=== PATIENT | female | born 1935 | race Caucasian/White ===

== ENCOUNTER 2016-07-09 22:54 | Inpatient (IN) | payer MEDICARE ==
--- NOTE | 2016-07-09 23:26 | ED ---
General Adult HPI - General Source: RN notes reviewed, old records reviewed <Geronimo Mcdaniel - Last Filed: 07/10/16 00:37> <Xavier Andrade - Last Filed: 07/10/16 03:10> - General Stated complaint: SOB Time Seen by Provider: 07/09/16 23:17 - History of Present Illness Initial comments: This is an 80 female to the ED with co SOB, and BL LE swelling, patient has history of hypertension and diabetes. Patient that the patient's symptoms began to start today although family thinks maybe for a few days now. Patient has no prior physicist emergency room. She herself denies any specific medical office. She has no chest pain. No fevers. Mild cough no congestion just complaining of shortness of breath and leg swelling. Patient states leg swelling started just today. (Geronimo Mcdaniel) - Related Data Home Medications Medication Instructions Recorded Confirmed Insulin Glargine,Hum.rec.anlog 30 unit SQ HS PRN 07/09/16 07/09/16 [Lantus Solostar] Insulin Glulisine [Apidra] 12 - 20 unit SQ BID 07/09/16 07/09/16 Losartan [Cozaar] 25 mg PO DAILY 07/09/16 07/09/16 Allergies Allergy/AdvReac Type Severity Reaction Status Date / Time Penicillins Allergy Rash/Hives Verified 07/09/16 23:31 Review of Systems ROS Other: All systems not noted in ROS Statement are negative. <Geronimo Mcdaniel - Last Filed: 07/10/16 00:37> ROS Other: All systems not noted in ROS Statement are negative. <Xavier Andrade - Last Filed: 07/10/16 03:10> ROS Statement: Those systems with pertinent positive or pertinent negative responses have been documented in the HPI. General Exam General appearance: alert, in no apparent distress, anxious Head exam: Present: atraumatic, normocephalic, normal inspection Eye exam: Present: normal appearance, PERRL, EOMI. Absent: scleral icterus, conjunctival injection, periorbital swelling ENT exam: Present: mucous membranes dry Neck exam: Present: normal inspection. Absent: tenderness, meningismus, lymphadenopathy Respiratory exam: Present: normal lung sounds bilaterally, respiratory distress , accessory muscle use, decreased breath sounds, prolonged expiratory. Absent: wheezes, rales, rhonchi, stridor Cardiovascular Exam: Present: tachycardia, irregular rhythm, normal heart sounds. Absent: systolic murmur, diastolic murmur, rubs, gallop, clicks GI/Abdominal exam: Present: soft, normal bowel sounds. Absent: distended, tenderness, guarding, rebound, rigid Extremities exam: Present: normal inspection, full ROM, normal capillary refill , other (Bilateral lower extremity edema). Absent: tenderness, pedal edema, joint swelling, calf tenderness Back exam: Present: normal inspection Neurological exam: Present: alert, oriented X3, CN II-XII intact Psychiatric exam: Present: normal affect, normal mood Skin exam: Present: warm, dry, intact, normal color. Absent: rash <Geronimo Mcdaniel - Last Filed: 07/10/16 00:37> Course <Geronimo Mcdaniel - Last Filed: 07/10/16 00:37> <Xavier Andrade - Last Filed: 07/10/16 03:10> Vital Signs 07/09/16 07/10/16 07/10/16 23:25 00:19 00:49 Temperature 96.8 F L Pulse Rate 72 98 83 Respiratory 22 18 18 Rate Blood Pressure 155/85 168/70 163/90 O2 Sat by Pulse 96 97 97 Oximetry 07/10/16 01:37 Temperature Pulse Rate 89 Respiratory 18 Rate Blood Pressure 115/57 O2 Sat by Pulse 96 Oximetry - Reevaluation(s) Reevaluation #1: 07/10/16 00:36 Patient is refusing breathing treatments at this time (Geronimo Mcdaniel) EKG Findings - EKG Comments: EKG Findings:: EKG shows A. fib with RVR rate 108, QRS 64, QTc 201 <Geronimo Mcdaniel - Last Filed: 07/10/16 00:37> Medical Decision Making - Lab Data Result diagrams: 07/09/16 23:30 07/09/16 23:30 - Radiology Data Radiology results: report reviewed (Chest x-ray shows left lower and lingular infiltrate, possible severe atelectasis), image reviewed <Geronimo Mcdaniel - Last Filed: 07/10/16 00:37> - Lab Data Result diagrams: 07/09/16 23:30 07/09/16 23:30 <Xavier Andrade - Last Filed: 07/10/16 03:10> - Lab Data Lab Results 07/09/16 07/09/16 07/09/16 Range/Units 23:30 23:30 23:30 WBC 8.2 (3.8-10.6) k/uL RBC 3.93 (3.80-5.40) m/uL Hgb 11.5 (11.4-16.0) gm/dL Hct 35.4 (34.0-46.0) % MCV 90.1 (80.0-100.0) fL MCH 29.3 (25.0-35.0) pg MCHC 32.6 (31.0-37.0) g/dL RDW 13.2 (11.5-15.5) % Plt Count 222 (150-450) k/uL Neutrophils % 72 % Lymphocytes % 18 % Monocytes % 5 % Eosinophils % 2 % Basophils % 0 % Neutrophils # 5.8 (1.3-7.7) k/uL Lymphocytes # 1.5 (1.0-4.8) k/uL Monocytes # 0.4 (0-1.0) k/uL Eosinophils # 0.2 (0-0.7) k/uL Basophils # 0.0 (0-0.2) k/uL PT (9.0-12.0) sec INR (<1.1) APTT (22.0-30.0) sec D-Dimer (<0.60) mg/L FEU Sodium 134 L (137-145) mmol/L Potassium 4.9 (3.5-5.1) mmol/L Chloride 100 (98-107) mmol/L Carbon Dioxide 25 (22-30) mmol/L Anion Gap 9 mmol/L BUN 25 H (7-17) mg/dL Creatinine 1.20 H (0.52-1.04) mg/dL Est GFR (MDRD) Af Amer 52 (>60 ml/min/1.73 sqM) Est GFR (MDRD) Non-Af 43 (>60 ml/min/1.73 sqM) Glucose 93 (74-99) mg/dL Calcium 9.5 (8.4-10.2) mg/dL Magnesium 1.9 (1.6-2.3) mg/dL Total Bilirubin 0.3 (0.2-1.3) mg/dL AST 20 (14-36) U/L ALT 36 (9-52) U/L Alkaline Phosphatase 102 (38-126) U/L Total Creatine Kinase 38 (30-135) U/L CK-MB (CK-2) 0.5 (0.0-2.4) ng/mL CK-MB (CK-2) Rel Index 1.3 Troponin I <0.012 (0.000-0.034) ng/mL NT-Pro-B Natriuret Pep pg/mL Total Protein 7.3 (6.3-8.2) g/dL Albumin 3.9 (3.5-5.0) g/dL 07/09/16 07/09/16 Range/Units 23:30 23:30 WBC (3.8-10.6) k/uL RBC (3.80-5.40) m/uL Hgb (11.4-16.0) gm/dL Hct (34.0-46.0) % MCV (80.0-100.0) fL MCH (25.0-35.0) pg MCHC (31.0-37.0) g/dL RDW (11.5-15.5) % Plt Count (150-450) k/uL Neutrophils % % Lymphocytes % % Monocytes % % Eosinophils % % Basophils % % Neutrophils # (1.3-7.7) k/uL Lymphocytes # (1.0-4.8) k/uL Monocytes # (0-1.0) k/uL Eosinophils # (0-0.7) k/uL Basophils # (0-0.2) k/uL PT 10.5 (9.0-12.0) sec INR 1.0 (<1.1) APTT 24.6 (22.0-30.0) sec D-Dimer 1.16 H (<0.60) mg/L FEU Sodium (137-145) mmol/L Potassium (3.5-5.1) mmol/L Chloride (98-107) mmol/L Carbon Dioxide (22-30) mmol/L Anion Gap mmol/L BUN (7-17) mg/dL Creatinine (0.52-1.04) mg/dL Est GFR (MDRD) Af Amer (>60 ml/min/1.73 sqM) Est GFR (MDRD) Non-Af (>60 ml/min/1.73 sqM) Glucose (74-99) mg/dL Calcium (8.4-10.2) mg/dL Magnesium (1.6-2.3) mg/dL Total Bilirubin (0.2-1.3) mg/dL AST (14-36) U/L ALT (9-52) U/L Alkaline Phosphatase (38-126) U/L Total Creatine Kinase (30-135) U/L CK-MB (CK-2) (0.0-2.4) ng/mL CK-MB (CK-2) Rel Index Troponin I (0.000-0.034) ng/mL NT-Pro-B Natriuret Pep 1350 pg/mL Total Protein (6.3-8.2) g/dL Albumin (3.5-5.0) g/dL Disposition <Geronimo Mcdaniel - Last Filed: 07/10/16 00:37> <Xavier Andrade - Last Filed: 07/10/16 03:10> Clinical Impression: Congestive heart failure, Community acquired pneumonia, Atrial fibrillation with RVR Disposition: ADMITTED IP TO THIS HOSP Condition: Fair Referrals: Maritza Bee DO [Primary Care Provider] - 1-2 days
[2016-07-09] MEDS ORDERED: IPRATROPIUM-ALBUTEROL 3 ML NEB INHALATION STA (23:29)
[2016-07-09 23:57] LABS: Basophils % (A) 0 %; CH 29.4; CHCM 32.7; Eosinophils # (A) 0.2 k/uL (0-0.7); Eosinophils % (A) 2 %; HCT 35.4 % (34.0-46.0); HDW 2.59; HGB 11.5 gm/dL (11.4-16.0); Luc # (Auto) 0.22; Luc % (Auto) 3; Lymphocytes # (A) 1.5 k/uL (1.0-4.8); Lymphocytes % (A) 18 %; MCH 29.3 pg (25.0-35.0); MCHC 32.6 g/dL (31.0-37.0); MCV 90.1 fL (80.0-100.0); Mean Platelet Volume 8.4; Monocytes # (A) 0.4 k/uL (0-1.0); Monocytes % (A) 5 %; Neutrophils # (A) 5.8 k/uL (1.3-7.7); Neutrophils % (A) 72 %; RBC 3.93 m/uL (3.80-5.40); RDW 13.2 % (11.5-15.5); WBC 8.2 k/uL (3.8-10.6); WBC (Perox) 8.71
[2016-07-10 00:04] LABS: Creatine Kinase 38 U/L (30-135)
[2016-07-10 00:07] LABS: Calcium 9.5 mg/dL (8.4-10.2); Magnesium 1.9 mg/dL (1.6-2.3); Potassium 4.9 mmol/L (3.5-5.1); Total Bilirubin 0.3 mg/dL (0.2-1.3); Total Protein 7.3 g/dL (6.3-8.2)
[2016-07-10 00:10] LABS: Partial Thromboplastin Time 24.6 sec (22.0-30.0); Prothrombin Time 10.5 sec (9.0-12.0)
[2016-07-10 00:17] LABS: Creatine Kinase MB 0.5 ng/mL (0.0-2.4); Troponin I <0.012 ng/mL (0.000-0.034)
[2016-07-10] MEDS ORDERED: RX INFO: IV CONTRAST WAS GIVEN 1 EACH MISC MISCELLANE PRN (00:32)
[2016-07-10] MEDS ORDERED: PNEUMONIA PROTOCOL UTILIZED 1 EACH MISC PO PRN (00:33)
[2016-07-10] MEDS ORDERED: PIPERACILLIN-TAZOBACTAM 3.375 GM in DEXTROSE/WATER 1 50ML.BAG IVPB STA (00:33)
[2016-07-10] MEDS ORDERED: IPRATROPIUM-ALBUTEROL 3 ML NEB INHALATION PRN (00:33)
[2016-07-10] MEDS ORDERED: LEVOFLOXACIN 750MG-D5W PMX 750 MG in DEXTROSE/WATER 1 150ML.BAG IVPB STA (00:33)
[2016-07-10] MEDS ORDERED: HEPARIN SODIUM,PORCINE 5,000 UNIT/ML 1 ML VIAL IV PRN (00:37)
[2016-07-10] MEDS ORDERED: HEPARIN SODIUM,PORCINE 5,000 UNIT/ML 1 ML VIAL IV ONE (00:37)
[2016-07-10] MEDS ORDERED: DILTIAZEM 5 MG/ML 5 ML VIAL IVP STA (00:44)
[2016-07-10] MEDS ORDERED: DILTIAZEM 125 MG in SODIUM CHLORIDE 0.9% 100 ML IV ONE (00:44)
[2016-07-10] MEDS ORDERED: HEPARIN SODIUM,PORCINE/D5W PMX 25,000 UNIT in DEXTROSE/WATER 1 500ML.BAG IV SCH (00:45)
--- NOTE | 2016-07-10 01:06 | XR ---
Chest PA and lateral views INDICATION: Dyspnea COMPARISON: None. FINDINGS: PA and lateral views of the chest are obtained. There is cardiomegaly and thoracic aortic atherosclerosis. Pulmonary vasculature is congested and there is interstitial edema. There are moderate right and small left layering pleural effusions with bibasilar airspace disease, atelectasis versus infiltrate. There is no pneumothorax. Limited skeletal evaluation demonstrates no acute findings. IMPRESSION: 1. Cardiomegaly with congestive heart failure and bilateral pleural effusions, moderate on the left and small on the right. 2. Bibasilar airspace disease, atelectasis versus infiltrate.
[2016-07-10] MEDS: SODIUM CHLORIDE 0.9% 1,000 ML IV SCH (01:08)
--- NOTE | 2016-07-10 02:17 | CT ---
INDICATION: Chest pain TECHNIQUE: CT acquisition was performed through the chest per CT angiogram protocol following the administration of IV contrast. Coronal and sagittal reformatted images and 3-D MIP reconstructed images were provided. Total DLP 409 mGy-cm; CTDIvol 138.10 mGy. COMPARISON: CXR 07/09/16 FINDINGS: No evidence of pulmonary embolus. Main pulmonary artery is normal in caliber. There is cardiomegaly without pericardial effusion. There is reflux of contrast into the hepatic veins indicating elevated right heart filling pressure. Thoracic aorta is normal in caliber. 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 There is multicompartment mediastinal adenopathy including high right paratracheal lymph nodes measuring 13 mm short axis. There is an enlarged left scalene lymph node. There is a moderate organizing left pleural effusion with compressive atelectasis of the left lower lobe and lingula. The right lung and aerated portions of the left upper lobe demonstrate diffuse alveolar groundglass attenuation suggesting pulmonary edema. There is no pneumothorax. Visualized upper abdomen demonstrates prior cholecystectomy and fat- containing ventral abdominal wall hernia. Bones are osteopenic. There is no evidence of acute fracture or malalignment. Crescentic calcification/ossification is noted in the region of the right rotator cuff and may represent calcific tendinopathy or sequela of prior injury. IMPRESSION: 1. No CT evidence of acute pulmonary embolism. 2. Moderate organizing left pleural effusion with left lower lobe and lingular atelectasis. 3. Bilateral alveolar groundglass opacity in the right lung and aerated left upper lobe suggesting pulmonary edema. 4. Cardiomegaly with evidence of elevated right heart filling pressure. 5. Multicompartment mediastinal adenopathy with paratracheal lymph nodes measuring up to 13 mm. Enlarged left scalene lymph node is noted. 6. Ventral abdominal wall hernia containing fat. 7. 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
--- NOTE | 2016-07-10 02:32 | US ---
INDICATION: TECHNIQUE: Real-time sonographic imaging of the bilateral common femoral, superficial femoral and popliteal veins is performed utilizing intermittent compression. The study is supplemented with color flow imaging and duplex Doppler during spontaneous flow and calf augmentation. COMPARISON: None. FINDINGS: Normal compressibility is demonstrated from the common femoral vein to the popliteal vein bilaterally. There is normal response to augmentation. Normal spontaneous phasic flow is noted. IMPRESSION: No evidence of deep venous thrombosis.
[2016-07-10 05:57] LABS: Glucose,Whole Blood 171 mg/dL (75-99)
[2016-07-10] MEDS ORDERED: METOPROLOL TARTRATE 50 MG TAB PO SCH (10:15)
[2016-07-10] MEDS: LOSARTAN 25 MG TAB PO SCH (11:06)
[2016-07-10] MEDS: APIXABAN 2.5 MG TABLET PO SCH ×2 (11:06→21:01)
[2016-07-10] MEDS: FUROSEMIDE 10 MG/ML 4 ML VIAL IV SCH ×2 (11:07→21:02)
--- NOTE | 2016-07-10 11:28 | ECHOF ---
Referral Reason:AFIB MEASUREMENTS -------- HEIGHT: 132.1 cm WEIGHT: 81.7 kg BP: 140/60 RVIDd: 1.6 cm (< 3.3) IVSd: 1.0 cm (0.6 - 1.1) LVIDd: 4.1 cm (3.9 - 5.3) LVPWd: 1.2 cm (0.6 - 1.1) IVSs: 1.4 cm LVIDs: 2.7 cm LVPWs: 1.7 cm LA Diam: 3.4 cm (2.7 - 3.8) LAESV Index (A-L): 33.55 ml/m Ao Diam: 2.4 cm (2.0 - 3.7) AV Cusp: 1.6 cm (1.5 - 2.6) LA Diam: 3.4 cm (2.7 - 3.8) MV EXCURSION: 13.362 mm (> 18.000) MV EF SLOPE: 46 mm/s (70 - 150) EPSS: 0.4 cm MV E Slim: 1.47 m/s MV DecT: 203 ms MV A Slim: 0.53 m/s MV E/A Ratio: 2.75 RAP: 5.00 mmHg RVSP: 56.30 mmHg FINDINGS -------- Undetermined rhythm. This was a technically adequate study. There is mild concentric left ventricular hypertrophy. Overall left ventricular systolic function is low-normal with, an EF between 50 - 55 %. The right ventricle is normal in size. LA is midly dilated 29-33ml/m2. The right atrial size is normal. There is mild aortic valve sclerosis. There is mild aortic regurgitation. Mild mitral annular calcification present. Mild mitral regurgitation is present. Mild tricuspid regurgitation present. There is moderate pulmonary hypertension. The right ventricular systolic pressure, as measured by Doppler, is 56.30mmHg. There is no pulmonic regurgitation present. The aortic root size is normal. There is no pericardial effusion. CONCLUSIONS -------- 1. There is mild concentric left ventricular hypertrophy. 2. The right ventricular systolic pressure, as measured by Doppler, is 56.30mmHg. 3. There is no pulmonic regurgitation present. 4. Overall left ventricular systolic function is low-normal with, an EF between 50 - 55 %. 5. LA is midly dilated 29-33ml/m2. 6. There is mild aortic valve sclerosis. 7. There is mild aortic regurgitation. 8. Mild mitral annular calcification present. 9. Mild mitral regurgitation is present. 10. Mild tricuspid regurgitation present. 11. There is moderate pulmonary hypertension. BRIM STRETCHER: Stacie Angel RDCS
--- NOTE | 2016-07-10 11:32 | CONS ---
DATE OF CONSULTATION: CHIEF COMPLAINT: Shortness of breath. Ailin is an 80-year-old lady with no significant past medical history who presented to hospital with moderate to severe exertional shortness of breath that came on suddenly and she also had leg edema with moderate to severe intensity at rest, got worse with activity without clear-cut relieving or exacerbating factors. EKG showed atrial fibrillation with rapid ventricular rate and frequent PVCs. Labs showed that the hemoglobin is normal. D-dimer was slightly elevated, but she went on to have a CT scan of the chest that was negative for pulmonary embolism. Chest x-ray revealed left-sided pleural effusion and BNP is elevated suggestive of acute onset congestive heart failure. We do not have an LV function on her at this time. She was also in A. fib with RVR, A. fib with poorly controlled ventricular rate. I believe patient's clinical presentation is related to both the atrial fibrillation and the congestive heart failure and we are going to treat both of them. I will do an echocardiogram to document her LV function. Once her heart rate is adequately controlled and she is adequately anticoagulated and out of failure, she can be discharged home and work-up and treatment pursued as outpatient. She will need cardiac stress test to rule out ischemic heart disease and will subsequently undergo cardioversion. Past medical history is significant for insulin-requiring diabetes and hypertension. Medications include: 1. Cozaar 25 daily. 2. Insulin. THE PATIENT IS ALLERGIC TO PENICILLIN. FAMILY HISTORY: Negative for premature coronary artery disease. SOCIAL HISTORY: Negative for smoking, ETOH abuse, or drug abuse. REVIEW OF SYSTEMS: HEENT: Unremarkable. CARDIAC: As described above. RESPIRATORY: As described above. GI: Negative. GENITOURINARY: Negative. Allergy/immunology: Negative. SKIN: Negative. MUSCULOSKELETAL: Significant for arthritis. PSYCHOSOCIAL: Negative. Dermatology: Negative. CONSTITUTIONAL: Negative. Oncological: Negative. HEMATOLOGICAL: Negative. REPRODUCTIVE HEALTHCARE ASSISTANT: Negative. On exam, heart rate is 100 beats per minute, afebrile. Blood pressure is 140/80, respiratory rate is 18. Chest exam reveals diminished air entry at the left base. Heart exam reveals first and second heart sounds, irregular rhythm. ABDOMEN: Soft. Exam of the extremities did not reveal any edema. Peripheral pulses are palpable. EKG shows atrial fibrillation. Labs have been reviewed. ASSESSMENT: 1. Persistent atrial fibrillation. 2. Acute onset congestive heart failure. PLAN: I will treat the patient with Eliquis, beta blockers, intravenous diuretics, PARVIZ inhibitors. I anticipate her getting better over the next 1 to 2 days.
[2016-07-10 11:59] LABS: Glucose,Whole Blood 179 mg/dL (75-99)
[2016-07-10] MEDS ORDERED: PIPERACILLIN-TAZOBACTAM 3.375 GM in DEXTROSE/WATER 1 50ML.BAG IVPB SCH (16:00)
[2016-07-10 16:48] LABS: Glucose,Whole Blood 269 mg/dL (75-99)
[2016-07-10] MEDS ORDERED: INSULIN GLARGINE 100 UNIT/ML 10 ML VIAL SQ PRN (19:01)
[2016-07-10 21:34] LABS: Glucose,Whole Blood 237 mg/dL (75-99)
[2016-07-10] MEDS: INSULIN LISPRO (humaLOG) 300 UNIT/3 ML VIAL SQ SCH (22:27)
[2016-07-11] MEDS: METOPROLOL TARTRATE 50 MG TAB PO SCH ×3 (02:08→20:33)
[2016-07-11] MEDS: SODIUM CHLORIDE 0.9% 1,000 ML IV SCH (04:24)
[2016-07-11 06:26] LABS: Glucose,Whole Blood 177 mg/dL (75-99)
[2016-07-11 06:28] LABS: Basophils % (A) 0 %; Eosinophils # (A) 0.1 k/uL (0-0.7); Eosinophils % (A) 1 %; HCT 33.6 % (34.0-46.0); HDW 2.55; HGB 10.7 gm/dL (11.4-16.0); Luc # (Auto) 0.22; Luc % (Auto) 2; Lymphocytes # (A) 1.4 k/uL (1.0-4.8); Lymphocytes % (A) 15 %; MCH 28.9 pg (25.0-35.0); MCHC 31.8 g/dL (31.0-37.0); MCV 90.8 fL (80.0-100.0); Mean Platelet Volume 8.9; Monocytes # (A) 0.6 k/uL (0-1.0); Monocytes % (A) 6 %; Neutrophils # (A) 7.1 k/uL (1.3-7.7); Neutrophils % (A) 76 %; RDW 13.1 % (11.5-15.5); WBC 9.3 k/uL (3.8-10.6); WBC (Perox) 9.88
[2016-07-11 06:44] LABS: Calcium 9.2 mg/dL (8.4-10.2); Potassium 4.6 mmol/L (3.5-5.1)
[2016-07-11] MEDS: INSULIN LISPRO (humaLOG) 300 UNIT/3 ML VIAL SQ SCH ×4 (07:02→20:39)
--- NOTE | 2016-07-11 07:28 | XR ---
EXAMINATION TYPE: XR chest 2V DATE OF EXAM: 07/11/2016 7:20 AM COMPARISON: 07/09/2016 TECHNIQUE: PA and lateral views submitted. HISTORY: Pain FINDINGS: Large area of consolidation pleural effusion on the left. Diffuse interstitial pattern and cardiomega ly. Atherosclerotic change aorta, diffuse osteopenia and arthropathy shoulders. Underlying COPD suspe cted. Chronic rib deformity on the right. Could not exclude paratracheal or mediastinal adenopathy. IMPRESSION: 1. Moderate-sized left pleural effusion with consolidation. 2. Subsegmental changes involving the right lung. With interstitial process. May represent interstiti al pneumonitis or mild superimposed venous congestion on a background of COPD. 3. Cannot exclude paratracheal or mediastinal adenopathy.
[2016-07-11 08:22] LABS: Hemoglobin A1C 6.3 % (4.2-6.1)
[2016-07-11] MEDS ORDERED: LEVOFLOXACIN 750MG-D5W PMX 750 MG in DEXTROSE/WATER 1 150ML.BAG IVPB SCH (09:00)
[2016-07-11] MEDS: LOSARTAN 25 MG TAB PO SCH (09:12)
[2016-07-11] MEDS: APIXABAN 2.5 MG TABLET PO SCH (09:12)
[2016-07-11] MEDS: FUROSEMIDE 10 MG/ML 4 ML VIAL IV SCH ×2 (09:12→20:39)
[2016-07-11 10:20] VITALS: RESP 18
--- NOTE | 2016-07-11 10:36 | PN ---
DATE OF SERVICE: 07/10/2016 CHIEF COMPLAINT: Shortness of breath and leg swelling. HISTORY OF PRESENT ILLNESS: This 80-year-old woman with a past medical history of multiple medical problems including diabetes, hypertension, section, cholecystectomy being followed by Dr. Bee in the outpatient setting is complaining of shortness of breath, which is increasing with exertion and as well also bilateral leg swelling. Patient came to [facility] and was found to have CHF and possible pneumonia on the left side. The patient was admitted for further evaluation and treatment. There is no history of any fever, rigors. No history of headaches. The patient complained of occasional cough. Creatinine is elevated. Initial blood sugars also elevated. PAST MEDICAL HISTORY: History of diabetes, hypertension, history of cholecystectomy. Medications prior to admission include: 1. Insulin Apidra a.c. b.i.d. 2. Cozaar 25 mg daily. 3. Insulin Lantus 30 units subcu q.h.s. p.r.n. Allergies are PENICILLIN and ORANGE JUICE. FAMILY HISTORY: No history of heart disease or strokes in the family. SOCIAL HISTORY: No history of smoking. No history of alcohol abuse. REVIEW OF SYSTEMS: ENT: Diminishing hearing, diminished vision. CARDIOVASCULAR: As mentioned earlier. RESPIRATORY: As mentioned earlier. GI: No nausea. : No dysuria. NERVOUS SYSTEM: No numbness or weakness. ALLERGY/IMMUNOLOGY: No history of asthma or hayfever. MUSCULOSKELETAL: As mentioned earlier. ENDOCRINE: Diabetes to especially in the stomach. HEMATOLOGY: No history of anemia. ENDOCRINE: Diabetes mellitus. CONSTITUTIONAL: As mentioned earlier. DERMATOLOGY: Negative. RHEUMATOLOGY: Negative. PSYCHIATRY: As mentioned earlier. PHYSICAL EXAMINATION: Alert and oriented x3. Pulse is 60. Blood pressure 138/80, respiration 22, temperature 97.5, pulse ox 96% on 2 L HEENT: Conjunctivae normal. Oral mucosa moist. NECK: No jugular venous distention. No carotid bruit. No lymph node enlargement. CARDIOVASCULAR: S1 and S2, muffled. No S3, no S4. RESPIRATORY: Breath sounds diminished at the bases. Bilateral scattered rhonchi and crackles ABDOMEN: Soft, nontender. LEGS: No edema, no swelling. NERVOUS SYSTEM: No focal deficits. Labs are at this time D-dimer is 1.16. Creatinine is 1.20. ASSESSMENT: 1. Congestive heart failure, acute exacerbation. 2. Possible left lower lobe pneumonia. 3. Diabetes mellitus type 2. 4. Increased creatinine with possible chronic kidney disease stage III. 5. Hyponatremia. 6. Increased d-dimer. 7. Increased D-dimer without any evidence of pulmonary embolism. 8. Left pleural effusion on the CAT scan. 9. Premature ventricular contractions. 10. Hypertension. 11. Diabetes mellitus type 2. 12. History of cholecystectomy. 13. FULL CODE. RECOMMENDATIONS AND DISCUSSION: This 80-year-old woman who presented with multiple complex medical issues, we will monitor the patient closely. Continue the current medications. Continue symptomatic treatment. Continue with IV diuretics. Also initiate empiric antibiotics, cardiology and pulmonary consultations, bronchodilators, 2-D echo with Doppler. Guarded prognosis because of multiple complex medical issues. Further recommendations to follow. A copy of dictation forwarded to Dr. Bee who is the primary physician. with the patient and family MANUELITO
--- NOTE | 2016-07-11 11:25 | HP ---
DATE OF ADMISSION: The patient is a very pleasant 80-year-old female came with progressive shortness of breath and orthopnea. No clear cut PND. Patient was also complaining of bilateral lower leg swelling. Has been going on for more than a week. Denied any fever or chills. Was complaining of cough. Unable to produce any sputum. Denied any fever or chills. The patient is found to have ( ) moderate on the left and mild on the right with pulmonary venous congestion. Patient had a CT angio of the chest which is negative for pulmonary embolism . No evidence of pneumonia on the CT. I discontinued the antibiotics. Patient is also found to be in atrial fibrillation with rapid ventricular rate was started on Cardizem. Echocardiogram was obtained which showed normal ejection fraction. Her pulmonary ( )is probably precipitated by atrial fibrillation. REVIEW OF SYSTEMS: CONSTITUTIONAL: No fever, no malaise, no fatigue. HEENT: No recent visual problems or hearing problems. Denied any sore throat. CARDIOVASCULAR: As described in HPI. PULMONARY: No shortness of breath, no cough, no hemoptysis. GASTROINTESTINAL: No diarrhea, no nausea, no vomiting, no abdominal pain. Normoactive bowel sounds. NEUROLOGICAL: No headaches, no weakness, no numbness. HEMATOLOGICAL: Denies any bleeding or petechiae. GENITOURINARY: Denies any burning micturition, frequency, or urgency. MUSCULOSKELETAL/RHEUMATOLOGICAL: Denies any joint pain, swelling, or any muscle pain. ENDOCRINE: Denies any polyuria or polydipsia. The rest of the 14 point review of systems is negative. PAST MEDICAL HISTORY: Significant for diabetes mellitus, hypertension, section, cholecystectomy. SOCIAL HISTORY: Denied any smoking, alcohol abuse or any drug abuse. FAMILY HISTORY: Significant for diabetes mellitus in the family. PHYSICAL EXAMINATION: VITAL SIGNS: Temperature 97.5, pulse of 60, respiratory rate of 22, blood pressure is 138/80, saturating at 96% on 2 L of O2 nasal cannula. GENERAL: The patient is alert and oriented x3, not in any acute distress. Well developed, well nourished. HEENT: Pupils are round and equally reacting to light. EOMI. No scleral icterus. No conjunctival pallor. Normocephalic, atraumatic. No pharyngeal erythema. No thyromegaly. CARDIOVASCULAR: S1 and S2 present. Patient has elevated JVD. Bilateral pedal edema, 1 to 2+ pitting pedal edema. Rhythm is tachycardiac. LUNG EXAMINATION: Rhonchus breath sounds. Bilateral basilar crackles were appreciated. No wheezing was appreciated. ABDOMEN: Soft, nontender, nondistended, normoactive bowel sounds. No palpable organomegaly. MUSCULOSKELETAL: No joint swelling or deformity. EXTREMITIES: No cyanosis, clubbing, or pedal edema. NEUROLOGICAL: Gross neurological examination did not reveal any focal deficits. SKIN: No rashes. LABORATORY DATA: CBC and CMP are abnormal for elevated BUN and creatinine of 25 and 1.2. Did not have ( ) creatinine. Sodium 134. Patient's home medications include: 1. Insulin glargine 30 units and ( ). 2. Losartan 25 p.o. daily. ASSESSMENT AND PLAN: 1. Shortness of breath and progressive dyspnea, probably secondary to congestive heart failure, chronic diastolic dysfunction with acute exacerbation. Acute hypoxic respiratory failure due to congestive heart failure, chronic diastolic dysfunction acute exacerbation . 2. New onset atrial fibrillation. Patient was started on Eliquis and ( ) oral medications and Cardizem is being discontinued. Patient has a normal ejection fraction. Patient has probably chronic diastolic dysfunction with acute exacerbation. 3. Diabetes mellitus. Patient will be continued on her home regimen. 4. Hypertension. Patient will be continued on losartan, which is also her ( ). 5. Acute renal failure secondary prerenal azotemia secondary to congestive heart failure exacerbation. 6. Hypovolemic hyponatremia secondary to congestive heart failure.
[2016-07-11 11:52] LABS: Glucose,Whole Blood 193 mg/dL (75-99)
--- NOTE | 2016-07-11 12:29 | US ---
EXAMINATION TYPE: US chest DATE OF EXAM: 07/11/2016 11:55 AM COMPARISON: CXR in PACS CLINICAL HISTORY: lt pleural effusion. SOB, left pleural effusion EXAM MEASUREMENTS: Left Pleural Effusion fluid pocket: 9.5 cm Left skin to fluid thickness: 5.1 cm Left side marked for possible thoracentesis outside the dept. Pulmonologists are able to review the images in the patient?s EMR. TECHNOLOGIST IMPRESSION: Left pleural effusion Moderate left pleural effusion is noted. IMPRESSIONS: Left pleural effusion, the overlying skin is marked for the referring clinician for poss ible thoracentesis
--- NOTE | 2016-07-11 13:12 | P.CNPUL ---
History of Present Illness Consult date: 07/11/16 Requesting physician: Clinton Corral Reason for consult: dyspnea Chief complaint: Shortness of breath History of present illness: This is an 80-year-old female with history of multiple medical problems including diabetes, hypertension, presented to the ER yesterday with a few days ' history of shortness of breath and increased swelling in her lower extremities. Chest x-ray showed congestive heart failure and good sized left- sided pleural effusion. This was confirmed on the CT of the chest and on ultrasound. The effusion is most likely secondary to congestive heart failure, however the possibility of parapneumonic effusion or malignant pleural effusion is not entirely ruled out. Considering the abnormal chest x-ray and the presentation, I was asked to see this patient on consultation. Patient is not a great historian, but family at bedside were answering most of my questions. Patient denies any headaches no blurred vision no dizziness no chest pain no nausea no vomiting no abdominal pain no melena and no hematemesis. Review of Systems 14 point review of systems were obtained, please refer to pertinent positives and negatives in HPI. Past Medical History Past Medical History: Diabetes Mellitus, Hypertension History of Any Multi-Drug Resistant Organisms: None Reported Past Surgical History: Section, Cholecystectomy Past Anesthesia/Blood Transfusion Reactions: No Reported Reaction Past Psychological History: No Psychological Hx Reported Smoking Status: Never smoker Past Alcohol Use History: None Reported Past Drug Use History: None Reported Medications and Allergies Home Medications Medication Instructions Recorded Confirmed Type Insulin Glargine,Hum.rec.anlog 30 unit SQ HS PRN 07/09/16 07/10/16 History [Lantus Solostar] Insulin Glulisine [Apidra] See Protocol SQ AC-BID 07/09/16 07/10/16 History Losartan [Cozaar] 25 mg PO DAILY 07/09/16 07/10/16 History Allergies Allergy/AdvReac Type Severity Reaction Status Date / Time Penicillins Allergy Rash/Hives Verified 07/10/16 08:39 orange juice AdvReac Nausea Verified 07/10/16 08:39 Physical Exam Vitals: Vital Signs Temp Pulse Resp BP Pulse Ox 07/11/16 12:00 97.3 F L 58 L 18 140/78 97 07/11/16 08:00 97.1 F L 74 18 158/71 97 07/11/16 04:00 97.0 F L 59 L 16 133/78 98 07/11/16 00:00 96.7 F L 55 L 16 154/86 97 07/10/16 20:00 97.2 F L 60 18 127/89 98 07/10/16 16:00 97.5 F L 60 22 138/80 96 Intake and Output 07/10/16 07/11/16 07/11/16 22:59 06:59 14:59 Intake Total 150 150 Balance 150 150 Intake: Oral 150 150 Other: Voiding Method Toilet Toilet Toilet # Voids 1 1 Weight 80.6 kg Physical Exam: Revealed an 80-year-old female in no distress HEENT:[Neck is supple.] [No neck masses.] [No thyromegaly.] [No JVD.] Chest: [Diminished breath sounds and dullness at the left base otherwise unremarkable.] Cardiac Exam: [Normal S1 and S2, no S3 gallop, no murmur.] Abdomen: [Soft, nontender, no megaly, no rebound, no guarding, normal bowel sounds.] Extremities: [No clubbing, no edema, no cyanosis.] Neurological Exam: [Patient is confused but no focal neurologic deficit otherwise.] Results - Laboratory Findings CBC and BMP: 07/11/16 05:36 07/11/16 05:36 PT/INR, D-dimer PT 10.5 sec (9.0-12.0) 07/09/16 23:30 INR 1.0 (<1.1) 07/09/16 23:30 D-Dimer 1.16 mg/L FEU (<0.60) H 07/09/16 23:30 Abnormal lab findings: Abnormal Labs 07/10/16 07/10/16 07/10/16 05:55 06:34 11:57 RBC Hgb Hct APTT 64.0 H Sodium Chloride BUN Creatinine Glucose POC Glucose (mg/dL) 171 H 179 H Hemoglobin A1c 07/10/16 07/10/16 07/11/16 16:43 21:32 05:36 RBC Hgb Hct APTT Sodium Chloride BUN Creatinine Glucose POC Glucose (mg/dL) 269 H 237 H Hemoglobin A1c 6.3 H 07/11/16 07/11/16 07/11/16 05:36 05:36 06:20 RBC 3.70 L Hgb 10.7 L Hct 33.6 L APTT Sodium 134 L Chloride 97 L BUN 29 H Creatinine 1.75 H Glucose 159 H POC Glucose (mg/dL) 177 H Hemoglobin A1c 07/11/16 11:45 RBC Hgb Hct APTT Sodium Chloride BUN Creatinine Glucose POC Glucose (mg/dL) 193 H Hemoglobin A1c - Diagnostic Findings Chest x-ray: image reviewed (Chest x-ray is suggestive of congestive heart failure and left pleural effusion) Assessment and Plan Plan: Impression: 1 Shortness of breath secondary to left pleural effusion which is most likely cardiac in nature and secondary to congestive heart failure unless proven otherwise. The patient will eventually need a diagnostic and therapeutic left-sided thoracentesis which I plan to do either today or in a.m. In the meantime, patient will be taken off eliquis, until thoracentesis has been performed. 2 moderate pulmonary hypertension as noted on the echocardiogram 3 chronic atrial fibrillation as noted on her monitor upon presentation, patient was placed on eliquis,, beta blockers, diuretics, pallavi inhibitors, but I will go ahead and hold her anticoagulation therapy for now until we perform safe thoracentesis. The purpose of that thoracentesis would be diagnostic and therapeutic at the same time. Time with Patient: Greater than 30
--- NOTE | 2016-07-11 16:15 | P.PN ---
Subjective This is a pleasant 80-year-old female with a history of diabetes and hypertension. She presented to the emergency department with complaints of moderate to severe exertional shortness of breath that came on suddenly as well as lower extremity edema. EKG showed atrial fibrillation with rapid ventricular response as well as frequent PVCs. Her d-dimer was slightly elevated and computed tomography scan of the chest was negative for PE. Chest x -ray showed CHF with left sided pleural effusion and her BNP was elevated. Echocardiogram showed an ejection fraction of 50-55%. She does have a history of GI bleed with aspirin in the past. Patient's heart rate is much better controlled today. She does continue to have PVCs, bigeminal at times. She is currently on metoprolol 25 mg by mouth twice a day. She does say she is feeling a little bit better today. She continues to complain of some mild orthopnea and dyspnea on exertion. Objective - Vital Signs Vital signs: Vital Signs Temp 97.3 F L 07/11/16 12:00 Pulse 58 L 07/11/16 12:00 Resp 18 07/11/16 12:00 BP 140/78 07/11/16 12:00 Pulse Ox 97 07/11/16 12:00 Intake & Output 07/10/16 07/11/16 07/11/16 18:59 06:59 18:59 Intake Total 300 Output Total 0 Balance 0 300 Weight 80.6 kg Intake: Oral 300 Output: Emesis 0 Other: Voiding Method Toilet Toilet Toilet # Voids 1 - Exam PHYSICAL EXAMINATION: HEENT: Head is atraumatic, normocephalic. Pupils equal, round. Neck is supple. There is no elevated jugular venous pressure. HEART EXAMINATION: Heart sounds irregular irregular, S1 and S2 normal. No murmur or gallop heard. CHEST EXAMINATION: Lungs reveal diminished air entry to left. No chest wall tenderness is noted on palpation or with deep breathing. ABDOMEN: Soft, nontender. Bowel sounds are heard. No organomegaly noted. EXTREMITIES: 2+ peripheral pulses with evidence of trace peripheral edema and no calf tenderness noted. NEUROLOGIC patient is awake, alert and oriented x3. . - Labs CBC & Chem 7: 07/11/16 05:36 07/11/16 05:36 Labs: Abnormal Lab Results - Last 24 Hours (Table) 07/10/16 07/10/16 07/11/16 Range/Units 16:43 21:32 05:36 RBC (3.80-5.40) m/uL Hgb (11.4-16.0) gm/dL Hct (34.0-46.0) % Sodium (137-145) mmol/L Chloride (98-107) mmol/L BUN (7-17) mg/dL Creatinine (0.52-1.04) mg/dL Glucose (74-99) mg/dL POC Glucose (mg/dL) 269 H 237 H (75-99) mg/dL Hemoglobin A1c 6.3 H (4.2-6.1) % 07/11/16 07/11/16 07/11/16 Range/Units 05:36 05:36 06:20 RBC 3.70 L (3.80-5.40) m/uL Hgb 10.7 L (11.4-16.0) gm/dL Hct 33.6 L (34.0-46.0) % Sodium 134 L (137-145) mmol/L Chloride 97 L (98-107) mmol/L BUN 29 H (7-17) mg/dL Creatinine 1.75 H (0.52-1.04) mg/dL Glucose 159 H (74-99) mg/dL POC Glucose (mg/dL) 177 H (75-99) mg/dL Hemoglobin A1c (4.2-6.1) % 07/11/16 Range/Units 11:45 RBC (3.80-5.40) m/uL Hgb (11.4-16.0) gm/dL Hct (34.0-46.0) % Sodium (137-145) mmol/L Chloride (98-107) mmol/L BUN (7-17) mg/dL Creatinine (0.52-1.04) mg/dL Glucose (74-99) mg/dL POC Glucose (mg/dL) 193 H (75-99) mg/dL Hemoglobin A1c (4.2-6.1) % Assessment and Plan Plan: Assessment and plan #1 persistent atrial fibrillation #2 acute onset diastolic congestive heart failure #3 hypertension #4 diabetes At this time, Justin is on hold for thoracentesis to be done tomorrow. At this time continue beta blockers, IV diuretics and PARVIZ inhibitor. Likely change the patient to by mouth Lasix tomorrow. Patient does have a questionable history of GI bleeding while on aspirin. Further recommendations to follow. The above dictated assessment and findings were discussed with signing physician. The impression and plan of care have been directed as dictated. Rosamaria Silva, Nurse Practitioner, acting as scribe for signing physician.
[2016-07-11 16:37] LABS: Glucose,Whole Blood 172 mg/dL (75-99)
[2016-07-11 20:43] LABS: Glucose,Whole Blood 169 mg/dL (75-99)
--- NOTE | 2016-07-12 05:20 | PN ---
DATE OF SERVICE: 07/11/2016 This 80-year-old woman who was admitted with CHF acute exacerbation also had possible left lower pneumonia. The patient has been closely monitored. The patient was diuresed. The patient feeling much better. Multiple consultants are following the patient. The patient also had chronic. Cardiology and Pulmonary consults are following the patient closely. Creatinine is 1.75. The patient also was suspected of pleural fluid and chest ultrasound was done today per Pulmonary and site was marked. Otherwise, the patient's chest x-ray was reviewed by me showed moderate pleural effusions mediastinum lymphadenopathy could not be ruled out. PAST MEDICAL HISTORY: Reviewed. REVIEW OF SYSTEMS: CARDIOVASCULAR: No angina. RESPIRATORY: As mentioned earlier. GI: As mentioned earlier. : No dysuria. . NERVOUS SYSTEM: As mentioned earlier. Current medications are reviewed and include: 1. DuoNeb q.i.d. and p.r.n. 2. Lasix 40 mg IV. 3. Lantus 30 units subcu q.h.s. p.r.n. 4. Humalog. 5. Cozaar. 6. Lopressor. 7. P.r.n. medications. PHYSICAL EXAMINATION: The patient is alert, oriented x3. Pulse 50, blood pressure 142/69, respirations 18, temperature 96.7, pulse ox 95% on 2 L. HEENT: Conjunctivae normal. NECK: No jugular venous distention. CARDIOVASCULAR: S1 and S2, muffled. RESPIRATORY: Breath sounds diminished at the bases. A few scattered rhonchi and crackles. ABDOMEN: Soft, nontender. LEGS: Minimal edema. NERVOUS SYSTEM: Diffusely weak. LAB INVESTIGATIONS: At this time shows WBC 9.3, hemoglobin 10.7. Sodium 134. Creatinine is 1.75. Glucose noted. Hemoglobin A1c 6.3. ASSESSMENT: 1. Congestive heart failure acute exacerbation with acute on chronic diastolic dysfunction, ejection fraction 50% to 55%. 2. Left-sided pleural effusion and possible left lower lobe pneumonia. 3. Diabetes mellitus type 2. 4. Increased creatinine with possible chronic kidney disease, stage III. 5. Hyponatremia. 6. Increased D-dimer without any evidence of pulmonary embolism. 7. Left pleural effusion. The CAT scan. 8. Premature ventricular contractions. 9. Hypertension. 10. History of cholecystectomy. 11. FULL CODE. 12. Mediastinal lymphadenopathy on the CAT scan. RECOMMENDATIONS AND DISCUSSION: Recommend to continue the current medications. Continue symptomatic treatment. Will continue with diuretics. Closely follow with Cardiology and Pulmonology. I would recommend to continue the current medications and symptomatic treatment. Continue with diuretics, monitor closely. Monitor renal functions closely. Prognosis guarded because of multiple complex medical issues and the suspicion of mediastinal lymphadenopathy on the CT scan, but however will follow the patient closely with Pulmonary. Further recommendations to follow. MTDD
[2016-07-12] MEDS: SODIUM CHLORIDE 0.9% 1,000 ML IV SCH ×2 (05:54→21:05)
[2016-07-12 06:19] LABS: Glucose,Whole Blood 121 mg/dL (75-99)
[2016-07-12] MEDS: INSULIN LISPRO (humaLOG) 300 UNIT/3 ML VIAL SQ SCH ×4 (06:23→21:09)
[2016-07-12 06:25] LABS: Basophils % (A) 0 %; CH 29.1; Eosinophils # (A) 0.1 k/uL (0-0.7); Eosinophils % (A) 2 %; HCT 34.3 % (34.0-46.0); HDW 2.55; HGB 10.8 gm/dL (11.4-16.0); Luc # (Auto) 0.22; Luc % (Auto) 3; Lymphocytes # (A) 1.2 k/uL (1.0-4.8); Lymphocytes % (A) 15 %; MCH 28.8 pg (25.0-35.0); MCHC 31.6 g/dL (31.0-37.0); MCV 91.3 fL (80.0-100.0); Mean Platelet Volume 9.2; Monocytes # (A) 0.5 k/uL (0-1.0); Monocytes % (A) 6 %; Neutrophils # (A) 5.9 k/uL (1.3-7.7); Neutrophils % (A) 75 %; RBC 3.76 m/uL (3.80-5.40); RDW 13.1 % (11.5-15.5); WBC 7.9 k/uL (3.8-10.6); WBC (Perox) 8.62
[2016-07-12 06:33] LABS: Calcium 9.2 mg/dL (8.4-10.2); Potassium 3.9 mmol/L (3.5-5.1)
[2016-07-12] MEDS: FUROSEMIDE 10 MG/ML 4 ML VIAL IV SCH ×2 (08:40→21:06)
[2016-07-12] MEDS: METOPROLOL TARTRATE 50 MG TAB PO SCH ×2 (08:41→21:06)
[2016-07-12] MEDS: LOSARTAN 25 MG TAB PO SCH (08:41)
[2016-07-12 11:39] LABS: Glucose,Whole Blood 221 mg/dL (75-99)
--- NOTE | 2016-07-12 11:59 | P.PN ---
Subjective Principal diagnosis: Acute left pleural effusion and congestive heart failure This is an 80-year-old female with history of multiple medical problems including diabetes, hypertension, presented to the ER yesterday with a few days ' history of shortness of breath and increased swelling in her lower extremities. Chest x-ray showed congestive heart failure and good sized left- sided pleural effusion. This was confirmed on the CT of the chest and on ultrasound. The effusion is most likely secondary to congestive heart failure, however the possibility of parapneumonic effusion or malignant pleural effusion is not entirely ruled out. Considering the abnormal chest x-ray and the presentation, I was asked to see this patient on consultation. Patient is not a great historian, but family at bedside were answering most of my questions. Patient denies any headaches no blurred vision no dizziness no chest pain no nausea no vomiting no abdominal pain no melena and no hematemesis. Patient was reevaluated today on 07/12/2016, doing a bit better, ultrasound of the chest was reviewed and there is a good sized left-sided pleural effusion which I plan to drain hopefully today. Objective - Vital Signs Vital signs: Vital Signs Temp 97.2 F L 07/12/16 11:55 Pulse 91 07/12/16 11:55 Resp 18 07/12/16 11:55 BP 139/77 07/12/16 11:55 Pulse Ox 95 07/12/16 11:55 Intake & Output 07/11/16 07/12/16 07/12/16 18:59 06:59 18:59 Intake Total 240 236 Output Total 900 Balance -660 236 Weight 80.1 kg Intake: Intake, IV Titration 240 Amount Sodium Chloride 0.9% 1, 240 000 ml @ 20 mls/hr IV . Q24H [facility] Rx#:[id number] Oral 236 Output: Urine 900 Other: Voiding Method Toilet Toilet Toilet # Voids 1 - Exam Physical Exam: Revealed an 80-year-old female in no distress HEENT:[Neck is supple.] [No neck masses.] [No thyromegaly.] [No JVD.] Chest: [Diminished breath sounds and dullness at the left base otherwise unremarkable.] Cardiac Exam: [Normal S1 and S2, no S3 gallop, no murmur.] Abdomen: [Soft, nontender, no megaly, no rebound, no guarding, normal bowel sounds.] Extremities: [No clubbing, no edema, no cyanosis.] Neurological Exam: [Patient is confused but no focal neurologic deficit otherwise.] - Labs CBC & Chem 7: 07/12/16 05:44 07/12/16 05:44 Labs: Abnormal Lab Results - Last 24 Hours (Table) 07/11/16 07/11/16 07/12/16 Range/Units 16:35 20:27 05:44 RBC 3.76 L (3.80-5.40) m/uL Hgb 10.8 L (11.4-16.0) gm/dL Sodium (137-145) mmol/L Chloride (98-107) mmol/L BUN (7-17) mg/dL Creatinine (0.52-1.04) mg/dL Glucose (74-99) mg/dL POC Glucose (mg/dL) 172 H 169 H (75-99) mg/dL 07/12/16 07/12/16 07/12/16 Range/Units 05:44 06:12 11:37 RBC (3.80-5.40) m/uL Hgb (11.4-16.0) gm/dL Sodium 135 L (137-145) mmol/L Chloride 97 L (98-107) mmol/L BUN 36 H (7-17) mg/dL Creatinine 1.61 H (0.52-1.04) mg/dL Glucose 118 H (74-99) mg/dL POC Glucose (mg/dL) 121 H 221 H (75-99) mg/dL Microbiology - Last 24 Hours (Table) 07/10/16 23:49 Blood Culture - Preliminary Blood No Growth after 24 hours Assessment and Plan Plan: Impression: 1 Shortness of breath secondary to left pleural effusion which is most likely cardiac in nature and secondary to congestive heart failure unless proven otherwise. I plan to perform thoracentesis on the patient today, and she is agreeable to proceed knowing the risks and benefits of the procedure. 2 moderate pulmonary hypertension as noted on the echocardiogram 3 chronic atrial fibrillation as noted on her monitor upon presentation, patient was placed on eliquis,, beta blockers, diuretics, pallavi inhibitors, plan to do thoracentesis today on the left pleural effusion. Time with Patient: Less than 30
--- NOTE | 2016-07-12 12:31 | P.PN ---
Subjective Principal diagnosis: Shortness of breath This is a pleasant 80-year-old female with a history of diabetes and hypertension. She presented to the emergency department with complaints of moderate to severe exertional shortness of breath that came on suddenly as well as lower extremity edema. EKG showed atrial fibrillation with rapid ventricular response as well as frequent PVCs. Her d-dimer was slightly elevated and computed tomography scan of the chest was negative for PE. It did reveal a significant left-sided pleural effusion. Chest x-ray showed CHF with left sided pleural effusion and her BNP was elevated. Echocardiogram showed an ejection fraction of 50-55%. She does have a history of GI bleed with aspirin in the past. Patient's heart rate is much better controlled today. She does continue to have PVCs, bigeminal at times. Ultrasound of the chest did reveal a left-sided pleural effusion and was marked for thoracentesis which is scheduled to be done today. Patient continues to be in atrial fibrillation, heart rate in the 70s today. Objective - Vital Signs Vital signs: Vital Signs Temp 97.2 F L 07/12/16 11:55 Pulse 91 07/12/16 11:55 Resp 18 07/12/16 11:55 BP 139/77 07/12/16 11:55 Pulse Ox 95 07/12/16 11:55 Intake & Output 07/11/16 07/12/16 07/12/16 18:59 06:59 18:59 Intake Total 240 236 Output Total 900 Balance -660 236 Weight 80.1 kg Intake: Intake, IV Titration 240 Amount Sodium Chloride 0.9% 1, 240 000 ml @ 20 mls/hr IV . Q24H [facility] Rx#:[id number] Oral 236 Output: Urine 900 Other: Voiding Method Toilet Toilet Toilet # Voids 1 - Exam PHYSICAL EXAMINATION: HEENT: Head is atraumatic, normocephalic. Pupils equal, round. Neck is supple. There is no elevated jugular venous pressure. HEART EXAMINATION: Heart sounds irregularly irregular, S1 and S2 normal. No murmur or gallop heard. CHEST EXAMINATION: Lungs reveal diminished air entry to left. No chest wall tenderness is noted on palpation or with deep breathing. ABDOMEN: Soft, nontender. Bowel sounds are heard. No organomegaly noted. EXTREMITIES: 2+ peripheral pulses with evidence of trace peripheral edema and no calf tenderness noted. NEUROLOGIC patient is awake, alert and oriented x3. . - Labs CBC & Chem 7: 07/12/16 05:44 07/12/16 05:44 Labs: Abnormal Lab Results - Last 24 Hours (Table) 07/11/16 07/11/16 07/12/16 Range/Units 16:35 20:27 05:44 RBC 3.76 L (3.80-5.40) m/uL Hgb 10.8 L (11.4-16.0) gm/dL Sodium (137-145) mmol/L Chloride (98-107) mmol/L BUN (7-17) mg/dL Creatinine (0.52-1.04) mg/dL Glucose (74-99) mg/dL POC Glucose (mg/dL) 172 H 169 H (75-99) mg/dL 07/12/16 07/12/16 07/12/16 Range/Units 05:44 06:12 11:37 RBC (3.80-5.40) m/uL Hgb (11.4-16.0) gm/dL Sodium 135 L (137-145) mmol/L Chloride 97 L (98-107) mmol/L BUN 36 H (7-17) mg/dL Creatinine 1.61 H (0.52-1.04) mg/dL Glucose 118 H (74-99) mg/dL POC Glucose (mg/dL) 121 H 221 H (75-99) mg/dL Microbiology - Last 24 Hours (Table) 07/10/16 23:49 Blood Culture - Preliminary Blood No Growth after 24 hours Assessment and Plan (1) Diastolic CHF, acute on chronic Status: Acute (2) Pulmonary HTN Status: Acute (3) Pleural effusion, left Status: Acute (4) Chronic a-fib Status: Acute (5) Diabetes Status: Acute (6) HTN (hypertension) Status: Acute Plan: From cardiology's perspective, we will recommend to continue current dose of IV Lasix. Patient is also scheduled today to undergo thoracentesis for the left sided pleural effusion. Once this was performed we will resume the patient's Eliquis. Check lytes BUN and creatinine in the morning. Creatinine today is 1.6, down from 1.7 yesterday. DNP note has been reviewed, I agree with a documented findings and plan of care. Patient was seen and examined.
[2016-07-12 14:09] LABS: Total Protein 6.9 g/dL (6.3-8.2)
--- NOTE | 2016-07-12 14:16 | XR ---
EXAMINATION TYPE: XR chest 1V portable DATE OF EXAM: 07/12/2016 2:09 PM COMPARISON: 07/11/2016 HISTORY: Left thoracentesis TECHNIQUE: Single frontal view of the chest is obtained. FINDINGS: Interval reduction in the amount of pleural fluid with a tiny left effusion persisting. Ca rdiomegaly, interstitial process and atherosclerotic change aorta. Small right effusion and basilar c onsolidation. Diffuse osteopenia and arthropathy of the shoulders. IMPRESSION: 1. Mild venous congestion and CHF with interval reduction in amount of pleural fluid postthoracentesi s. 2. No pneumothorax.
[2016-07-12 15:49] LABS: RBC, Body Fluid 6700 /uL
[2016-07-12 15:56] VITALS: BMI 35.6
[2016-07-12 16:27] LABS: Glucose,Whole Blood 173 mg/dL (75-99)
[2016-07-12 20:44] LABS: Glucose,Whole Blood 178 mg/dL (75-99)
[2016-07-12] MEDS: APIXABAN 2.5 MG TABLET PO SCH (21:08)
[2016-07-13 06:09] LABS: Glucose,Whole Blood 169 mg/dL (75-99)
[2016-07-13 06:28] LABS: Basophils % (A) 0 %; CH 29.3; CHCM 32.4; Eosinophils # (A) 0.2 k/uL (0-0.7); Eosinophils % (A) 2 %; HCT 31.2 % (34.0-46.0); HDW 2.57; HGB 10.4 gm/dL (11.4-16.0); Luc # (Auto) 0.25; Luc % (Auto) 3; Lymphocytes # (A) 1.3 k/uL (1.0-4.8); Lymphocytes % (A) 15 %; MCH 30.3 pg (25.0-35.0); MCHC 33.4 g/dL (31.0-37.0); MCV 90.8 fL (80.0-100.0); Monocytes # (A) 0.5 k/uL (0-1.0); Monocytes % (A) 6 %; Neutrophils # (A) 6.2 k/uL (1.3-7.7); Neutrophils % (A) 74 %; RBC 3.43 m/uL (3.80-5.40); RDW 13.2 % (11.5-15.5); WBC 8.4 k/uL (3.8-10.6); WBC (Perox) 9.29
[2016-07-13] MEDS: INSULIN LISPRO (humaLOG) 300 UNIT/3 ML VIAL SQ SCH ×2 (07:11→11:48)
[2016-07-13 08:16] LABS: Potassium 4.1 mmol/L (3.5-5.1)
--- NOTE | 2016-07-13 08:19 | PCN ---
DATE OF PROCEDURE: PROCEDURE PERFORMED: Left-sided thoracentesis. PREOPERATIVE DIAGNOSIS: Left pleural effusion. POSTOPERATIVE DIAGNOSIS: Left pleural effusion. Anesthesia used: 4 mL of 1% lidocaine. PROCEDURE: Patient was placed in the sitting upright position. The area below the left scapula was prepared in a sterile fashion and drapes were applied. The area of the fluid was earlier localized by ultrasound guidance. At the marking of the pleural space by an global position system technician, the area was localized with 3 to 4 mL of lidocaine, and I was able to insert a 26-gauge needle into the pleural space and fluid was localized via the needle. Then a standard thoracentesis catheter and needle were used. Both inserted into the pleural space and as the fluid was obtained, catheter was advanced out of the needle, and the needle was pulled out of the pleural space. Freely flowing fluid was removed. Roughly 1000 mL of slightly yellow fluid was removed uneventfully, and the fluid was sent for different diagnostic studies. The procedure was well tolerated and no evidence of any immediate complications.
[2016-07-13] MEDS: LOSARTAN 25 MG TAB PO SCH (08:54)
[2016-07-13] MEDS: APIXABAN 2.5 MG TABLET PO SCH (08:55)
[2016-07-13] MEDS: FUROSEMIDE 10 MG/ML 4 ML VIAL IV SCH (08:55)
[2016-07-13] MEDS: METOPROLOL TARTRATE 50 MG TAB PO SCH (08:55)
--- NOTE | 2016-07-13 09:15 | PN ---
DATE OF SERVICE: 07/12/2016 This is an 80-year-old who was admitted with CHF acute exacerbation also seen for left pleural effusion. Dr. Law is planning pleural aspiration today. Seen and evaluated the patient along with the nurse practitioner. Please refer to nurse practitioner notes and impression documented for further information.
[2016-07-13 11:46] LABS: Glucose,Whole Blood 311 mg/dL (75-99)
--- NOTE | 2016-07-13 13:38 | P.PN ---
Subjective Principal diagnosis: Shortness of breath This is a pleasant 80-year-old female with a history of diabetes and hypertension. She presented to the emergency department with complaints of moderate to severe exertional shortness of breath that came on suddenly as well as lower extremity edema. EKG showed atrial fibrillation with rapid ventricular response as well as frequent PVCs. Her d-dimer was slightly elevated and computed tomography scan of the chest was negative for PE. It did reveal a significant left-sided pleural effusion. Chest x-ray showed CHF with left sided pleural effusion and her BNP was elevated. Echocardiogram showed an ejection fraction of 50-55%. She does have a history of GI bleed with aspirin in the past. Patient's heart rate is much better controlled today. She does continue to have PVCs, bigeminal at times. Patient underwent a thoracentesis yesterday, roughly 1000 ms of slightly yellow fluid was removed uneventfully and sent for cytology. Creatinine 2.0 today, up from 1.6 yesterday. Patient feels significantly better overall today. Denies any shortness of breath, no chest discomfort, no dizziness or lightheadedness. Objective - Vital Signs Vital signs: Vital Signs Temp 96.9 F L 07/13/16 08:00 Pulse 67 07/13/16 08:00 Resp 18 07/13/16 08:00 BP 119/70 07/13/16 08:00 Pulse Ox 97 07/13/16 11:34 Intake & Output 07/12/16 07/13/16 07/13/16 18:59 06:59 18:59 Intake Total 436 100 Balance 436 100 Weight 80.1 kg 78.5 kg Intake: Oral 436 100 Other: Voiding Method Toilet Toilet Toilet # Voids 1 1 - Exam PHYSICAL EXAMINATION: HEENT: Head is atraumatic, normocephalic. Pupils equal, round. Neck is supple. There is no elevated jugular venous pressure. HEART EXAMINATION: Heart sounds irregularly irregular, S1 and S2 normal. No murmur or gallop heard. CHEST EXAMINATION: Lungs reveal improvement in air entry bilaterally. ABDOMEN: Soft, nontender. Bowel sounds are heard. No organomegaly noted. EXTREMITIES: 2+ peripheral pulses with evidence of trace peripheral edema and no calf tenderness noted. NEUROLOGIC patient is awake, alert and oriented x3. . - Labs CBC & Chem 7: 07/13/16 06:01 07/13/16 05:57 Labs: Abnormal Lab Results - Last 24 Hours (Table) 07/12/16 07/12/16 07/13/16 Range/Units 16:26 20:43 05:57 RBC (3.80-5.40) m/uL Hgb (11.4-16.0) gm/dL Hct (34.0-46.0) % Sodium 136 L (137-145) mmol/L BUN 47 H (7-17) mg/dL Creatinine 2.00 H (0.52-1.04) mg/dL Glucose 165 H (74-99) mg/dL POC Glucose (mg/dL) 173 H 178 H (75-99) mg/dL 07/13/16 07/13/16 07/13/16 Range/Units 06:01 06:06 11:44 RBC 3.43 L (3.80-5.40) m/uL Hgb 10.4 L (11.4-16.0) gm/dL Hct 31.2 L (34.0-46.0) % Sodium (137-145) mmol/L BUN (7-17) mg/dL Creatinine (0.52-1.04) mg/dL Glucose (74-99) mg/dL POC Glucose (mg/dL) 169 H 311 H (75-99) mg/dL Microbiology - Last 24 Hours (Table) 07/12/16 13:30 Gram Stain - Preliminary Pleural Fluid Body Fluid Culture - Preliminary 07/10/16 23:49 Blood Culture - Preliminary Blood No Growth after 48 hours 07/12/16 13:30 Anaerobic Culture - Preliminary Pleural Fluid Assessment and Plan (1) Diastolic CHF, acute on chronic Status: Acute (2) Pulmonary HTN Status: Acute (3) Pleural effusion, left Status: Acute (4) Chronic a-fib Status: Acute (5) Diabetes Status: Acute (6) HTN (hypertension) Status: Acute Plan: From cardiology's perspective, discontinue IV Lasix and initiate oral diuretics. From cardiology's perspective she may be able to be discharged once she is cleared by pulmonary and her primary doctor. Make her a follow-up appointment to see Dr. Manrique in the office post discharge. DNP note has been reviewed, I agree with a documented findings and plan of care. Patient was seen and examined.
[2016-07-13 13:53] VITALS: BP 117/77; PULSE 61; TEMP 97.1
--- NOTE | 2016-07-13 14:41 | P.PN ---
Subjective Principal diagnosis: Acute left pleural effusion and congestive heart failure This is an 80-year-old female with history of multiple medical problems including diabetes, hypertension, presented to the ER yesterday with a few days ' history of shortness of breath and increased swelling in her lower extremities. Chest x-ray showed congestive heart failure and good sized left- sided pleural effusion. This was confirmed on the CT of the chest and on ultrasound. The effusion is most likely secondary to congestive heart failure, however the possibility of parapneumonic effusion or malignant pleural effusion is not entirely ruled out. Considering the abnormal chest x-ray and the presentation, I was asked to see this patient on consultation. Patient is not a great historian, but family at bedside were answering most of my questions. Patient denies any headaches no blurred vision no dizziness no chest pain no nausea no vomiting no abdominal pain no melena and no hematemesis. Patient was reevaluated today on 07/12/2016, doing a bit better, ultrasound of the chest was reviewed and there is a good sized left-sided pleural effusion which I plan to drain hopefully today. Reevaluated today on 07/13/2016, feeling much better, breathing a lot easier, final report on the pleural effusion is pending. Differential on the pleural effusion showed mostly mononuclear WBCs. And few mesothelial cells. Not clear yet whether the fluid is exudative or transudative in nature. Objective - Vital Signs Vital signs: Vital Signs Temp 97.1 F L 07/13/16 12:00 Pulse 61 07/13/16 12:00 Resp 18 07/13/16 12:00 BP 117/77 07/13/16 12:00 Pulse Ox 95 07/13/16 12:00 Intake & Output 07/12/16 07/13/16 07/13/16 18:59 06:59 18:59 Intake Total 436 100 Balance 436 100 Weight 80.1 kg 78.5 kg Intake: Oral 436 100 Other: Voiding Method Toilet Toilet Toilet # Voids 1 1 - Exam Physical Exam: Revealed an 80-year-old female in no distress HEENT:[Neck is supple.] [No neck masses.] [No thyromegaly.] [No JVD.] Chest: [Good breath sounds bilaterally no crackles or rhonchi or wheezes.] Cardiac Exam: [Normal S1 and S2, no S3 gallop, no murmur.] Abdomen: [Soft, nontender, no megaly, no rebound, no guarding, normal bowel sounds.] Extremities: [No clubbing, no edema, no cyanosis.] Neurological Exam: [Patient is confused but no focal neurologic deficit otherwise.] - Labs CBC & Chem 7: 07/13/16 06:01 07/13/16 05:57 Labs: Abnormal Lab Results - Last 24 Hours (Table) 07/12/16 07/12/16 07/13/16 Range/Units 16:26 20:43 05:57 RBC (3.80-5.40) m/uL Hgb (11.4-16.0) gm/dL Hct (34.0-46.0) % Sodium 136 L (137-145) mmol/L BUN 47 H (7-17) mg/dL Creatinine 2.00 H (0.52-1.04) mg/dL Glucose 165 H (74-99) mg/dL POC Glucose (mg/dL) 173 H 178 H (75-99) mg/dL 07/13/16 07/13/16 07/13/16 Range/Units 06:01 06:06 11:44 RBC 3.43 L (3.80-5.40) m/uL Hgb 10.4 L (11.4-16.0) gm/dL Hct 31.2 L (34.0-46.0) % Sodium (137-145) mmol/L BUN (7-17) mg/dL Creatinine (0.52-1.04) mg/dL Glucose (74-99) mg/dL POC Glucose (mg/dL) 169 H 311 H (75-99) mg/dL Microbiology - Last 24 Hours (Table) 07/12/16 13:30 Gram Stain - Preliminary Pleural Fluid Body Fluid Culture - Preliminary 07/10/16 23:49 Blood Culture - Preliminary Blood No Growth after 48 hours 07/12/16 13:30 Anaerobic Culture - Preliminary Pleural Fluid Assessment and Plan Plan: Impression: 1 Shortness of breath secondary to left pleural effusion which is most likely cardiac in nature and secondary to congestive heart failure unless proven otherwise. Status post thoracentesis in 1000 mL of fluid was obtained from the left pleural space results of which are pending. 2 moderate pulmonary hypertension as noted on the echocardiogram 3 chronic atrial fibrillation as noted on her monitor upon presentation, patient was placed on eliquis,, beta blockers, diuretics, pallavi inhibitors, results of the pleural effusion are pending. Time with Patient: Less than 30
[2016-07-13 15:44] LABS: Glucose,Whole Blood 199 mg/dL (75-99)
[2016-07-13] MEDS ORDERED: FUROSEMIDE 40 MG TAB PO SCH (16:00)
--- NOTE | 2016-07-13 16:43 | P.PN ---
Subjective Date of service 07/12/2016. Personal being dictated for Dr. Corral. Interval history: This is an 80-year-old female admitted with acute congestive heart failure, large left-sided pleural effusion and multiple other medical issues. Underwent left-sided thoracentesis with 1 L of diet yellow pleural fluid drained. Tolerated procedure well. Cytology pending. Breathing improved . Telemetry Atrial fibrillation, flutter with controlled ventricular rate. Denies chest pain, palpitations or increasing shortness of breath. Objective - Vital Signs Vital signs: Vital Signs Temp 97.4 F L 07/12/16 23:25 Pulse 64 07/12/16 23:25 Resp 18 07/12/16 23:25 BP 115/68 07/12/16 23:25 Pulse Ox 97 07/12/16 23:25 Intake & Output 07/12/16 07/12/16 07/13/16 06:59 18:59 06:59 Intake Total 240 436 Output Total 900 Balance -660 436 Weight 80.1 kg 80.1 kg Intake: Intake, IV Titration 240 Amount Sodium Chloride 0.9% 1, 240 000 ml @ 20 mls/hr IV . Q24H [facility] Rx#:[id number] Oral 436 Output: Urine 900 Other: Voiding Method Toilet Toilet Toilet # Voids 1 1 - Exam PHYSICAL EXAM: VITAL SIGNS: As above GENERAL: [Sitting up in bed, no acute distress] HEENT: [Pupils equal conjunctiva normal.] NECK: [Supple, no JVD] RESPIRATORY EFFORT:[Normal] LUNGS: [Diminished, no crackles wheezing or rhonchi] CARDIOVASCULAR[irregular, no murmur rub or gallop, mild edema.] GI: [Abdomen soft, nontender, positive bowel sounds.] PSYCH: [Alert and oriented -3, mood and affect normal.] NEURO: [No focal deficits, moves all extremities, strength and sensation grossly intact] - Labs CBC & Chem 7: 07/13/16 06:01 07/13/16 05:57 Labs: Abnormal Lab Results - Last 24 Hours (Table) 07/12/16 07/12/16 07/12/16 Range/Units 05:44 05:44 06:12 RBC 3.76 L (3.80-5.40) m/uL Hgb 10.8 L (11.4-16.0) gm/dL Sodium 135 L (137-145) mmol/L Chloride 97 L (98-107) mmol/L BUN 36 H (7-17) mg/dL Creatinine 1.61 H (0.52-1.04) mg/dL Glucose 118 H (74-99) mg/dL POC Glucose (mg/dL) 121 H (75-99) mg/dL 07/12/16 07/12/16 07/12/16 Range/Units 11:37 16:26 20:43 RBC (3.80-5.40) m/uL Hgb (11.4-16.0) gm/dL Sodium (137-145) mmol/L Chloride (98-107) mmol/L BUN (7-17) mg/dL Creatinine (0.52-1.04) mg/dL Glucose (74-99) mg/dL POC Glucose (mg/dL) 221 H 173 H 178 H (75-99) mg/dL Microbiology - Last 24 Hours (Table) 07/12/16 13:30 Anaerobic Culture - Preliminary Pleural Fluid 07/12/16 13:30 Body Fluid Culture - Preliminary Pleural Fluid 07/10/16 23:49 Blood Culture - Preliminary Blood No Growth after 24 hours Assessment and Plan Plan: 1. Acute on chronic congestive heart failure exacerbation, diastolic dysfunction, EF 50-55%]. 2. [Left sided pleural effusion, status post left-sided thoracentesis]. 3. [Possible left lower lobe pneumonia]. 4. [Diabetes mellitus type 2, hemoglobin A1c 6.3]. 5. [Acute renal failure with possible chronic kidney disease, stage III]. 6. [Hyponatremia]. 7. [Increased d-dimer without evidence of PE]. 8. PVCs 9. Essential hypertension 10. Mediastinal lymphadenopathy per CT. 11. Moderate pulmonary hypertension per echocardiogram 12. Chronic atrial fibrillation, anticoagulated on Eliquis. Plan: Continue on current medication regime , Lasix,monitoring and symptomatic treatment. Maintain diuresing with Lasix, possibly convert to oral in a.m. Close monitoring of renal function and electrolytes with repeat labs ordered for a.m. Pleural Cytology pending. Close monitoring of Accu-Cheks. Follow closely with both cardiology and pulmonary with further recommendations to follow. Patient and family updated on plan of care at bedside. Discharge planning in progress for tomorrow. The impression and plan of care has been dictated as directed. : I performed a H&P examination of this patient and discussed the same with the dictator. I agree with the dictator's note. Any additional findings/opinions/ etc. will be noted.
[2016-07-13] MEDS ORDERED: INSULIN LISPRO (humaLOG) 300 UNIT/3 ML VIAL SQ SCH (17:30)
--- NOTE | 2016-07-14 14:45 | DS ---
DATE OF ADMISSION: 07/10/2016 DATE OF DISCHARGE: 07/13/2016 FINAL DIAGNOSIS(ES): 1. Congestive heart failure acute exacerbation with acute on chronic diastolic dysfunction, ejection 50% to 55%. 2. Left-sided pleural effusion and possible left lower pneumonia and status post thoracocentesis. 3. Diabetes mellitus type 2. 4. Increased creatinine with possible chronic kidney disease, stage III. 5. Hyponatremia. 6. D. dimer without any evidence of pulmonary embolus. 7. Left pleural effusion per the CAT scan. 8. Premature ventricular contractions. 9. Hypertension. 10. History of cholecystectomy. 11. Mediastinal lymphadenopathy on the CAT scan. 12. Pneumonia unlikely. 13. FULL CODE. DISCHARGE DISPOSITION: The patient will be discharged in stable condition with guarded prognosis. HISTORY OF PRESENT ILLNESS: This 80 -year-old woman with past medical history of multiple medical problems admitted with congestive heart failure acute exacerbation, the patient also had pleural effusion and multiple complications as mentioned earlier. Dr. Law performed a pleural aspiration. The patient improved significantly. On examination, vital signs stable. CARDIOVASCULAR: S1, S2. Abdomen: Soft. CENTRAL NERVOUS SYSTEM: No focal deficits. Dr. Law recommended the patient be discharged. Cardiology . DISCHARGE DISPOSITION: Total time taken 35 minutes. DISCHARGE ADVICE AND MEDICATIONS: 1. Diet is cardiac. 2. Activity limited until follow-up. 3. Follow-up with Dr. Bee in 2 to 3 days. 4. Discharge medications are as before: Albuterol 2 puffs q.i.d. 5. Eliquis 2.5 mg b.i.d. 6. Symbicort 160/4.5 2 puffs b.i.d. 7. Lasix 40 mg daily. 8. Insulin as before. 9. Apidra as before. 10. Cozaar 25 mg p.o. daily. 11. Lopressor 25 mg p.o. b.i.d. 12. CBC BMP in the outpatient setting. 13. Close monitoring. Once again, the patient will be discharged in stable condition with guarded prognosis. Humalog 5 units a.c. t.i.d. and Apidra 30 units q.h.s. p.r.n. Continue the home dose and Accu-Cheks before meals and at bedtime. Closely follow with Dr. Bee. [facility]
== END 2016-07-13 19:35 | disposition home or self-care (01) | DRG 291 ==
LOC: EC 22:54 → 6SEL 07-10 00:33
PROVIDERS: ADMIT Hospitalist; ATTEND Hospitalist
PROC: 0W9B3ZX Drainage of Left Pleural Cavity, Percutaneous Approach, Diagnostic (ICD-10-PCS; principal; 2016-07-12)
DX: I13.0 Hypertensive heart and chronic kidney disease with heart failure and stage 1 through stage 4 chronic kidney disease, or unspecified chronic kidney disease (principal); J96.01 Acute respiratory failure with hypoxia; J18.9 Pneumonia, unspecified organism; N17.9 Acute kidney failure, unspecified; J90 Pleural effusion, not elsewhere classified; I48.1 Persistent atrial fibrillation; I27.2 Other secondary pulmonary hypertension; N18.3 Chronic kidney disease, stage 3 (moderate); I50.33 Acute on chronic diastolic (congestive) heart failure; E87.1 Hypo-osmolality and hyponatremia; E11.9 Type 2 diabetes mellitus without complications; R59.0 Localized enlarged lymph nodes; I49.3 Ventricular premature depolarization; Z88.0 Allergy status to penicillin; Z90.49 Acquired absence of other specified parts of digestive tract; Z91.018 Allergy to other foods; Z79.4 Long term (current) use of insulin; Z79.899 Other long term (current) drug therapy
CPT/HCPCS: 36415; 71010; 71020; 71275; 76604; 80048; 80053; 82550; 82553; 82945; 83036; 83615; 83735; 83880; 84155; 84157; 84484; 85025; 85379; 85610; 85730; 87040; 87070; 87075; 87205; 88108; 88305; 89050; 93005; 93306; 93970; 94760; 96365; 96366; 96368; 96376; 99285

== ENCOUNTER 2016-07-17 15:20 | Inpatient (IN) | payer MEDICARE ==
[2016-07-17] MEDS ORDERED: SODIUM CHLORIDE 0.9% 1,000 ML IV STA (16:44)
--- NOTE | 2016-07-17 16:52 | ED ---
General Adult HPI - General Chief complaint: Upper Respiratory Infection Stated complaint: SOB Time Seen by Provider: 07/17/16 16:09 Source: patient, family Mode of arrival: wheelchair Limitations: no limitations - History of Present Illness Initial comments: The patient was in the hospital pain recently discharged about 5 days ago she had a shortness of breath she been coughing since she was discharged denies any chest pain has shortness of breath denies any headache no neck Neck stiffness no abdominal pain no frequency urgency dysuria She did complain about a palpitation. No fever no chills no signs of any TIA or CVA vision has seen Dr. Perea this morning and now Dr. Perea did speak with the Dr. Dr. Ellis Perea his son noticed indicated that patient has a diagnosis of congestive heart failure PE and new-onset atrial fibrillation - Related Data Home Medications Medication Instructions Recorded Confirmed Insulin Glulisine [Apidra] See Protocol SQ AC-BID 07/09/16 07/17/16 Losartan [Cozaar] 25 mg PO DAILY 07/09/16 07/17/16 Albuterol Inhaler [Ventolin Hfa 2 puff INHALATION RT-QID 07/17/16 07/17/16 Inhaler] Budesonide-Formot 160-4.5 Mcg 2 puff INHALATION RT-BID 07/17/16 07/17/16 [Symbicort 160-4.5 Mcg Inhaler] Previous Rx's Medication Instructions Recorded Apixaban [Eliquis] 2.5 mg PO BID #60 tablet 07/13/16 Furosemide [Lasix] 40 mg PO DAILY #30 tab 07/13/16 Insulin Glargine,Hum.rec.anlog 30 unit SQ HS #0 07/13/16 [Lantus Solostar] Metoprolol Tartrate [Lopressor] 25 mg PO BID #60 tab 07/13/16 Allergies Allergy/AdvReac Type Severity Reaction Status Date / Time Penicillins Allergy Rash/Hives Verified 07/17/16 16:20 orange juice AdvReac Nausea Verified 07/17/16 16:20 Review of Systems ROS Statement: Those systems with pertinent positive or pertinent negative responses have been documented in the HPI. ROS Other: All systems not noted in ROS Statement are negative. Past Medical History Past Medical History: Atrial Fibrillation, Diabetes Mellitus, Hypertension, Pulmonary Embolus (PE) History of Any Multi-Drug Resistant Organisms: None Reported Past Surgical History: Section, Cholecystectomy Past Anesthesia/Blood Transfusion Reactions: No Reported Reaction Past Psychological History: No Psychological Hx Reported Smoking Status: Never smoker Past Alcohol Use History: None Reported Past Drug Use History: None Reported General Exam - General Exam Comments Initial Comments: General: The patient is awake and alert, does look pale and tired Skin: Skin is warm and dry and no rashes or lesions are noted. Eye: Pupils are equal, round and reactive to light, extra-ocular movements are intact; there is normal conjunctiva bilaterally. Ears, nose, mouth and throat: There are moist mucous membranes and no oral lesions. Neck: The neck is supple, there is no tenderness Cardiovascular: Noticed him a defibrillation Respiratory: To auscultation bilateral, it is crackles at the bases bilaterally Gastrointestinal: Soft, non-distended, non-tender abdomen without masses or organomegaly noted. There is no rebound or guarding present. Bowel sounds are unremarkable. Back: There is no tenderness to palpation in the midline. There is no obvious deformity. Musculoskeletal: Normal ROM, no tenderness, There is no pedal edema. There is no calf tenderness or swelling. No cords were appreciated. Neurological: CN II-XII intact, Cranial nerves III through XII are intact. There are no obvious motor or sensory deficits. Coordination appears grossly intact. Speech is normal. Psychiatric: Cooperative, appropriate mood & affect, normal judgment. Limitations: no limitations Course Vital Signs 07/17/16 07/17/16 15:45 16:51 Temperature 97.7 F Pulse Rate 61 Respiratory 20 18 Rate Blood Pressure 129/60 O2 Sat by Pulse 96 Oximetry EKG Findings - EKG Comments: EKG Findings:: EKG is a defibrillation with a premature ventricular apartment conduction complexes ventricular rate 7070 QRS duration is 68 QT/QTc is 362/409 review of this EKG none social any ST elevation or ST depression Medical Decision Making - Lab Data Result diagrams: 07/17/16 16:24 07/17/16 16:24 Lab Results 07/17/16 07/17/16 07/17/16 Range/Units 16:24 16:24 16:24 WBC 8.7 (3.8-10.6) k/uL RBC 4.01 (3.80-5.40) m/uL Hgb 12.1 (11.4-16.0) gm/dL Hct 35.7 (34.0-46.0) % MCV 89.0 (80.0-100.0) fL MCH 30.1 (25.0-35.0) pg MCHC 33.8 (31.0-37.0) g/dL RDW 13.3 (11.5-15.5) % Plt Count 227 (150-450) k/uL Neutrophils % 75 % Lymphocytes % 14 % Monocytes % 6 % Eosinophils % 3 % Basophils % 1 % Neutrophils # 6.6 (1.3-7.7) k/uL Lymphocytes # 1.3 (1.0-4.8) k/uL Monocytes # 0.5 (0-1.0) k/uL Eosinophils # 0.2 (0-0.7) k/uL Basophils # 0.1 (0-0.2) k/uL PT (9.0-12.0) sec INR (<1.1) APTT (22.0-30.0) sec D-Dimer (<0.60) mg/L FEU Sodium 136 L (137-145) mmol/L Potassium 3.7 (3.5-5.1) mmol/L Chloride 92 L (98-107) mmol/L Carbon Dioxide 32 H (22-30) mmol/L Anion Gap 12 mmol/L BUN 50 H (7-17) mg/dL Creatinine 1.69 H (0.52-1.04) mg/dL Est GFR (MDRD) Af Amer 35 (>60 ml/min/1.73 sqM) Est GFR (MDRD) Non-Af 29 (>60 ml/min/1.73 sqM) Glucose 169 H (74-99) mg/dL Calcium 9.2 (8.4-10.2) mg/dL Total Bilirubin 0.4 (0.2-1.3) mg/dL AST 38 H (14-36) U/L ALT 44 (9-52) U/L Alkaline Phosphatase 111 (38-126) U/L Total Creatine Kinase 73 (30-135) U/L NT-Pro-B Natriuret Pep pg/mL Total Protein 7.2 (6.3-8.2) g/dL Albumin 3.9 (3.5-5.0) g/dL 07/17/16 07/17/16 Range/Units 16:24 16:24 WBC (3.8-10.6) k/uL RBC (3.80-5.40) m/uL Hgb (11.4-16.0) gm/dL Hct (34.0-46.0) % MCV (80.0-100.0) fL MCH (25.0-35.0) pg MCHC (31.0-37.0) g/dL RDW (11.5-15.5) % Plt Count (150-450) k/uL Neutrophils % % Lymphocytes % % Monocytes % % Eosinophils % % Basophils % % Neutrophils # (1.3-7.7) k/uL Lymphocytes # (1.0-4.8) k/uL Monocytes # (0-1.0) k/uL Eosinophils # (0-0.7) k/uL Basophils # (0-0.2) k/uL PT 10.4 (9.0-12.0) sec INR 1.0 (<1.1) APTT 23.3 (22.0-30.0) sec D-Dimer 2.02 H (<0.60) mg/L FEU Sodium (137-145) mmol/L Potassium (3.5-5.1) mmol/L Chloride (98-107) mmol/L Carbon Dioxide (22-30) mmol/L Anion Gap mmol/L BUN (7-17) mg/dL Creatinine (0.52-1.04) mg/dL Est GFR (MDRD) Af Amer (>60 ml/min/1.73 sqM) Est GFR (MDRD) Non-Af (>60 ml/min/1.73 sqM) Glucose (74-99) mg/dL Calcium (8.4-10.2) mg/dL Total Bilirubin (0.2-1.3) mg/dL AST (14-36) U/L ALT (9-52) U/L Alkaline Phosphatase (38-126) U/L Total Creatine Kinase (30-135) U/L NT-Pro-B Natriuret Pep 3570 pg/mL Total Protein (6.3-8.2) g/dL Albumin (3.5-5.0) g/dL Critical Care Time Total Critical Care Time: 45 Critical Care Time: , She came in with the difficulty breathing Investigations were completed white count is normal d-dimer is quite elevated creatinine is 1.69 compressive metabolic panel is within normal range at this point x-ray confirms the pneumonia she was started on now she be started on a pneumonia treatment considering she has elevated d-dimer as well as creatinine she is not a candidate for PE study with the CT angiogram chest recently her L Aquinas was discontinued considering her bleeding problem over get her started on a Lovenox 0.75 mg/kg in order a VQ scan further evaluation of for pulmonary embolism Disposition Clinical Impression: Atrial fibrillation, new onset, Congestive heart failure, Pneumonia Disposition: ADMITTED IP TO THIS HOSP Referrals: Maritza Perea DO [Primary Care Provider] - 1-2 days
[2016-07-17 16:58] LABS: Basophils # (A) 0.1 k/uL (0-0.2); Basophils % (A) 1 %; CH 29.7; CHCM 33.5; Eosinophils # (A) 0.2 k/uL (0-0.7); Eosinophils % (A) 3 %; HCT 35.7 % (34.0-46.0); HDW 2.76; HGB 12.1 gm/dL (11.4-16.0); Luc # (Auto) 0.14; Luc % (Auto) 2; Lymphocytes # (A) 1.3 k/uL (1.0-4.8); Lymphocytes % (A) 14 %; MCH 30.1 pg (25.0-35.0); MCHC 33.8 g/dL (31.0-37.0); Mean Platelet Volume 10.3; Monocytes # (A) 0.5 k/uL (0-1.0); Monocytes % (A) 6 %; Neutrophils # (A) 6.6 k/uL (1.3-7.7); Neutrophils % (A) 75 %; RBC 4.01 m/uL (3.80-5.40); RDW 13.3 % (11.5-15.5); WBC 8.7 k/uL (3.8-10.6); WBC (Perox) 9.29
[2016-07-17 17:08] LABS: Potassium 3.7 mmol/L (3.5-5.1); Total Protein 7.2 g/dL (6.3-8.2)
[2016-07-17 17:09] LABS: Calcium 9.2 mg/dL (8.4-10.2); Total Bilirubin 0.4 mg/dL (0.2-1.3)
[2016-07-17 17:12] LABS: Partial Thromboplastin Time 23.3 sec (22.0-30.0); Prothrombin Time 10.4 sec (9.0-12.0)
--- NOTE | 2016-07-17 17:22 | XR ---
EXAMINATION TYPE: XR chest 2V DATE OF EXAM: 07/17/2016 5:12 PM COMPARISON: 07/12/2016 HISTORY: Short of breath TECHNIQUE: Frontal and lateral views of the chest are obtained. FINDINGS: There is patchy pneumonic consolidation in the left lower lobe. Heart size is probably nor mal. Thoracic aorta is atheromatous. There are no hilar masses. There are chest leads. The bony thora x appears intact. IMPRESSION: There is increasing pleural fluid and consolidation in the left lower lobe compared to l ast exam. There is mild pulmonary congestion but no definite heart failure. There is improved aeratio n of the right lung compared to last exam.
[2016-07-17 17:28] LABS: Creatine Kinase 73 U/L (30-135)
[2016-07-17 17:39] LABS: Creatine Kinase MB 0.9 ng/mL (0.0-2.4); Troponin I <0.012 ng/mL (0.000-0.034)
[2016-07-17] MEDS ORDERED: NALOXONE 0.4 MG/ML 1 ML VIAL IV PRN (17:48)
[2016-07-17] MEDS ORDERED: MORPHINE SULFATE 4 MG/ML SYRINGE IV PRN (17:57)
[2016-07-17] MEDS ORDERED: ONDANSETRON 4 MG/2 ML VIAL IVP PRN (17:57)
[2016-07-17] MEDS ORDERED: ACETAMINOPHEN TAB 325 MG TAB PO PRN (17:57)
[2016-07-17] MEDS ORDERED: cefTRIAXone 2,000 MG in SODIUM CHLORIDE 0.9% 100 ML IVPB STA (18:02)
[2016-07-17] MEDS ORDERED: AZITHROMYCIN 500 MG in SODIUM CHLORIDE 0.9% 250 ML IVPB STA (18:02)
[2016-07-17] MEDS ORDERED: TEMAZEPAM 15 MG CAP PO PRN (19:48)
[2016-07-17] MEDS ORDERED: HYDROcodone/APAP 5-325MG 1 EACH TAB PO PRN (19:48)
[2016-07-17 19:51] LABS: Glucose,Whole Blood 148 mg/dL (75-99)
[2016-07-17] MEDS: SYMBICORT 160-4.5 MCG INHALER INHALATION SCH (20:25)
[2016-07-17] MEDS: ALBUTEROL NEBULIZED 2.5 MG/3 ML INHALATION SCH (20:25)
[2016-07-17] MEDS ORDERED: ENOXAPARIN 60 MG/0.6 ML SYRINGE SQ SCH (21:00)
[2016-07-17 21:32] LABS: Hemoglobin A1C 6.6 % (4.2-6.1)
[2016-07-17] MEDS: FUROSEMIDE 10 MG/ML 4 ML VIAL IV SCH (22:14)
[2016-07-17] MEDS: INSULIN GLARGINE 100 UNIT/ML 10 ML VIAL SQ SCH (22:15)
[2016-07-17] MEDS: INSULIN LISPRO (humaLOG) 300 UNIT/3 ML VIAL SQ SCH (22:16)
[2016-07-17] MEDS: METOPROLOL TARTRATE 25 MG TAB PO SCH (22:18)
[2016-07-17 23:48] LABS: Appearance,Urine Clear (Clear); Bilirubin,Urine Negative (Negative); Glucose,Urine (UA) Negative (Negative); Ketones,Urine Negative (Negative); Leukocyte Esterase,Urine Trace (Negative); Nitrite,Urine Negative (Negative); Particle Count 293; Protein,Urine Negative (Negative); RBC,Urine 1 /hpf (0-5); Specific Gravity,Urine 1.004 (1.001-1.035); Transitional Epi Cells,Urine <1 /hpf (0-1); UA Billing (MACRO vs. MICRO) MICRO; Urobilinogen,Urine <2.0 mg/dL (<2.0); WBC,Urine 5 /hpf (0-5)
[2016-07-18 06:13] LABS: Basophils # (A) 0.1 k/uL (0-0.2); Basophils % (A) 1 %; CH 29.5; Eosinophils # (A) 0.2 k/uL (0-0.7); Eosinophils % (A) 4 %; HCT 33.9 % (34.0-46.0); HDW 2.72; Luc # (Auto) 0.22; Luc % (Auto) 4; Lymphocytes # (A) 1.3 k/uL (1.0-4.8); Lymphocytes % (A) 21 %; MCH 29.2 pg (25.0-35.0); MCHC 32.5 g/dL (31.0-37.0); Mean Platelet Volume 9.8; Monocytes # (A) 0.5 k/uL (0-1.0); Monocytes % (A) 8 %; Neutrophils % (A) 64 %; RBC 3.76 m/uL (3.80-5.40); RDW 13.3 % (11.5-15.5); WBC 6.2 k/uL (3.8-10.6); WBC (Perox) 7.19
[2016-07-18 06:27] LABS: Glucose,Whole Blood 118 mg/dL (75-99)
[2016-07-18] MEDS: INSULIN LISPRO (humaLOG) 300 UNIT/3 ML VIAL SQ SCH ×4 (06:28→23:54)
[2016-07-18 06:33] LABS: Calcium 8.9 mg/dL (8.4-10.2); Potassium 3.6 mmol/L (3.5-5.1)
--- NOTE | 2016-07-18 07:40 | NM ---
EXAMINATION TYPE: NM pul vent and perfuse DATE OF EXAM: 07/17/2016 10:09 PM COMPARISON: Same day chest x-ray. CTA chest from one week earlier. HISTORY: Shortness of breath, new onset atrial fibrillation TECHNIQUE: Utilizing inhalation of 71.5 mCi Tc 99m DTPA aerosol and intravenous injection of 5.5 mCi of Tc 99m MAA, ventilation and perfusion images are acquired post injection in multiple projections. FINDINGS: Matching defects in the left lung correspond to pleural effusion. Small additional scattered matching defects are seen bilaterally. There is no evidence of mismatched defects. IMPRESSION: Low probability for pulmonary embolism.
--- NOTE | 2016-07-18 08:12 | HP ---
DATE OF ADMISSION: CHIEF COMPLAINT: Increasing pleural effusion on the left side. HISTORY OF PRESENT ILLNESS: This 80-year-old woman with past medical history of multiple medical problems including congestive heart failure history of atrial fibrillation, history of hypertension, history of pulmonary embolism, history of cholecystectomy, being followed by Dr. Perea in the outpatient setting recently admitted with congestive heart failure acute exacerbation as well as right pleural effusion. The patient is thought to have left pneumonia. The patient also apparently had parapneumonic effusion which was tapped during that time. The at that time showed predominant hemorrhage with RBC of 6700 and nuclear cells of 1775 and a few mesothelial cells were also seen. The pleural fluid cytology was also available at this time and showed inflammatory cells and malignant cells are not identified. The patient went to Dr. Perea's office and because of concerns of increasing pleural effusion Dr. Perea discussed case at length with me and the patient was sent to [facility] Emergency Room and the patient admitted subsequently. There is no history of any fever, rigors or chills. No history of headache, loss of consciousness. The patient has not had any worsening of shortness of breath, but bilateral leg edema was also noted. Of note, also chest CTA was done during the previous admission, which showed no CT evidence of pulmonary embolism but organizing left pleural effusion with left lobe or atelectasis also noted and bilateral alveolar ground-glass opacity was also noted with Cardiomegaly and multicompartment mediastinal adenopathy with paratracheal lymph nodes also noted as well. Enlarged left lymph node was also noted. Dr. Law has seen the patient during the last admission as well. The pleural fluid was thought to be most likely cardiac in nature. PAST MEDICAL HISTORY: History of congestive heart failure, as mentioned earlier, history of diabetes mellitus, hypertension, pulmonary embolism. Medications prior to admission include home medications are: 1. Lopressor 25 mg p.o. b.i.d. 2. Cozaar 25 mg p.o. daily. 3. Apidra a.c. b.i.d. 4. Lantus 30 units subcu daily. 5. Lasix 40 mg daily. 6. Symbicort 160/4.5, 2 puffs b.i.d. 7. Eliquis 2.5 mg b.i.d. 8. Ventolin HFA 2 puffs q.i.d. ALLERGIES: PENICILLIN FAMILY HISTORY: No history of heart disease or strokes in the family. SOCIAL HISTORY: History of smoking. No history of alcohol. REVIEW OF SYSTEMS: ENT: No diminished hearing. No diminished vision. CARDIOVASCULAR: As mentioned earlier. RESPIRATORY: As mentioned earlier. GI: No nausea. : No dysuria. NERVOUS SYSTEM: No numbness or weakness. ALLERGY/IMMUNOLOGY: No asthma or hayfever. MUSCULOSKELETAL: As mentioned earlier. HEMATOLOGY: No history of anemia. ENDOCRINE: History of diabetes. CONSTITUTIONAL: As mentioned earlier. DERMATOLOGY: Negative. RHEUMATOLOGY: Negative. PSYCHIATRY: As mentioned earlier. PHYSICAL EXAMINATION: Alert and oriented x3. Pulse 74, blood pressure 119/84, respirations 16, temperature 97.6. Pulse ox 98% on 2-L. HEENT: Conjunctivae normal. Oral mucosa moist. NECK: No jugular venous distention. No carotid bruit. No lymph node enlargement. CARDIOVASCULAR: S1 and S2, muffled. No S3, no S4. RESPIRATORY: Breath sounds diminished at the bases. Breath sounds are markedly diminished in the left side. Otherwise a few scattered rhonchi and crackles. ABDOMEN: Soft, nontender. No mass palpable. LEGS: No edema, no swelling. NERVOUS SYSTEM: Higher function as mentioned. Moves all four limbs. No focal motor deficits. LYMPHATIC: No lymphadenopathy in the neck, axillae or groin. SKIN: No ulcer, rash or bleeding. LABS; CBC within normal limits. Sodium 136, creatinine 1.69. The previous creatinine value was 2. ASSESSMENT: 1. Left pleural effusion, which is recurrent. Possibly secondary to congestive heart failure, rule out malignancy. 2. History of congestive heart failure with chronic diastolic dysfunction, ejection fraction 50% to 55%. 3. Lymphadenopathy in the previous CAT scan. 4. Diabetes mellitus type 2. 5. Increased creatinine with possible kidney disease, stage III. 6. Premature ventricular contractions. 7. Hypertension. 8. History of cholecystectomy. 9. Possible pneumonia of the lower lobes previously. 10. Increased random blood sugar. 11. Hyponatremia, possibly hypovolemic. 12. Increased d-dimer. RECOMMENDATIONS AND DISCUSSION: In this 80-year-old woman who presented with multiple complex medical issues, we will monitor the patient closely. Continue the current medications and symptomatic treatment. Exact etiology and pleural effusion undetermined at this time. Most likely due to congestive heart failure, but malignancy is a concern even though cytology is negative. I would recommend to continue to monitor and continue with the intravenous diuretics and I would also consult Dr. Chery and Cardiology also consulted. We will monitor blood sugars closely. Prognosis guarded because of multiple complex medical issues. Further recommendations to follow. Copy of dictation forwarded to Dr. Perea, who is the primary physician. [facility]OSPITALHoa
[2016-07-18] MEDS: ALBUTEROL NEBULIZED 2.5 MG/3 ML INHALATION SCH ×2 (08:42→16:04)
[2016-07-18] MEDS: SYMBICORT 160-4.5 MCG INHALER INHALATION SCH (08:43)
[2016-07-18] MEDS ORDERED: FUROSEMIDE 40 MG TAB PO SCH ×2 (09:00→16:00)
[2016-07-18] MEDS: LOSARTAN 25 MG TAB PO SCH (09:22)
[2016-07-18] MEDS: POTASSIUM CHLORIDE ER 20 MEQ TAB.ER PO SCH (09:22)
[2016-07-18] MEDS: FUROSEMIDE 10 MG/ML 4 ML VIAL IV SCH ×2 (09:23→20:20)
[2016-07-18] MEDS: METOPROLOL TARTRATE 25 MG TAB PO SCH ×2 (09:29→20:20)
[2016-07-18 10:44] VITALS: BMI 34.8
[2016-07-18 11:46] LABS: Glucose,Whole Blood 216 mg/dL (75-99)
--- NOTE | 2016-07-18 14:10 | P.CNPUL ---
History of Present Illness Consult date: 07/18/16 Requesting physician: Gm Carrasquillo Reason for consult: abnormal CXR/CT (Left pleural effusion) Chief complaint: None History of present illness: This is a very pleasant 80-year-old female patient who follows with Dr. Perea as her primary care physician. She has a history of diabetes mellitus hypertension and diastolic congestive heart failure. She has a preserved left ventricular systolic function with estimated ejection fraction between 50 and 55 %. She didn't have moderate pulmonary hypertension with an RVSP of 56 mmHg. She was recently here for a suspected parapneumonic effusion of the left lung and had undergone thoracentesis by Dr. Law. Cytology was negative for malignancy. She was subsequently discharged home and was seen by her PCP yesterday who performed a follow-up chest x-ray and noted continued left pleural effusion and she was directed back to the hospital. The patient herself had no symptoms. She denies any shortness of breath, cough or congestion. No chest pain, palpitations lightheadedness or dizziness. She is seen today in consultation on the selective care unit. She is awake and alert in no acute distress. She is maintaining good O2 saturations in the 90s on room air. No fever. No leukocytosis. Her chest x-ray does reveal some increased pleural effusion on the left lower lobe. There was improved aeration of the right lung compared to her chest x-ray prior to her discharge on 2016. She has been initiated on Lasix 40 mg IV every 12 hours. She is currently in a negative balance current creatinine 1.50. Review of Systems 14 point review of system was conducted. All negative other than as mentioned in HPI. Past Medical History Past Medical History: Atrial Fibrillation, Heart Failure, Diabetes Mellitus, Hypertension, Pneumonia Additional Past Medical History / Comment(s): MURMUR History of Any Multi-Drug Resistant Organisms: None Reported Past Surgical History: Section, Cholecystectomy Past Anesthesia/Blood Transfusion Reactions: No Reported Reaction Past Psychological History: No Psychological Hx Reported Additional Psychological History / Comment(s): PT IS INDEPENDANT, LIVES WITH SPOUSE IN SINGLE LEVEL HOME THAT HAS 2 STEPS TO GET INTO HOME. IS SIGNED UP FOR MEALS ON WHEELS. NO MEDICZL EQUIPMENT. NO PETS. PT USED TO WORK IN A FACTORY. Smoking Status: Never smoker Past Alcohol Use History: None Reported Past Drug Use History: None Reported - Past Family History Father Additional Family Medical History / Comment(s): IN HIS 20'S WAS ELECTROCUTED Mother Family Medical History: Cancer Additional Family Medical History / Comment(s): LEUKEMIA Medications and Allergies Home Medications Medication Instructions Recorded Confirmed Type Insulin Glulisine [Apidra] See Protocol SQ AC-BID 07/09/16 07/17/16 History Losartan [Cozaar] 25 mg PO DAILY 07/09/16 07/17/16 History Albuterol Inhaler [Ventolin Hfa 2 puff INHALATION RT-QID 07/17/16 07/17/16 History Inhaler] Budesonide-Formot 160-4.5 Mcg 2 puff INHALATION RT-BID 07/17/16 07/17/16 History [Symbicort 160-4.5 Mcg Inhaler] Allergies Allergy/AdvReac Type Severity Reaction Status Date / Time Penicillins Allergy Rash/Hives Verified 07/17/16 16:20 orange juice AdvReac Nausea Verified 07/17/16 16:20 Physical Exam Vitals: Vital Signs Temp Pulse Pulse Pulse Resp BP BP 07/18/16 12:00 96.4 F L 53 L 53 L 16 151/89 07/18/16 08:00 97.1 F L 63 16 120/55 07/18/16 04:00 97.5 F L 73 18 141/61 07/18/16 00:00 96.7 F L 65 17 121/64 07/17/16 20:00 97.0 F L 80 80 18 138/65 07/17/16 18:32 74 16 119/84 Pulse Ox 07/18/16 12:00 96 07/18/16 08:00 95 07/18/16 04:00 94 L 07/18/16 00:00 99 07/17/16 20:00 100 07/17/16 18:32 98 Intake and Output 07/17/16 07/18/16 07/18/16 22:59 06:59 14:59 Intake Total 250 450.2 Output Total 950 750 Balance -700 -299.8 Intake: IV 96.2 Sodium Chloride 0.9% 1, 96.2 000 ml @ 50 mls/hr IV . Q20H STA Rx#:[id number] Oral 250 354 Output: Urine 950 750 Other: Voiding Method Toilet Toilet Weight 80.1 kg 78.2 kg 78.2 kg Patient Weight 07/19/16 06:59 Weight 78.2 kg GENERAL EXAM: Alert, active, comfortable in no apparent distress. HEAD: Normocephalic. EYES: Normal reaction of pupils, equal size. NOSE: Clear with pink turbinates. THROAT: No erythema or exudates. NECK: No masses, no JVD. CHEST: No chest wall deformity. LUNGS: Equal air entry with no crackles, wheeze, rhonchi or dullness. CVS: S1 and S2 normal with no audible mumurs, regular rhythm. ABDOMEN: No hepatosplenomegaly, normal bowel sounds, no guarding or rigidity. SPINE: No scoliosis or deformity SKIN: No rashes CENTRAL NERVOUS SYSTEM: No focal deficits, tone is normal in all 4 extremities. Extremities: There is trace peripheral edema. No clubbing, no cyanosis. Peripheral pulses are intact. Results - Laboratory Findings CBC and BMP: 07/18/16 05:46 07/18/16 05:46 PT/INR, D-dimer PT 10.4 sec (9.0-12.0) 07/17/16 16:24 INR 1.0 (<1.1) 07/17/16 16:24 D-Dimer 2.02 mg/L FEU (<0.60) H 07/17/16 16:24 Abnormal lab findings: Abnormal Labs 07/17/16 07/17/16 07/18/16 19:50 23:30 05:46 RBC 3.76 L Hgb 11.0 L Hct 33.9 L Chloride Carbon Dioxide BUN Creatinine Glucose POC Glucose (mg/dL) 148 H Ur Leukocyte Esterase Trace H 07/18/16 07/18/16 07/18/16 05:46 06:25 11:44 RBC Hgb Hct Chloride 95 L Carbon Dioxide 32 H BUN 48 H Creatinine 1.50 H Glucose 124 H POC Glucose (mg/dL) 118 H 216 H Ur Leukocyte Esterase - Diagnostic Findings Chest x-ray: image reviewed Assessment and Plan Plan: Impression: #1 Recurrent left-sided pleural effusion secondary to suspected diastolic congestive heart failure, doubt parapneumonic. Asymptomatic. Ventilation/ perfusion scan was low probability for PE. #2 Acute exacerbation of diastolic congestive heart failure. #3 Moderate pulmonary hypertension. #4 Obesity. #5 Diabetes mellitus. #6 Hypertension. Plan: The patient was seen and evaluated by Dr. Chery. Her chest x-ray and labs were reviewed. There are no plans for repeat thoracentesis at this time. The patient remains asymptomatic and maintaining good O2 saturations in the mid to upper 90s on room air. She could be discharged home from the pulmonary standpoint. No antibiotics or bronchodilators needed. She could follow-up in our office in 1 week and we'll repeat her chest x-ray then. She and her family are all encouraged to call sooner with any recurrence of symptoms or other questions or concerns.
[2016-07-18 17:01] LABS: Glucose,Whole Blood 177 mg/dL (75-99)
--- NOTE | 2016-07-18 17:53 | PN ---
Patient was admitted secondary to possible congestive heart failure exacerbation. Patient although denied any orthopnea, PND. I had an extensive discussion with the patient as well as family members along with extensive review of her chart, since that is the first time I am seeing the patient. Patient had a normal ejection fraction during her previous hospitalization and patient has moderate pulmonary hypertension ( ) most probably right-sided heart failure with the possibility of diastolic heart dysfunction contributing to her pleural effusion. During her last hospitalization, Dr. Law believed that patient has pleural effusion secondary to cardiogenic causes. Patient's cytology is negative for malignancy. I did try to get all the labs of her pleural fluid. I did not see any LDH and protein to actually say whether it is a transudative or exudative effusion. Anyways, patient's pleural effusions remain the same. Patient does have elevated BNP. Will continue with IV Lasix today. Regarding her Eliquis, patient is on 2.5 oral b.i.d. of Eliquis, which is being held because of vaginal bleed. I had extensive discussion with the family regarding benefits and risks. The plan was made that we will continue with Eliquis, discontinue enoxaparin, and see if she starts bleeding again; then probably just use aspirin for atrial fibrillation anticoagulation. REVIEW OF SYSTEMS: CARDIOVASCULAR: No chest pain, no orthopnea, no PND, no palpitations. PULMONARY: Denied any shortness of breath. No cough or hemoptysis. GASTROINTESTINAL: No diarrhea, nausea or vomiting. No abdominal pain. Normoactive bowel sounds. NEUROLOGIC: No headaches, no weakness, no numbness. Medications were reviewed. PHYSICAL EXAMINATION: VITAL SIGNS: Temperature 96.4, pulse of 53, respiratory rate of 16, blood pressure 151/89. Saturating at 96% on room air. GENERAL: The patient is alert and oriented x3, not in any acute distress. Well developed, well nourished. HEENT: Pupils are round and equally reacting to light. EOMI. No scleral icterus. No conjunctival pallor. Normocephalic, atraumatic. No pharyngeal erythema. No thyromegaly. CARDIOVASCULAR: S1 and S2 present. No murmurs, rubs, or gallops. PULMONARY: Chest is clear to auscultation, no wheezing or crackles. ABDOMEN: Soft, nontender, nondistended, normoactive bowel sounds. No palpable organomegaly. MUSCULOSKELETAL: No joint swelling or deformity. EXTREMITIES: No cyanosis, clubbing, or pedal edema. NEUROLOGICAL: Gross neurological examination did not reveal any focal deficits. SKIN: No rashes. LABORATORY DATA: CBC, CMP are abnormal for elevated BUN and creatinine of 48 and 1.5. Baseline creatinine is around 2. ASSESSMENT AND PLAN: 1. Recurrent left-sided pleural effusion, probably due to most probably right-sided heart failure and moderate pulmonary hypertension. There is a possibility of diastolic dysfunction with normal ejection fraction and with acute exacerbation. Patient will continued on Lasix for today; probably will need to switch it to oral tomorrow. 2. Moderate pulmonary hypertension. 3. Type 2 diabetes mellitus. 4. Hypertension. 5. Chronic kidney disease, stage III. Her kidney function is actually better than her baseline. Will repeat electrolytes tomorrow. 6. Rule out pulmonary embolism with VQ scan. There is no evidence of pneumonia, because of which I will go ahead and discontinue all the antibiotics. 7. Diabetes mellitus. Will continue with her home regimen along with sliding scale. 8. History of atrial fibrillation, for which patient is on anticoagulation with Eliquis, which will be resumed, and enoxaparin will be discontinued. Since her kidney function is at her baseline, I will go ahead and continue her losartan.
--- NOTE | 2016-07-18 19:21 | CONS ---
DATE OF CONSULTATION: 80-year-old female admitted to the hospital by Dr. Corral. Consultation requested by Dr. Corral. REASON FOR CONSULTATION: Cardiac evaluation and treatment. This is the second admission in the last 2 weeks. Patient admitted to the hospital with atrial fibrillation and put her on Eliquis and came back that she had a gastrointestinal bleed previously at one time and another time had vagina bleeding and now patient came back with those symptoms and known patient of atrial fibrillation and hypertension, history of pulmonary embolism, history of cholecystectomy, follows with Dr. Bee on a regular basis. Patient is also moderately obese. Patient had some parapneumonic effusions thought to have left lower pneumonia in the past. Because of multiple medical problems including GI bleed and vaginal bleed, the patient dose has been reduced to 2.5 Eliquis which is reasonable. On patient's last admission also had a CT of pulmonary embolism, because of this pulmonary embolism probably have to continue his medications Eliquis at least at smaller doses realizing possibility of side effects and bleeding. Past history remarkable for diabetes mellitus, hypertension, hyperlipidemia, pulmonary embolism and congestive heart failure. The patient medications prior to admission include: 1. Lopressor 25 mg p.o. b.i.d. 2. Cozaar 25 mg p.o. daily. 3. Lantus 30 units subcu daily. 4. Lasix 40 mg daily. 5. Eliquis 2.5 mg p.o. b.i.d. 6. Ventolin HFA 2 puffs q.i.d. Past history, review of systems can be obtained from recent admissions. Patient's physical examination moderately obese 80-year-old female not in acute distress, oriented x3 with a pulse rate of 70 beats per minute, irregularly irregular, blood pressure 120/80 mmHg, respirations of 16. Head normocephalic. HEENT unremarkable. Neck is supple. No JVD. Cardiac exam is regular rate and rhythm. S1 and S2. No gallops are noted. Lungs are clinically clear to auscultation and percussion except for a few basal crackles. ABDOMEN: Obese. No organomegaly. Active bowel sounds. EXTREMITIES: No pedal edema. DIRECTOR VOICE examination: Grossly within normal limits. ASSESSMENT: 1. Left atrial fibrillation with controlled ventricular rate and history of mild vaginal bleed. Decreasing the dose of Eliquis to 2.5. 2. Left pleural effusion secondary to congestive heart failure and chronic diastolic dysfunction. Patient's chronic diastolic dysfunction and heart failure, systolic ejection fraction is well preserved. 3. Diabetes mellitus Type II. 4. Chronic kidney disease Stage III. 5. Hypertension. 6. Increased D. dimer. RECOMMENDATIONS: Concur with current therapy and lower dose is reasonable, very unlikely the patient will be able to tolerate the ( ) therapy, try to keep her in sinus with a dilated left atrium moderate.
[2016-07-18] MEDS: APIXABAN 2.5 MG TABLET PO SCH (20:20)
[2016-07-18 20:43] LABS: Glucose,Whole Blood 221 mg/dL (75-99)
[2016-07-18] MEDS: INSULIN GLARGINE 100 UNIT/ML 10 ML VIAL SQ SCH (23:53)
[2016-07-19 06:24] LABS: Basophils % (A) 0 %; CH 29.2; CHCM 32.1; Eosinophils # (A) 0.2 k/uL (0-0.7); Eosinophils % (A) 4 %; HCT 36.1 % (34.0-46.0); HDW 2.61; HGB 11.5 gm/dL (11.4-16.0); Luc % (Auto) 4; Lymphocytes # (A) 1.2 k/uL (1.0-4.8); Lymphocytes % (A) 21 %; MCH 29.1 pg (25.0-35.0); MCHC 31.9 g/dL (31.0-37.0); MCV 91.2 fL (80.0-100.0); Mean Platelet Volume 8.9; Monocytes # (A) 0.4 k/uL (0-1.0); Monocytes % (A) 8 %; Neutrophils # (A) 3.7 k/uL (1.3-7.7); Neutrophils % (A) 64 %; RBC 3.95 m/uL (3.80-5.40); RDW 13.3 % (11.5-15.5); WBC 5.8 k/uL (3.8-10.6); WBC (Perox) 6.14
[2016-07-19 06:30] LABS: Glucose,Whole Blood 69 mg/dL (75-99)
[2016-07-19 06:40] LABS: Calcium 9.4 mg/dL (8.4-10.2); Potassium 3.8 mmol/L (3.5-5.1)
[2016-07-19 06:50] LABS: Glucose,Whole Blood 78 mg/dL (75-99)
[2016-07-19] MEDS: INSULIN LISPRO (humaLOG) 300 UNIT/3 ML VIAL SQ SCH (06:56)
[2016-07-19] MEDS: METOPROLOL TARTRATE 25 MG TAB PO SCH (08:34)
[2016-07-19] MEDS: LOSARTAN 25 MG TAB PO SCH (08:34)
[2016-07-19] MEDS: FUROSEMIDE 10 MG/ML 4 ML VIAL IV SCH (08:34)
[2016-07-19] MEDS: APIXABAN 2.5 MG TABLET PO SCH (08:34)
[2016-07-19] MEDS: POTASSIUM CHLORIDE ER 20 MEQ TAB.ER PO SCH (08:34)
[2016-07-19 08:40] VITALS: BP 137/69; PULSE 73; RESP 16; TEMP 96.9
[2016-07-19 11:40] LABS: Glucose,Whole Blood 222 mg/dL (75-99)
--- NOTE | 2016-07-19 14:20 | P.PN ---
Subjective Progress note dated 07/19/2016 Is a very pleasant 80-year-old female that we saw yesterday in consultation. She sees Dr. Maritza Whalen in [facility] as her primary doctor. She was admitted with a diagnosis of shortness of breath likely related to underlying CHF. Anyway the patient is being discharged. She is a lifelong nonsmoker. No history of any chronic lung disease. She hated the breathing treatments that were started in the emergency room yesterday I cancel them. She's feeling much better. She was recently in the hospital had a thoracentesis performed by Dr. Law. We checked a fluid cytology was negative. The pleural effusion was likely all from the heart failure. Anyway she is feeling much better. Getting ready for discharge home today. Objective - Vital Signs Vital signs: Vital Signs Temp 96.9 F L 07/19/16 08:00 Pulse 73 07/19/16 08:00 Resp 16 07/19/16 08:00 BP 137/69 07/19/16 08:00 Pulse Ox 96 07/19/16 08:00 Intake & Output 07/18/16 07/19/16 07/19/16 18:59 06:59 18:59 Intake Total 493.2 472 Output Total 950 1000 550 Balance -456.8 -1000 -78 Weight 78.2 kg Intake: IV 139.2 Invasive Line 1 43 Sodium Chloride 0.9% 1, 96.2 000 ml @ 50 mls/hr IV . Q20H STA Rx#:[id number] Oral 354 472 Output: Urine 950 1000 550 Other: Voiding Method Toilet - Exam No acute distress, oriented 3. HEENT examination is grossly unremarkable. Mucous membranes are moist. Neck supple. Full range of motion. No adenopathy. No thyromegaly. Neck veins are flat. Cardiovascular examination reveals distant heart sounds. S1 and S2 normal. No S3-S4. Lungs reveal relatively clear breath sounds. Maybe a few scattered mild crackles. No wheezes. No rhonchi. Abdomen soft Extremities are intact - Labs CBC & Chem 7: 07/19/16 06:06 07/19/16 06:06 Labs: Abnormal Lab Results - Last 24 Hours (Table) 07/18/16 07/18/16 07/19/16 Range/Units 16:49 20:42 06:06 Chloride 96 L (98-107) mmol/L Carbon Dioxide 35 H (22-30) mmol/L BUN 46 H (7-17) mg/dL Creatinine 1.48 H (0.52-1.04) mg/dL POC Glucose (mg/dL) 177 H 221 H (75-99) mg/dL 07/19/16 07/19/16 Range/Units 06:29 11:38 Chloride (98-107) mmol/L Carbon Dioxide (22-30) mmol/L BUN (7-17) mg/dL Creatinine (0.52-1.04) mg/dL POC Glucose (mg/dL) 69 L 222 H (75-99) mg/dL Assessment and Plan (1) Chronic a-fib Status: Acute (2) Congestive heart failure Status: Acute (3) Diabetes Status: Acute (4) Diastolic CHF, acute on chronic Status: Acute (5) Pleural effusion, left Status: Acute Plan: plan dated 07/19/2016 The patient may be discharged home today. We'll continue to follow as needed. Again she had a recent thoracentesis performed by my partner. The cytology was negative for malignancy. She's feeling better. Her updrafts and breathing treatments were discontinued. Time with Patient: Less than 30
--- NOTE | 2016-07-19 14:39 | P.PN ---
Subjective Principal diagnosis: Left pleural effusion This is a pleasant 80-year-old female with history of diabetes, hypertension, diastolic congestive heart failure, who was recently in the hospital for suspected parapneumonic effusion of the left lung and had undergone a thoracentesis by Dr. Agarwal. Cytology was negative for malignancy. Subsequently she was discharged home, had a follow-up chest x-ray as an outpatient which revealed a left-sided pleural effusion and patient was readmitted to the hospital. She denied any overt chest discomfort, no PND or orthopnea, no peripheral edema. Most recent echocardiogram with Doppler study revealed an ejection fraction of 50-55%. Patient was initiated on IV Lasix 40 mg 12 hours. Weight is down 2 kg from her admission here. CBC is normal, potassium 3.8, BUN 46, creatinine 1.4. Objective - Vital Signs Vital signs: Vital Signs Temp 96.9 F L 07/19/16 08:00 Pulse 73 07/19/16 08:00 Resp 16 07/19/16 08:00 BP 137/69 07/19/16 08:00 Pulse Ox 96 07/19/16 08:00 Intake & Output 07/18/16 07/19/16 07/19/16 18:59 06:59 18:59 Intake Total 493.2 472 Output Total 950 1000 550 Balance -456.8 -1000 -78 Weight 78.2 kg Intake: IV 139.2 Invasive Line 1 43 Sodium Chloride 0.9% 1, 96.2 000 ml @ 50 mls/hr IV . Q20H STA Rx#:[id number] Oral 354 472 Output: Urine 950 1000 550 Other: Voiding Method Toilet - Exam PHYSICAL EXAMINATION: HEENT: Head is atraumatic, normocephalic. Pupils equal, round. Neck is supple. There is no elevated jugular venous pressure. HEART EXAMINATION: S1 and S2 irregularly irregular, systolic murmur heard. CHEST EXAMINATION: Lungs are clear to auscultation and precussion. No chest wall tenderness is noted on palpation or with deep breathing. ABDOMEN: Soft, nontender. Bowel sounds are heard. No organomegaly noted. EXTREMITIES: 2+ peripheral pulses with no evidence of peripheral edema and no calf tenderness noted. NEUROLOGIC patient is awake, alert and oriented -3. . - Labs CBC & Chem 7: 07/19/16 06:06 07/19/16 06:06 Labs: Abnormal Lab Results - Last 24 Hours (Table) 07/18/16 07/18/16 07/19/16 Range/Units 16:49 20:42 06:06 Chloride 96 L (98-107) mmol/L Carbon Dioxide 35 H (22-30) mmol/L BUN 46 H (7-17) mg/dL Creatinine 1.48 H (0.52-1.04) mg/dL POC Glucose (mg/dL) 177 H 221 H (75-99) mg/dL 07/19/16 07/19/16 Range/Units 06:29 11:38 Chloride (98-107) mmol/L Carbon Dioxide (22-30) mmol/L BUN (7-17) mg/dL Creatinine (0.52-1.04) mg/dL POC Glucose (mg/dL) 69 L 222 H (75-99) mg/dL Assessment and Plan Plan: From cardiology's perspective, we will recommend to discontinue the IV Lasix and place the patient on oral diuretics. She may be able to be discharged home once cleared by her primary, she does have a follow-up appointment at our office early in July which she has been instructed to keep. DNP note has been reviewed, I agree with a documented findings and plan of care. Patient was seen and examined.
--- NOTE | 2016-07-20 07:22 | DS ---
DATE OF ADMISSION: 07/17/2016 DATE OF DISCHARGE: 07/19/2016 The patient is admitted secondary to congestive heart failure, possible chronic diastolic dysfunction and right sided heart failure. The patient has significant improvement in symptoms and patient is being discharged on 40 oral b.i.d. of Lasix. Patient was on 40 daily of Lasix. Patient's pedal edema improved. Patient overall improved and patient has very minimal limited vaginal bleed after starting on Eliquis. Patient will be started back on Eliquis at a lower dose and instructed that if she has bleeding, stop the Eliquis and call Dr. Jacinto Prieto who is her etl tester. Patient was seen and examined on the day of discharge. Vitals are stable. PHYSICAL EXAMINATION: GENERAL: The patient is alert and oriented x3, not in any acute distress. Well developed, well nourished. HEENT: Pupils are round and equally reacting to light. EOMI. No scleral icterus. No conjunctival pallor. Normocephalic, atraumatic. No pharyngeal erythema. No thyromegaly. CARDIOVASCULAR: S1 and S2 present. No murmurs, rubs, or gallops. PULMONARY: Chest is clear to auscultation, no wheezing or crackles. ABDOMEN: Soft, nontender, nondistended, normoactive bowel sounds. No palpable organomegaly. MUSCULOSKELETAL: No joint swelling or deformity. EXTREMITIES: No cyanosis, clubbing, or pedal edema. NEUROLOGICAL: Gross neurological examination did not reveal any focal deficits. SKIN: No rashes. LABORATORY DATA: BUN and creatinine actually improved. BUN 46 and creatinine is 1.48. ASSESSMENT AND PLAN: 1. Recurrent left sided pleural effusion secondary to probably right-sided heart failure, moderate pulmonary hypertension and possibility of diastolic dysfunction with acute exacerbation. Patient has normal ejection fraction. 2. Moderate pulmonary hypertension. 3. Type 2 diabetes mellitus. 4. Hypertension. 5. Chronic kidney disease stage III. 6. Acute renal failure secondary to prerenal azotemia from congestive heart failure, which improved a little bit. 7. Rule out pulmonary embolism with VQ scan. 8. History of atrial fibrillation for which patient is Eliquis management. Eliquis as mentioned above. Patient will be discharged today. Please refer to my depart summary for further details of discharge medications. Activity as tolerated. Cardiac diet. CHF discharge instructions will be provided. Patient does have diabetic nephropathy, diabetic 1800 calorie diet. Patient will follow with Dr. Maritza Bee on July 24 at 11 a.m. Activity as tolerated. [facility] nursing will follow the patient as an outpatient.
--- NOTE | 2016-07-20 07:24 | DS ---
DATE OF ADMISSION: 07/17/2016 DATE OF DISCHARGE: 07/19/2016 ADDENDUM: Spent greater than 35 minutes in total discharge process.
== END 2016-07-19 14:08 | disposition home health service (06) | DRG 291 ==
LOC: EC 15:20 → 6SEL 17:59
PROVIDERS: ADMIT Internal Medicine; ATTEND Internal Medicine
DX: I13.0 Hypertensive heart and chronic kidney disease with heart failure and stage 1 through stage 4 chronic kidney disease, or unspecified chronic kidney disease (principal); I50.43 Acute on chronic combined systolic (congestive) and diastolic (congestive) heart failure; N17.9 Acute kidney failure, unspecified; E11.21 Type 2 diabetes mellitus with diabetic nephropathy; I27.2 Other secondary pulmonary hypertension; E87.1 Hypo-osmolality and hyponatremia; E11.22 Type 2 diabetes mellitus with diabetic chronic kidney disease; E66.9 Obesity, unspecified; E78.5 Hyperlipidemia, unspecified; I48.2 Chronic atrial fibrillation; I49.3 Ventricular premature depolarization; N18.3 Chronic kidney disease, stage 3 (moderate); Z79.01 Long term (current) use of anticoagulants; Z79.4 Long term (current) use of insulin; Z79.899 Other long term (current) drug therapy; Z86.711 Personal history of pulmonary embolism; Z87.01 Personal history of pneumonia (recurrent); Z87.891 Personal history of nicotine dependence
CPT/HCPCS: 36415; 71020; 78582; 80048; 80053; 81001; 82550; 82553; 83036; 83880; 84484; 85025; 85379; 85610; 85730; 93005; 96374; 99291

== ENCOUNTER 2018-03-11 07:30 | Day surgery (SDC) | payer MEDICARE ==
[2018-03-06 16:07] VITALS: BMI 32.9
[~2018-03-11 07:30] MED LIST: LACTATED RINGERS 1,000 ML IV SCH
[2018-03-11 08:14] VITALS: TEMP 97.1
[2018-03-11] MEDS ORDERED: LIDOCAINE 1% 20 ML VIAL (10MG/ML) FOR IV START INTRADERMA ONE (08:24)
[2018-03-11 08:36] LABS: Glucose,Whole Blood 96 mg/dL (75-99)
[2018-03-11] MEDS ORDERED: LIDOCAINE 1% INJ 10MG/ML (20 ML MDV) ONE (08:49)
[2018-03-11] MEDS ORDERED: PROPOFOL 10 MG/ML 20 ML VIAL IV ONE (08:49)
[2018-03-11 09:27] VITALS: RESP 16
--- NOTE | 2018-03-11 09:32 | P.PCN ---
Date of Procedure: 03/11/18 Procedure(s) Performed: Procedure: 1. Esophagogastroduodenoscopy and biopsy. 2. Total colonoscopy. Preoperative diagnosis: GI bleeding. Postoperative diagnosis: 1. Small sliding hiatal hernia with no obvious esophagitis or complicated reflux disease. 2. Mild gastritis and duodenitis. 3. Biopsies obtained from the duodenum, antrum and esophagus. 4. Sigmoid diverticulosis with no evidence of acute diverticulitis, strictures, polyps or cancer. 5. Low-grade internal hemorrhoids without bleeding at the time of this exam. Preparation: HalfLytely prep. Sedation: Was provided by anesthesia. Brief clinical history: The patient is an 82-year-old female who is scheduled for this evaluation because of finding of blood in the stools. She had no prior upper endoscopy. Her last colonoscopy was several years back. Procedure: With the patient on her left lateral decubitus position and after informed consent and adequate sedation, I passed the Olympus-GIF 160 video upper endoscope through the cricopharyngeus down the esophagus. GE junction was around 38 cm from the incisors and there was a small sliding hiatal hernia but no obvious esophagitis or complicated reflux disease. The endoscope was then passed into the stomach which was insufflated with air and inspected in detail including the retroflex view in the cardia. There was some mottling and erythema in the antrum but no ulcers or erosions. Pyloric channel did not show any ulcers. Duodenal bulb, post bulbar area and descending duodenum showed some mottling, erythema and minimal friability but no ulcers, erosions or bleeding. I obtained biopsies from the duodenum, antrum and esophagus then the endoscope was withdrawn and I proceeded with the colonoscopy. Perianal area did not show any fissures or fistulas. There were no masses felt on digital rectal examination. The Olympus CFQ 160L video colonoscope was then inserted in the rectum in the usual fashion and advanced to the cecum. There were multiple diverticular orifices seen scattered in the sigmoid but I saw no evidence of acute diverticulitis or strictures. No polyps or tumors were seen or any potential sources of bleeding. I retroflexed the endoscope in the rectum before the endoscope was withdrawn. Low-grade internal hemorrhoids were noted with no evidence of bleeding. The patient tolerated the procedure well. Plan: The patient was reassured. Discussed dietary measures and local care for hemorrhoids. Further plans based on her course. She will follow-up with you as planned.
[2018-03-11 09:45] VITALS: BP 100/64; PULSE 66
--- NOTE | 2018-03-13 07:07 | CDI ---
Date: 03/13/18 CDS/Factory Worker Name: Merna Hicks Phone: If any questions, call [facility] [employer] [facility] at [phone] Patient Name: Ailin Zuluaga Admit Date: 03/11/18 Discharge Date: 03/11/18 ATTENTION: The [facility] Coding Staff appreciate your assistance in clarifying documentation. Please respond to the clarification below the line at the bottom and electronically sign. The [facility] Coding staff will review the response and follow-up if needed. Please note: Queries are made part of the Legal Health Record. If you have any questions, please contact the [employer]. Dear Dr. Valdes, Please provide clarification as to the cause of the GI bleed. Please clarify if any of the findings are the cause of the GI bleed or if the etiology of the GI bleed is unknown. Thank you for your kind consideration. __ MTDD
== END 2018-03-11 10:20 | disposition home or self-care (01) ==
LOC: ORWHC2ENDO 07:30
DX: K44.9 Diaphragmatic hernia without obstruction or gangrene (principal); K57.30 Diverticulosis of large intestine without perforation or abscess without bleeding; K64.8 Other hemorrhoids; K29.50 Unspecified chronic gastritis without bleeding; K92.2 Gastrointestinal hemorrhage, unspecified; K20.9 Esophagitis, unspecified; K29.80 Duodenitis without bleeding; I10 Essential (primary) hypertension; E11.9 Type 2 diabetes mellitus without complications; M19.90 Unspecified osteoarthritis, unspecified site; I48.91 Unspecified atrial fibrillation; I50.9 Heart failure, unspecified; Z79.01 Long term (current) use of anticoagulants; Z79.4 Long term (current) use of insulin; Z79.899 Other long term (current) drug therapy; Z88.0 Allergy status to penicillin; Z91.018 Allergy to other foods
CPT/HCPCS: 88305; 45378; 43239; J2001; J2704

== ENCOUNTER → 2018-09-03 | Outpatient (CLI) | payer MEDICARE ==
--- NOTE | 2018-09-03 11:58 | US ---
EXAMINATION TYPE: US kidneys/renal and bladder DATE OF EXAM: 09/03/2018 COMPARISON: NONE CLINICAL HISTORY: R94.4 Abn renal function,N18.3 CKD Stage 3. EXAM MEASUREMENTS: Right Kidney: 9.0 x 5.3 x 4.2 cm Left Kidney: 10.7 x 6.8 x3.5 cm Post Void Residual Volume: 25.1 mL Right Kidney: No hydronephrosis or masses seen Left Kidney: No hydronephrosis or masses seen; larger than right kidney Bladder: wnl Bilateral Jets seen: no, after 3 minute observation Normal Post Void Residual: yes There is bilateral diminished cortical medullary differentiation and cortical renal thinning. There i s no evidence for hydronephrosis at this point in time. No nephrolithiasis is seen. No masses are i dentified. The urinary bladder is anechoic. IMPRESSION: Sonographic sequela of medical renal disease with diminished cortical medullary differentiation and c ortical renal thinning bilaterally. No hydronephrosis or nephrolithiasis.
== END | disposition home or self-care (01) ==
LOC: RADUSWWP 10:51
PROVIDERS: ATTEND Family Medicine
DX: N18.3 Chronic kidney disease, stage 3 (moderate) (principal); R94.4 Abnormal results of kidney function studies
CPT/HCPCS: 76770

== ENCOUNTER 2018-10-16 11:35 | Inpatient (IN) | payer MEDICARE ==
[2018-10-16] MEDS ORDERED: ASPIRIN 81 MG PO STA (12:09)
[2018-10-16] MEDS ORDERED: NITROGLYCERIN OINT 1 INCH/GM PACKET TOPICAL STA (12:09)
--- NOTE | 2018-10-16 12:24 | ED ---
General Adult HPI - General Chief complaint: Shortness of Breath Stated complaint: SOB Time Seen by Provider: 10/16/18 11:35 Source: patient, family, RN notes reviewed Mode of arrival: wheelchair Limitations: no limitations - History of Present Illness Initial comments: This is an 82-year-old female presents to the emergency department with a past medical history significant for kidney failure and congestive heart failure and diabetes. Patient comes in today patient denies any difficulty breathing over a week in complaining of chest pressure. Patient states she has had fluid drained from her lung in the past. Patient states she's had a slight cough she's had no fever chills. Patient denies any palpitations or chest pressure. Patient denies any radiation of the pain. Patient denies any diaphoresis. Patient denies any nausea. Patient denies any abdominal pain. Patient denies any lightheadedness dizziness or syncopal episode. - Related Data Home Medications Medication Instructions Recorded Confirmed Insulin Glulisine [Apidra] See Protocol SQ AC-BID 07/09/16 10/16/18 Insulin Glargine,Hum.rec.anlog See Protocol SQ HS 03/06/18 10/16/18 [Lantus Solostar] Kelp 1 tab PO DAILY 03/06/18 10/16/18 Biotin 5 mg PO DAILY 10/16/18 10/16/18 Cholecalciferol (Vitamin D3) 2,000 unit PO DAILY 10/16/18 10/16/18 [Vitamin D3] Metoprolol Tartrate [Lopressor] 25 mg PO BID 10/16/18 10/16/18 Ubidecarenone [Co Q-10] 100 mg PO DAILY 10/16/18 10/16/18 amLODIPine [Norvasc] 5 mg PO DAILY 10/16/18 10/16/18 Previous Rx's Medication Instructions Recorded Furosemide [Lasix] 40 mg PO BID #30 tab 07/19/16 Potassium Chloride ER [K-Dur 20] 20 meq PO DAILY #30 tab.er.prt 07/19/16 Allergies Allergy/AdvReac Type Severity Reaction Status Date / Time Penicillins Allergy Rash/Hives Verified 10/16/18 12:01 orange juice AdvReac Nausea Verified 10/16/18 12:01 Review of Systems ROS Statement: Those systems with pertinent positive or pertinent negative responses have been documented in the HPI. ROS Other: All systems not noted in ROS Statement are negative. Past Medical History Past Medical History: Atrial Fibrillation, Heart Failure, Diabetes Mellitus, Hypertension, Osteoarthritis (OA), Pneumonia Additional Past Medical History / Comment(s): MURMUR. Diarrhea X last month. History of Any Multi-Drug Resistant Organisms: None Reported Past Surgical History: Section, Cholecystectomy Past Anesthesia/Blood Transfusion Reactions: No Reported Reaction Past Psychological History: No Psychological Hx Reported Smoking Status: Never smoker Past Alcohol Use History: None Reported Past Drug Use History: None Reported - Past Family History Father Additional Family Medical History / Comment(s): IN HIS 20'S WAS ELECTROCUTED Mother Family Medical History: Cancer Additional Family Medical History / Comment(s): LEUKEMIA Daughter(s) Family Medical History: Cancer Additional Family Medical History / Comment(s): Uterine cancer General Exam - General Exam Comments Initial Comments: GENERAL: Patient is well-developed and well-nourished. Patient is nontoxic and well-hydrated and is in mild distress. ENT: Neck is soft and supple. No significant lymphadenopathy is noted. Oropharynx is clear. Moist mucous membranes. Neck has full range of motion without eliciting any pain. EYES: The sclera were anicteric and conjunctiva were pink and moist. Extraocular movements were intact and pupils were equal round and reactive to light. Eyelids were unremarkable. PULMONARY: She has diminished breath sounds on the left. CARDIOVASCULAR: Irregular rate and rhythm ABDOMEN: Soft and nontender with normal bowel sounds. No palpable organomegaly was noted. There is no palpable pulsatile mass. SKIN: Skin is clear with no lesions or rashes and otherwise unremarkable. NEUROLOGIC: Patient is alert and oriented x3. Cranial nerves II through XII are grossly intact. Motor and sensory are also intact. Normal speech, volume and content. Symmetrical smile. MUSCULOSKELETAL: Normal extremities with adequate strength and full range of motion. No lower extremity swelling or edema. No calf tenderness. LYMPHATICS: No significant lymphadenopathy is noted PSYCHIATRIC: Normal psychiatric evaluation. Normal interpersonal interactions appears functionally intact in deals appropriately with others. No signs of depression. Limitations: no limitations Course Vital Signs 10/16/18 10/16/18 10/16/18 11:36 12:19 12:26 Temperature 97.7 F Pulse Rate 88 67 Respiratory 22 20 18 Rate Blood Pressure 121/66 128/55 O2 Sat by Pulse 94 L 93 L Oximetry 10/16/18 13:26 Temperature Pulse Rate 72 Respiratory 18 Rate Blood Pressure 105/65 O2 Sat by Pulse 96 Oximetry Medical Decision Making - Medical Decision Making EKG shows atrial fibrillation at a rate of 84 bpm QRS is 56 QT interval 374 QTC is 441. Patient's EKG shows no ST segment elevation. Chest x-ray shows large left-sided pleural effusion. I [facility] with [facility] agreed to admit the patient admitted the patient I wrote admitting orders - Lab Data Result diagrams: 10/16/18 12:15 10/16/18 12:15 Lab Results 10/16/18 10/16/18 10/16/18 Range/Units 12:15 12:15 12:15 WBC 8.4 (3.8-10.6) k/uL RBC 3.60 L (3.80-5.40) m/uL Hgb 10.4 L (11.4-16.0) gm/dL Hct 33.7 L (34.0-46.0) % MCV 93.7 (80.0-100.0) fL MCH 28.9 (25.0-35.0) pg MCHC 30.9 L (31.0-37.0) g/dL RDW 13.8 (11.5-15.5) % Plt Count 258 (150-450) k/uL Neutrophils % 81 % Lymphocytes % 10 % Monocytes % 5 % Eosinophils % 2 % Basophils % 0 % Neutrophils # 6.8 (1.3-7.7) k/uL Lymphocytes # 0.8 L (1.0-4.8) k/uL Monocytes # 0.4 (0-1.0) k/uL Eosinophils # 0.2 (0-0.7) k/uL Basophils # 0.0 (0-0.2) k/uL Hypochromasia Slight PT (9.0-12.0) sec INR (<1.2) APTT (22.0-30.0) sec Sodium 139 (137-145) mmol/L Potassium 5.1 (3.5-5.1) mmol/L Chloride 102 (98-107) mmol/L Carbon Dioxide 21 L (22-30) mmol/L Anion Gap 16 mmol/L BUN 58 H (7-17) mg/dL Creatinine 3.66 H (0.52-1.04) mg/dL Est GFR (CKD-EPI)AfAm 12 (>60 ml/min/1.73 sqM) Est GFR (CKD-EPI)NonAf 11 (>60 ml/min/1.73 sqM) Glucose 186 H (74-99) mg/dL Calcium 9.5 (8.4-10.2) mg/dL Magnesium 2.2 (1.6-2.3) mg/dL Total Bilirubin 0.4 (0.2-1.3) mg/dL AST 20 (14-36) U/L ALT 14 (9-52) U/L Alkaline Phosphatase 133 H (38-126) U/L Troponin I (0.000-0.034) ng/mL NT-Pro-B Natriuret Pep 1590 pg/mL Total Protein 7.4 (6.3-8.2) g/dL Albumin 4.1 (3.5-5.0) g/dL 10/16/18 10/16/18 Range/Units 12:15 12:15 WBC (3.8-10.6) k/uL RBC (3.80-5.40) m/uL Hgb (11.4-16.0) gm/dL Hct (34.0-46.0) % MCV (80.0-100.0) fL MCH (25.0-35.0) pg MCHC (31.0-37.0) g/dL RDW (11.5-15.5) % Plt Count (150-450) k/uL Neutrophils % % Lymphocytes % % Monocytes % % Eosinophils % % Basophils % % Neutrophils # (1.3-7.7) k/uL Lymphocytes # (1.0-4.8) k/uL Monocytes # (0-1.0) k/uL Eosinophils # (0-0.7) k/uL Basophils # (0-0.2) k/uL Hypochromasia PT 10.6 (9.0-12.0) sec INR 1.0 (<1.2) APTT 25.1 (22.0-30.0) sec Sodium (137-145) mmol/L Potassium (3.5-5.1) mmol/L Chloride (98-107) mmol/L Carbon Dioxide (22-30) mmol/L Anion Gap mmol/L BUN (7-17) mg/dL Creatinine (0.52-1.04) mg/dL Est GFR (CKD-EPI)AfAm (>60 ml/min/1.73 sqM) Est GFR (CKD-EPI)NonAf (>60 ml/min/1.73 sqM) Glucose (74-99) mg/dL Calcium (8.4-10.2) mg/dL Magnesium (1.6-2.3) mg/dL Total Bilirubin (0.2-1.3) mg/dL AST (14-36) U/L ALT (9-52) U/L Alkaline Phosphatase (38-126) U/L Troponin I <0.012 (0.000-0.034) ng/mL NT-Pro-B Natriuret Pep pg/mL Total Protein (6.3-8.2) g/dL Albumin (3.5-5.0) g/dL Disposition Clinical Impression: Dyspnea, Pleural effusion, Renal failure Disposition: ADMITTED IP TO THIS HOSP Referrals: Maritza Bee DO [Primary Care Provider] - 1-2 days Time of Disposition: 13:39
[2018-10-16 12:35] LABS: Basophils % (A) 0 %; Eosinophils # (A) 0.2 k/uL (0-0.7); Eosinophils % (A) 2 %; HCT 33.7 % (34.0-46.0); HGB 10.4 gm/dL (11.4-16.0); Hypochromasia Slight; Lymphocytes # (A) 0.8 k/uL (1.0-4.8); Lymphocytes % (A) 10 %; MCH 28.9 pg (25.0-35.0); MCHC 30.9 g/dL (31.0-37.0); MCV 93.7 fL (80.0-100.0); Mean Platelet Volume 8.5; Monocytes # (A) 0.4 k/uL (0-1.0); Monocytes % (A) 5 %; Neutrophils # (A) 6.8 k/uL (1.3-7.7); Neutrophils % (A) 81 %; Platelet Count 258 k/uL (150-450); RDW 13.8 % (11.5-15.5); WBC 8.4 k/uL (3.8-10.6)
[2018-10-16 12:40] LABS: Partial Thromboplastin Time 25.1 sec (22.0-30.0); Prothrombin Time 10.6 sec (9.0-12.0)
[2018-10-16 12:46] LABS: Albumin 4.1 g/dL (3.5-5.0); Calcium 9.5 mg/dL (8.4-10.2); Magnesium 2.2 mg/dL (1.6-2.3); Potassium 5.1 mmol/L (3.5-5.1); Total Bilirubin 0.4 mg/dL (0.2-1.3); Total Protein 7.4 g/dL (6.3-8.2)
--- NOTE | 2018-10-16 13:08 | XR ---
EXAMINATION TYPE: XR chest 2V DATE OF EXAM: 10/16/2018 COMPARISON: 07/17/2016 HISTORY: 82-year-old female shortness of breath, difficulty breathing TECHNIQUE: AP and lateral views FINDINGS: The heart margin obscured by adjacent parenchymal opacity. There is a large left pleural effusion wit h underlying opacity throughout the left lung. Trace effusion on the right. Hyperinflation with mild interstitial prominence. IMPRESSION: Large left pleural effusion with adjacent atelectasis and or consolidation. Trace effusion on the rig ht. Background of COPD and possible mild pulmonary vascular congestion. Correlate as to the etiology of the patient's large effusion.
--- NOTE | 2018-10-16 15:01 | US ---
EXAMINATION TYPE: US chest DATE OF EXAM: 10/16/2018 COMPARISON: NONE CLINICAL HISTORY: left pleural effusion. Left pleural effusion TECHNIQUE: Targeted ultrasound of the posterior lower left hemithorax EXAM MEASUREMENTS: Left Pleural Effusion pocket size: 11.1 cm Left skin surface to fluid distance: 3.3 cm Left side MARKED for possible thoracentesis outside the dept. Pulmonologists are able to review the images in the patient?s EMR. IMPRESSIONS: Left pleural effusion
[2018-10-16] MEDS ORDERED: IPRATROPIUM-ALBUTEROL 3 ML NEB INHALATION PRN (15:02)
--- NOTE | 2018-10-16 15:25 | P.CNPUL ---
History of Present Illness Consult date: 10/16/18 Reason for consult: dyspnea, pleural effusion, abnormal CXR/CT Chief complaint: Large left-sided pleural effusion History of present illness: This is a 82-year-old white female patient with past medical history of diabet es mellitus type 2, asthma atrial fibrillation, not on any chronic anticoagulation, chronic kidney disease, hypertension, osteoarthritis, previous episode of pneumonia. Patient is a lifetime nonsmoker, we had seen the patient in the past in 2017 for left-sided pleural effusion was thought to be related to congestive heart failure with diastolic dysfunction. Patient did have paracentesis back then by Dr. Mancuso, with negative cytologies. Patient came into the hospital today on 10/16/2018 with complaints of worsening shortness of breath, orthopnea, cough, phlegm production, but denied any fever or chills, denied any chest pain. Also had a significant lower extremity edema. Her symptoms started about a week ago and became progressively worse. Patient has not been able to sleep very well related to orthopnea. Does have a cough, occasional production of phlegm. No nausea, no vomiting, no abdominal pain, no lightheadedness or dizziness. Chest x-ray was completed showing a large left pleural effusion with adjacent atelectasis and/or consolidation, and trace pleural effusion on the right. There was background COPD and possible mild pulmonary vascular congestion. EKG showed atrial fibrillation with PVCs, and controlled rate, no acute ischemic changes. She is afebrile, hemodynamically stable, room air pulse ox is 94%. Lab work showed white blood cell count of 8.4, hemoglobin of 10.4, platelet count is 258, INR is 1.0, serum sodium was 139, potassium is 5.1, chloride was 102, CO2 is 21, BUN is 50, creatinine is 3.6, with a GFR of 11, consistent with stage IV CKD. Troponin was negative 1, proBNP was 1590. She is seen in evaluation in the emergency department, she is resting on the gurney, acute distress unless she is laying down flat. She is at 2 L of oxygen with a pulse ox of 96%. We are consulted for possible thoracentesis for a large left-sided pleural effusion. Review of Systems All systems: negative Constitutional: Denies chills, Denies fever Eyes: denies blurred vision, denies pain Ears, nose, mouth and throat: Denies headache, Denies sore throat Cardiovascular: Reports leg edema, Reports shortness of breath, Denies chest pain Respiratory: Reports dyspnea, Denies cough Gastrointestinal: Denies abdominal pain, Denies diarrhea, Denies nausea, Denies vomiting Genitourinary: Denies dysuria, Denies hematuria Musculoskeletal: Denies myalgias Integumentary: Denies pruritus, Denies rash Neurological: Denies numbness, Denies weakness Psychiatric: Denies anxiety, Denies depression Endocrine: Denies fatigue, Denies weight change Past Medical History Past Medical History: Atrial Fibrillation, Heart Failure, Diabetes Mellitus, Hypertension, Osteoarthritis (OA), Pneumonia Additional Past Medical History / Comment(s): MURMUR. Diarrhea X last month. History of Any Multi-Drug Resistant Organisms: None Reported Past Surgical History: Section, Cholecystectomy Past Anesthesia/Blood Transfusion Reactions: No Reported Reaction Past Psychological History: No Psychological Hx Reported Smoking Status: Never smoker Past Alcohol Use History: None Reported Past Drug Use History: None Reported - Past Family History Father Additional Family Medical History / Comment(s): IN HIS 20'S WAS ELECTROCUTED Mother Family Medical History: Cancer Additional Family Medical History / Comment(s): LEUKEMIA Daughter(s) Family Medical History: Cancer Additional Family Medical History / Comment(s): Uterine cancer Medications and Allergies Home Medications Medication Instructions Recorded Confirmed Type Insulin Glulisine [Apidra] See Protocol SQ AC-BID 07/09/16 10/16/18 History Furosemide [Lasix] 40 mg PO BID #30 tab 07/19/16 10/16/18 Rx Potassium Chloride ER [K-Dur 20] 20 meq PO DAILY #30 tab.er.prt 07/19/16 10/16/18 Rx Insulin Glargine,Hum.rec.anlog See Protocol SQ HS 03/06/18 10/16/18 History [Lantus Solostar] Kelp 1 tab PO DAILY 03/06/18 10/16/18 History Biotin 5 mg PO DAILY 10/16/18 10/16/18 History Cholecalciferol (Vitamin D3) 2,000 unit PO DAILY 10/16/18 10/16/18 History [Vitamin D3] Metoprolol Tartrate [Lopressor] 25 mg PO BID 10/16/18 10/16/18 History Ubidecarenone [Co Q-10] 100 mg PO DAILY 10/16/18 10/16/18 History amLODIPine [Norvasc] 5 mg PO DAILY 10/16/18 10/16/18 History Allergies Allergy/AdvReac Type Severity Reaction Status Date / Time Penicillins Allergy Rash/Hives Verified 10/16/18 12:01 orange juice AdvReac Nausea Verified 10/16/18 12:01 Physical Exam Vitals: Vital Signs Temp Pulse Resp BP Pulse Ox 10/16/18 13:26 72 18 105/65 96 10/16/18 12:26 67 18 128/55 93 L 10/16/18 12:19 20 10/16/18 11:36 97.7 F 88 22 121/66 94 L Intake and Output 10/16/18 10/16/18 10/16/18 06:59 14:59 22:59 Other: Weight 72.121 kg GENERAL EXAM: Alert, pleasant, 82-year-old white female, on 2 L of oxygen with a pulse ox of 96% comfortable in no apparent distress. HEAD: Normocephalic/atraumatic. EYES: Normal reaction of pupils, equal size. Conjunctiva pink, sclera white. NOSE: Clear with pink turbinates. THROAT: No erythema or exudates. NECK: No masses, no JVD, no thyroid enlargement, no adenopathy. CHEST: No chest wall deformity. Symmetrical expansion. LUNGS: Equal air entry with diminished breath sounds at the left lower base, and some scattered crackles CVS: Regular rate and rhythm, normal S1 and S2, no gallops, no murmurs, no rubs ABDOMEN: Soft, nontender. No hepatosplenomegaly, normal bowel sounds, no guarding or rigidity. EXTREMITIES: No clubbing, 2+ lower extremity edema, no cyanosis, 2+ pulses and upper and lower extremities. MUSCULOSKELETAL: Muscle strength and tone normal. SPINE: No scoliosis or deformity SKIN: No rashes CENTRAL NERVOUS SYSTEM: Alert and oriented -3. No focal deficits, tone is normal in all 4 extremities. PSYCHIATRIC: Alert and oriented -3. Appropriate affect. Intact judgment and insight. Results - Laboratory Findings CBC and BMP: 10/16/18 12:15 10/16/18 12:15 PT/INR, D-dimer PT 10.6 sec (9.0-12.0) 06/26/19 12:15 INR 1.0 (<1.2) 10/16/18 12:15 Abnormal lab findings: Abnormal Labs 10/16/18 10/16/18 12:15 12:15 RBC 3.60 L Hgb 10.4 L Hct 33.7 L MCHC 30.9 L Lymphocytes # 0.8 L Carbon Dioxide 21 L BUN 58 H Creatinine 3.66 H Glucose 186 H Alkaline Phosphatase 133 H - Diagnostic Findings Chest x-ray: report reviewed, image reviewed Additional studies: Chest ultrasound reviewed Assessment and Plan Plan: Assessment: #1. Large left-sided pleural effusion, with secondary dyspnea, and orthopnea #2. History of left-sided pleural effusion in 2017, patient underwent thoracentesis with negative cytology #3. Acute exacerbation of chronic congestive heart failure with mildly reduced ejection fraction, current to the last echocardiogram from 2017 with documented EF between 50-55% #4. Acute kidney injury #5. Chronic kidney disease stage IV #6. Chronic atrial fibrillation, not on anticoagulation related to history of GI bleeding, patient underwent EGD and total colonoscopy which showed mild gastritis and duodenitis, sigmoid diverticulosis, with internal hemorrhoids #7. Lifetime nonsmoker #8. Diabetes mellitus type II #9. Hypertension #10. Previous episode of pneumonia Plan: We will start the patient on IV Lasix, 40 mg every 8 hours, will reorder home meds, cardiology is following, ultrasound of the chest was reviewed and 11.1 cm fluid pocket on the left. We will obtain follow-up chest x-ray in the morning, probably to proceed with the left-sided thoracentesis tomorrow with Dr. Chery. We'll order breathing treatments on an as-needed basis, no fever or chills, or cough and congestion and dyspnea likely related to acute exacerbation of CHF. All blood work tomorrow, CBC, BMP, serial troponins. Nephrology evaluation is pending, daily weights, accurate I&O's. We'll continue to follow I performed a history & physical examination of the patient and discussed their management with my nurse practitioner, Brandy Flynn. I reviewed the nurse practitioner's note and agree with the documented findings and plan of care. Lung sounds are positive for diminished breath sounds on left base. The findings and the impression was discussed with the patient. I attest to the documentation by the nurse practitioner. Time with Patient: Greater than 30
[2018-10-16] MEDS: FUROSEMIDE 10 MG/ML 4 ML VIAL IV SCH ×2 (16:38→23:28)
[2018-10-16 16:42] LABS: Glucose,Whole Blood 179 mg/dL (75-99)
[2018-10-16] MEDS: INSULIN ASPART (NovoLOG) 100 UNIT/ML VIAL SQ SCH ×2 (17:21→22:05)
[2018-10-16 18:03] LABS: Glucose,Whole Blood 191 mg/dL (75-99)
[2018-10-16 20:19] LABS: Glucose,Whole Blood 183 mg/dL (75-99)
[2018-10-16] MEDS: METOPROLOL TARTRATE 25 MG TAB PO SCH (22:05)
[2018-10-17 03:30] LABS: HCT 29.6 % (34.0-46.0); HGB 9.2 gm/dL (11.4-16.0); Hypochromasia Slight; MCH 29.2 pg (25.0-35.0); MCV 94.3 fL (80.0-100.0); Mean Platelet Volume 8.7; Platelet Count 235 k/uL (150-450); RBC 3.14 m/uL (3.80-5.40); RDW 13.6 % (11.5-15.5); WBC 7.4 k/uL (3.8-10.6)
[2018-10-17 03:39] LABS: Potassium 4.3 mmol/L (3.5-5.1)
[2018-10-17 06:42] LABS: Glucose,Whole Blood 197 mg/dL (75-99)
--- NOTE | 2018-10-17 07:57 | XR ---
EXAMINATION TYPE: XR chest 2V DATE OF EXAM: 10/17/2018 COMPARISON: Prior chest x-ray 10/16/2018 HISTORY: Pleural effusion TECHNIQUE: Frontal and lateral views of the chest are obtained. FINDINGS: Pleural parenchymal changes are stable. Aorta is dense. Heart is secured but may be enlarg ed. No pneumothorax. Suspect some prominence of interstitium in the right chest. IMPRESSION: Large left pleural effusion. There is likely associated atelectasis, correlate to exclud e pneumonia, follow-up to exclude underlying mass. There may be component of interstitial edema.
[2018-10-17] MEDS: FUROSEMIDE 10 MG/ML 4 ML VIAL IV SCH (08:25)
[2018-10-17] MEDS: METOPROLOL TARTRATE 25 MG TAB PO SCH ×2 (08:25→21:35)
[2018-10-17] MEDS: POTASSIUM CHLORIDE ER 20 MEQ TAB.ER PO SCH (08:25)
[2018-10-17] MEDS: CHOLECALCIFEROL 1,000 UNIT TAB PO SCH (08:25)
[2018-10-17] MEDS ORDERED: NON-FORMULARY DRUG (Biotin [Biotin] 5 MG) PO SCH (09:00)
[2018-10-17] MEDS: INSULIN ASPART (NovoLOG) 100 UNIT/ML VIAL SQ SCH ×4 (09:18→21:34)
--- NOTE | 2018-10-17 09:32 | P.NPCON ---
History of Present Illness - Reason for Consult acute renal failure, chronic renal failure - History of Present Illness Reason for consultation: Acute kidney injury on chronic kidney disease. History of present illness: Patient is a 82-year-old female seen in renal consultation for acute kidney injury on chronic kidney disease. Patient was seen in the observation unit. Recently the patient's renal function has deteriorated. In November 2017 her creatinine was 1.7 and June 2018 and was 2.9. It is now in the range of 3.63.7. Patient has history of diabetes. She also has history of diastolic CHF with moderate pulmonary hypertension. Patient presented to the hospital with dyspnea. Patient states his been going on for the last 2 weeks. She is noted to have a significant left-sided pleural effusion. She scheduled for thoracentesis today. She admits to good urine output. No hematuria or dysuria. No vomiting or diarrhea. Oral intake is fair. She is currently maintained IV Lasix 40 mg 3 times daily. Hemodynamically she stable although blood pressure was on the lower side this morning. Vital signs are stable. General: The patient appeared well nourished and normally developed. HEENT: Head exam is unremarkable. Neck is without jugular venous distension. LUNGS: Breath sounds decreased. HEART: Rate and Rhythm are regular. First and second heart sounds normal. No murmurs, rubs or gallops. ABDOMEN: Abdominal exam reveals normal bowel sounds. Non-tender and non- distended. EXTREMITITES: 2+ edema. Past Medical History Past Medical History: Atrial Fibrillation, Heart Failure, Diabetes Mellitus, Hypertension, Osteoarthritis (OA), Pneumonia Additional Past Medical History / Comment(s): MURMUR. Diarrhea X last month. History of Any Multi-Drug Resistant Organisms: None Reported Past Surgical History: Section, Cholecystectomy Past Anesthesia/Blood Transfusion Reactions: No Reported Reaction Past Psychological History: No Psychological Hx Reported Smoking Status: Never smoker Past Alcohol Use History: None Reported Past Drug Use History: None Reported - Past Family History Father Additional Family Medical History / Comment(s): IN HIS 20'S WAS ELECTROCUTED Mother Family Medical History: Cancer Additional Family Medical History / Comment(s): LEUKEMIA Daughter(s) Family Medical History: Cancer Additional Family Medical History / Comment(s): Uterine cancer Medications and Allergies Home Medications Medication Instructions Recorded Confirmed Type Insulin Glulisine [Apidra] See Protocol SQ AC-BID 07/09/16 10/16/18 History Furosemide [Lasix] 40 mg PO BID #30 tab 07/19/16 10/16/18 Rx Potassium Chloride ER [K-Dur 20] 20 meq PO DAILY #30 tab.er.prt 07/19/16 10/16/18 Rx Insulin Glargine,Hum.rec.anlog See Protocol SQ HS 03/06/18 10/16/18 History [Lantus Solostar] Kelp 1 tab PO DAILY 03/06/18 10/16/18 History Biotin 5 mg PO DAILY 10/16/18 10/16/18 History Cholecalciferol (Vitamin D3) 2,000 unit PO DAILY 10/16/18 10/16/18 History [Vitamin D3] Metoprolol Tartrate [Lopressor] 25 mg PO BID 10/16/18 10/16/18 History Ubidecarenone [Co Q-10] 100 mg PO DAILY 10/16/18 10/16/18 History amLODIPine [Norvasc] 5 mg PO DAILY 10/16/18 10/16/18 History Allergies Allergy/AdvReac Type Severity Reaction Status Date / Time Penicillins Allergy Rash/Hives Verified 10/16/18 12:01 orange juice AdvReac Nausea Verified 10/16/18 12:01 Physical Exam Vitals: Vital Signs Temp Pulse Pulse Resp BP BP Pulse Ox 10/17/18 07:15 97.8 F 75 18 96/67 95 10/17/18 05:02 97.4 F L 76 16 129/86 98 10/16/18 23:55 97.4 F L 76 16 129/86 98 10/16/18 19:21 97.5 F L 69 15 107/67 99 10/16/18 16:00 83 16 10/16/18 15:19 97.7 F 83 16 130/65 96 10/16/18 13:26 72 18 105/65 96 10/16/18 12:26 67 18 128/55 93 L 10/16/18 12:19 20 10/16/18 11:36 97.7 F 88 22 121/66 94 L Intake and Output 10/16/18 10/17/18 10/17/18 22:59 06:59 14:59 Intake Total 350 100 Output Total 400 Balance -50 100 Intake: Oral 350 Other 100 Output: Urine 400 Other: Voiding Method Toilet Toilet # Bowel Movements 1 Weight 72.9 kg Results - Lab Results Most recent lab results Calcium 9.0 mg/dL (8.4-10.2) 10/17/18 02:49 Magnesium 2.2 mg/dL (1.6-2.3) 10/16/18 12:15 10/17/18 02:49 10/17/18 02:49 Assessment and Plan Plan: Assessment: 1. Acute kidney injury secondary to ATN secondary to cardiorenal syndrome. There is also concern for progression of underlying chronic kidney disease. Creatinine today is 3.57. Ultrasound from last month revealed no evidence of hydronephrosis. 2. Chronic kidney disease stage IV secondary to diabetic kidney disease and cardiorenal syndrome. 3. Diastolic CHF with moderate pulmonary hypertension. 4. Dyspnea secondary to volume overload. 5. Large left-sided pleural effusion schedule for thoracentesis today. 6. Insulin-dependent diabetes mellitus. 7. Hypertension with chronic kidney disease. Controlled. 8. Anemia of chronic kidney disease. Rule out iron deficiency. Plan: I will change Lasix to 60 mg IV twice daily. Low-salt diet. Check iron studies. Check urinalysis. Repeat electrolytes in the morning. Thank you for the consultation. I will continue to follow the patient with you during her hospital stay.
[2018-10-17 11:04] LABS: Appearance,Urine Clear (Clear); Bilirubin,Urine Negative (Negative); Blood,Urine Negative (Negative); Color,Urine Light Yellow; Glucose,Urine (UA) Negative (Negative); Hyaline Casts,Urine 7 /lpf (0-2); Ketones,Urine Negative (Negative); Leukocyte Esterase,Urine Moderate (Negative); Mucus,Urine Rare /hpf; Nitrite,Urine Negative (Negative); Protein,Urine Negative (Negative); RBC,Urine <1 /hpf (0-5); Specific Gravity,Urine 1.007 (1.001-1.035); Squamous Epithelial Cell,Urine <1 /hpf (0-4); Urobilinogen,Urine <2.0 mg/dL (<2.0); WBC,Urine 22 /hpf (0-5)
--- NOTE | 2018-10-17 11:28 | P.PN ---
Subjective Progress Note Date: 10/17/18 Principal diagnosis: Large left-sided pleural effusion This is a 82-year-old white female patient with past medical history of diabetes mellitus type 2, asthma atrial fibrillation, not on any chronic anticoagulation, chronic kidney disease, hypertension, osteoarthritis, previous episode of pneumonia. Patient is a lifetime nonsmoker, we had seen the patient in the past in 2017 for left-sided pleural effusion was thought to be related to congestive heart failure with diastolic dysfunction. Patient did have paracentesis back then by Dr. Mancuso, with negative cytologies. Patient came into the hospital today on 10/16/2018 with complaints of worsening shortness of breath, orthopnea, cough, phlegm production, but denied any fever or chills, denied any chest pain. Also had a significant lower extremity edema. Her symptoms started about a week ago and became progressively worse. Patient has not been able to sleep very well related to orthopnea. Does have a cough, occasional production of phlegm. No nausea, no vomiting, no abdominal pain, no lightheadedness or dizz iness. Chest x-ray was completed showing a large left pleural effusion with adjacent atelectasis and/or consolidation, and trace pleural effusion on the right. There was background COPD and possible mild pulmonary vascular congestion. EKG showed atrial fibrillation with PVCs, and controlled rate, no acute ischemic changes. She is afebrile, hemodynamically stable, room air pulse ox is 94%. Lab work showed white blood cell count of 8.4, hemoglobin of 10.4, platelet count is 258, INR is 1.0, serum sodium was 139, potassium is 5.1, chloride was 102, CO2 is 21, BUN is 50, creatinine is 3.6, with a GFR of 11, consistent with stage IV CKD. Troponin was negative 1, proBNP was 1590. She is seen in evaluation in the emergency department, she is resting on the gurney, acute distress unless she is laying down flat. She is at 2 L of oxygen with a pulse ox of 96%. We are consulted for possible thoracentesis for a large left- sided pleural effusion. On 10/17/2018 patient seen in follow-up in the observation unit. She is awake and alert, in no acute distress, she is on 2 L of oxygen with a pulse ox of 95- 98%, afebrile, short of breath with exertion, occasional cough, no phlegm production. Today's follow-up chest x-ray shows similar findings of a large left pleural effusion, patient was started on IV diuretics yesterday, the net fluid balance is difficult to estimate as the patient is voiding in the toilet. Weight is actually up today by 0.8 kg. Troponins were negative 3, today's labs show white blood cell, 7.4, hemoglobin of 9.2, serum sodium is 135, the rest of electrolytes were within normal limits, BUN is 61, and creatinine is 3.57. Patient underwent left thoracentesis with removal of 1 L of rose-colored fluid, appears to be a transudate in appearance, he was sent for pleural fluid analysis, cultures and cytology. Patient did start having left-sided chest discomfort, and thoracentesis had to be stopped at 1 L. we'll repeat stat chest x-ray following thoracentesis. Objective - Vital Signs Vital signs: Vital Signs Temp 97.8 F 10/17/18 07:15 Pulse 75 10/17/18 07:15 Resp 18 10/17/18 07:15 BP 96/67 10/17/18 07:15 Pulse Ox 95 10/17/18 07:15 Intake & Output 10/16/18 10/17/18 10/17/18 18:59 06:59 18:59 Intake Total 350 100 Output Total 400 Balance -50 100 Weight 72.121 kg 72.9 kg Intake: Oral 350 Other 100 Output: Urine 400 Other: Voiding Method Toilet Toilet Toilet # Bowel Movements 1 - Exam GENERAL EXAM: Alert, pleasant, 82-year-old white female, on 2 L of oxygen with a pulse ox of 96% comfortable in no apparent distress. HEAD: Normocephalic/atraumatic. EYES: Normal reaction of pupils, equal size. Conjunctiva pink, sclera white. NOSE: Clear with pink turbinates. THROAT: No erythema or exudates. NECK: No masses, no JVD, no thyroid enlargement, no adenopathy. CHEST: No chest wall deformity. Symmetrical expansion. LUNGS: Equal air entry with diminished breath sounds at the left lower base, and some scattered crackles CVS: Regular rate and rhythm, normal S1 and S2, no gallops, no murmurs, no rubs ABDOMEN: Soft, nontender. No hepatosplenomegaly, normal bowel sounds, no guarding or rigidity. EXTREMITIES: No clubbing, 2+ lower extremity edema, no cyanosis, 2+ pulses and upper and lower extremities. MUSCULOSKELETAL: Muscle strength and tone normal. SPINE: No scoliosis or deformity SKIN: No rashes CENTRAL NERVOUS SYSTEM: Alert and oriented -3. No focal deficits, tone is normal in all 4 extremities. PSYCHIATRIC: Alert and oriented -3. Appropriate affect. Intact judgment and insight. - Labs CBC & Chem 7: 10/17/18 02:49 10/17/18 02:49 Labs: Abnormal Lab Results - Last 24 Hours (Table) 10/16/18 10/16/18 10/16/18 Range/Units 12:15 12:15 16:40 RBC 3.60 L (3.80-5.40) m/uL Hgb 10.4 L (11.4-16.0) gm/dL Hct 33.7 L (34.0-46.0) % MCHC 30.9 L (31.0-37.0) g/dL Lymphocytes # 0.8 L (1.0-4.8) k/uL Sodium (137-145) mmol/L Carbon Dioxide 21 L (22-30) mmol/L BUN 58 H (7-17) mg/dL Creatinine 3.66 H (0.52-1.04) mg/dL Glucose 186 H (74-99) mg/dL POC Glucose (mg/dL) 179 H (75-99) mg/dL Alkaline Phosphatase 133 H (38-126) U/L Ur Leukocyte Esterase (Negative) Urine WBC (0-5) /hpf Hyaline Casts (0-2) /lpf Urine Mucus (None) /hpf 10/16/18 10/16/18 10/17/18 Range/Units 18:00 20:17 02:49 RBC 3.14 L (3.80-5.40) m/uL Hgb 9.2 L (11.4-16.0) gm/dL Hct 29.6 L (34.0-46.0) % MCHC (31.0-37.0) g/dL Lymphocytes # (1.0-4.8) k/uL Sodium (137-145) mmol/L Carbon Dioxide (22-30) mmol/L BUN (7-17) mg/dL Creatinine (0.52-1.04) mg/dL Glucose (74-99) mg/dL POC Glucose (mg/dL) 191 H 183 H (75-99) mg/dL Alkaline Phosphatase (38-126) U/L Ur Leukocyte Esterase (Negative) Urine WBC (0-5) /hpf Hyaline Casts (0-2) /lpf Urine Mucus (None) /hpf 10/17/18 10/17/18 10/17/18 Range/Units 02:49 06:40 10:32 RBC (3.80-5.40) m/uL Hgb (11.4-16.0) gm/dL Hct (34.0-46.0) % MCHC (31.0-37.0) g/dL Lymphocytes # (1.0-4.8) k/uL Sodium 135 L (137-145) mmol/L Carbon Dioxide (22-30) mmol/L BUN 61 H (7-17) mg/dL Creatinine 3.57 H (0.52-1.04) mg/dL Glucose 191 H (74-99) mg/dL POC Glucose (mg/dL) 197 H (75-99) mg/dL Alkaline Phosphatase (38-126) U/L Ur Leukocyte Esterase Moderate H (Negative) Urine WBC 22 H (0-5) /hpf Hyaline Casts 7 H (0-2) /lpf Urine Mucus Rare H (None) /hpf Assessment and Plan Plan: Assessment: #1. Large left-sided pleural effusion, with secondary dyspnea, and orthopnea, status post left-sided thoracentesis would removal of 1 L of pleural fluid #2. History of left-sided pleural effusion in 2017, patient underwent thoracentesis with negative cytology #3. Acute exacerbation of chronic congestive heart failure with mildly reduced ejection fraction, current to the last echocardiogram from 2017 with documented EF between 50-55% #4. Acute kidney injury #5. Chronic kidney disease stage IV #6. Chronic atrial fibrillation, not on anticoagulation related to history of GI bleeding, patient underwent EGD and total colonoscopy which showed mild gastritis and duodenitis, sigmoid diverticulosis, with internal hemorrhoids #7. Lifetime nonsmoker #8. Diabetes mellitus type II #9. Hypertension #10. Previous episode of pneumonia Plan: Continue with Lasix, patient underwent left thoracentesis would removal 1 L of pleural fluid, which was sent for pleural fluid analysis, cytology and cultures. Transudate in appearance. No fever or chills, and stable oxygenation on 2 L of oxygen. Nephrology is following. Stat chest x-ray following thoracentesis. We'll continue to follow I performed a history & physical examination of the patient and discussed their management with my nurse practitioner, Brandy Flynn. I reviewed the nurse practitioner's note and agree with the documented findings and plan of care. Lung sounds are positive for diminished breath sounds on left base. The findings and the impression was discussed with the patient. I attest to the documentation by the nurse practitioner. Time with Patient: Less than 30
--- NOTE | 2018-10-17 11:35 | XR ---
EXAMINATION TYPE: XR chest 1V DATE OF EXAM: 10/17/2018 COMPARISON: Prior chest x-ray 10/17/2018 at earlier time. HISTORY: Status post left thoracentesis TECHNIQUE: Single frontal view of the chest is obtained. FINDINGS: Interval improved visualization of the left upper lobe. There is persistent retrocardiac d ensity with obscured left hemidiaphragm. No pneumothorax. Interstitium is increased. Heart is likely enlarged. Aorta is dense. IMPRESSION: No evident complication status post thoracentesis. Correlate for pulmonary venous hypert ension and interstitial edema. Additional follow-up recommended. Left lower lobe atelectasis versus e serge or pneumonia, follow-up to resolution.
[2018-10-17 11:42] LABS: Glucose,Whole Blood 210 mg/dL (75-99)
[2018-10-17] MEDS ORDERED: HYDROcodone/APAP 5-325MG 1 EACH TAB PO PRN (12:02)
[2018-10-17 15:05] LABS: Appearance,BF Hazy; Color,BF Yellow; Nucleated Cells, Body Fluid 495 /uL; RBC, Body Fluid 3330 /uL
[2018-10-17 15:07] LABS: Mononuclear WBC,Body Fluid 96 %; Polynuclear WBC,Body Fluid 2 %; Total Cells Counted,Body Fluid 100
[2018-10-17 16:35] LABS: Iron Saturation 11.83 (12.00-45.00)
--- NOTE | 2018-10-17 16:40 | P.HPIM ---
History of Present Illness H&P Date: 10/16/18 Chief Complaint: Shortness of breath Patient is a 82-year-old female with a known history of chronic atrial fibrillation, not on anticoagulation due to GI bleed, diabetes type 2, hypertension, chronic kidney disease stage IV and osteoarthritis came to ER with complaints of worsening dyspnea for the past 1 week. Patient also follows with nephrology for her chronic kidney disease with Dr. Darden. Patient also developed cough without much sputum production. Denied any fever or chills. Patient has been having chest pressure worsens with cough. No radiation of the chest pain. No associated nausea vomiting or diarrhea. No diaphoresis. Patient is unable to sleep flat due to orthopnea. No headache or dizziness or lightheadedness. Chest x-ray showed left pleural effusion with adjacent atelectasis and/or consolidation. Trace effusion on the right. Background of COPD and possible mild pulmonary vascular congestion. Patient does take Lasix at home. EKG showed atrial fibrillation with PVCs. Rate is controlled... WBC 8.4, hemoglobin 10.4, INR 1.0, sodium 139 Duration 5.1, BUN 50 and creatinine 3.6 GFR 11. BNP 1590 Patient does have previous history of pleural effusion and thoracentesis was done fluid cytology was negative for malignant cells at the time. Review of Systems Constitutional: Patient denies any fever or chills . No generalized weakness or weight loss. Abdomen: Patient denied nausea vomiting and diarrhea and abdominal pain. Cardiovascular: Patient denies any chest pain or short of breath no p alpitations. Chest pressure. Respiratory: Congestion and shortness of breath. No sputum production. Neurologic: Patient denied any numbness or tingling headache. Musculoskeletal: Patient denies any complaints of joint swelling or deformity. Skin: Negative Psychiatric: Negative Endocrine: No heat or cold intolerance. No recent weight gain. Genitourinary: No dysuria or hematuria. All other 14 point ROS negative except the above Past Medical History Past Medical History: Atrial Fibrillation, Heart Failure, Diabetes Mellitus, Hypertension, Osteoarthritis (OA), Pneumonia Additional Past Medical History / Comment(s): MURMUR. Diarrhea X last month. History of Any Multi-Drug Resistant Organisms: None Reported Past Surgical History: Section, Cholecystectomy Past Anesthesia/Blood Transfusion Reactions: No Reported Reaction Past Psychological History: No Psychological Hx Reported Smoking Status: Never smoker Past Alcohol Use History: None Reported Past Drug Use History: None Reported - Past Family History Father Additional Family Medical History / Comment(s): IN HIS 20'S WAS ELECTROCUTED Mother Family Medical History: Cancer Additional Family Medical History / Comment(s): LEUKEMIA Daughter(s) Family Medical History: Cancer Additional Family Medical History / Comment(s): Uterine cancer Medications and Allergies Home Medications Medication Instructions Recorded Confirmed Type Insulin Glulisine [Apidra] See Protocol SQ AC-BID 07/09/16 10/16/18 History Furosemide [Lasix] 40 mg PO BID #30 tab 07/19/16 10/16/18 Rx Potassium Chloride ER [K-Dur 20] 20 meq PO DAILY #30 tab.er.prt 07/19/16 10/16/18 Rx Insulin Glargine,Hum.rec.anlog See Protocol SQ HS 03/06/18 10/16/18 History [Lantus Solostar] Kelp 1 tab PO DAILY 03/06/18 10/16/18 History Biotin 5 mg PO DAILY 10/16/18 10/16/18 History Cholecalciferol (Vitamin D3) 2,000 unit PO DAILY 10/16/18 10/16/18 History [Vitamin D3] Metoprolol Tartrate [Lopressor] 25 mg PO BID 10/16/18 10/16/18 History Ubidecarenone [Co Q-10] 100 mg PO DAILY 10/16/18 10/16/18 History amLODIPine [Norvasc] 5 mg PO DAILY 10/16/18 10/16/18 History Allergies Allergy/AdvReac Type Severity Reaction Status Date / Time Penicillins Allergy Rash/Hives Verified 10/16/18 12:01 orange juice AdvReac Nausea Verified 10/16/18 12:01 Physical Exam Vitals: Vital Signs Temp Pulse Pulse Resp BP BP Pulse Ox 10/16/18 15:19 97.7 F 83 16 130/65 96 10/16/18 13:26 72 18 105/65 96 10/16/18 12:26 67 18 128/55 93 L 10/16/18 12:19 20 10/16/18 11:36 97.7 F 88 22 121/66 94 L Intake and Output 10/16/18 10/16/18 10/16/18 06:59 14:59 22:59 Other: Weight 72.121 kg PHYSICAL EXAMINATION: Patient is lying in the bed comfortably, no acute distress, awake alert and oriented.. HEENT: Normocephalic. Neck is supple. Pupils reactive. Nostrils clear. Oral cavity is moist. Ears reveal no drainage. Neck reveals no JVD, carotid bruits, or thyromegaly. CHEST EXAMINATION: Trachea is central. Symmetrical expansion. Left basilar diminished air entry. Scattered rhonchi.. CARDIAC: Normal S1, S2 with no gallops. No murmurs . Irregular rhythm. ABDOMEN: Soft. Bowel sounds normal. No organomegaly. No abdominal bruits. Extremities: Trace edema. No clubbing or cyanosis Neurologically awake, alert, oriented x3 with well-coordinated movements. No focal deficits noted Skin: No rash or skin lesions. Psychiatric: Coperative. Nonsuicidal Musculoskeletal: No joint swelling or deformity. Normal range of motion. Results CBC & Chem 7: 10/17/18 02:49 10/17/18 02:49 Labs: Abnormal Lab Results - Last 24 Hours (Table) 10/16/18 10/16/18 Range/Units 12:15 12:15 RBC 3.60 L (3.80-5.40) m/uL Hgb 10.4 L (11.4-16.0) gm/dL Hct 33.7 L (34.0-46.0) % MCHC 30.9 L (31.0-37.0) g/dL Lymphocytes # 0.8 L (1.0-4.8) k/uL Carbon Dioxide 21 L (22-30) mmol/L BUN 58 H (7-17) mg/dL Creatinine 3.66 H (0.52-1.04) mg/dL Glucose 186 H (74-99) mg/dL Alkaline Phosphatase 133 H (38-126) U/L Thrombosis Risk Factor Assmnt - DVT/VTE Prophylaxis DVT/VTE Prophylaxis: Pharmacologic Prophylaxis ordered - Choose All That Apply Any of the Below Risk Factors Present?: Yes Each Factor Represents 1 point: Obesity (BMI >25) Other Risk Factors: Yes Each Risk Factor Represents 3 Points: Age 75 years or older Other congenital or acquired thrombophilia - If yes, enter type in comment: No Thrombosis Risk Factor Assessment Total Risk Factor Score: 4 Thrombosis Risk Factor Assessment Level: Moderate Risk Assessment and Plan Assessment: Worsening Dyspnea secondary to large left pleural effusion. Acute on chronic kidney disease stage IV Acute on chronic CHF with diastolic dysfunction. Ejection fraction 50-55% Diabetes type 2 insulin-dependent Hypertension Chronic atrial fibrillation not on and accommodation due to GI bleed history. History of left pleural effusion and 2017 status post thoracentesis. Pleural cytology showed no malignant cells. DVT prophylaxis. Plan: Patient will be continued on breathing treatments and IV Lasix. Monitor renal function. Ultrasound of the chest was ordered. Possible thoracentesis by pulmonary. Pulmonary and nephrology will be consulted. Continue with home medications and follow closely. Further conditions based on the clinical course. Prognosis is guarded. Discussed with her caregiver/daughter at bedside in detail. Time with Patient: Greater than 30
[2018-10-17 17:08] LABS: Glucose,Whole Blood 199 mg/dL (75-99)
[2018-10-17 20:11] LABS: Total Protein, Body Fluid 1886 mg/dL
[2018-10-17 21:23] LABS: Glucose,Whole Blood 209 mg/dL (75-99)
[2018-10-17] MEDS: FUROSEMIDE 10 MG/ML 10 ML VIAL IV SCH (21:35)
[2018-10-17 23:40] VITALS: PULSE 67
[2018-10-18 06:50] LABS: Glucose,Whole Blood 156 mg/dL (75-99)
--- NOTE | 2018-10-18 07:56 | P.PN ---
Subjective Patient is seen in follow-up for acute kidney injury on chronic kidney disease. In November 2017 her creatinine was 1.7 and June 2018 and was 2.9. It is now in the range of 3.6-3.7. Patient presented with dyspnea. She was noted to have large left-sided pleural effusion. She underwent thoracentesis yesterday with 1 L drained. She feels better today. Urine output is good. No vomiting or diarrhea. Vital signs are stable. General: The patient appeared well nourished and normally developed. HEENT: Head exam is unremarkable. Neck is without jugular venous distension. LUNGS: Breath sounds decreased. HEART: Rate and Rhythm are regular. First and second heart sounds normal. No murmurs, rubs or gallops. ABDOMEN: Abdominal exam reveals normal bowel sounds. Non-tender and non- distended. No evidence of peritonitis. EXTREMITITES: 1+ edema. Objective - Vital Signs Vital signs: Vital Signs Temp 97.6 F 10/17/18 23:40 Pulse 67 10/17/18 23:40 Resp 16 10/18/18 04:00 BP 105/55 10/17/18 23:40 Pulse Ox 99 10/17/18 23:40 Intake & Output 10/17/18 10/18/18 10/18/18 18:59 06:59 18:59 Intake Total 972 Output Total 100 600 Balance 872 -600 Intake: Oral 472 Other 500 Output: Urine 100 600 Other: Voiding Method Toilet - Labs CBC & Chem 7: 10/17/18 02:49 10/17/18 02:49 Labs: Abnormal Lab Results - Last 24 Hours (Table) 10/17/18 10/17/18 10/17/18 Range/Units 02:49 10:32 11:41 POC Glucose (mg/dL) 210 H (75-99) mg/dL Iron 33 L (50-170) ug/dL Iron Saturation 11.83 L (12.00-45.00) Ur Leukocyte Esterase Moderate H (Negative) Urine WBC 22 H (0-5) /hpf Hyaline Casts 7 H (0-2) /lpf Urine Mucus Rare H (None) /hpf 10/17/18 10/17/18 10/18/18 Range/Units 16:36 21:22 06:46 POC Glucose (mg/dL) 199 H 209 H 156 H (75-99) mg/dL Iron (50-170) ug/dL Iron Saturation (12.00-45.00) Ur Leukocyte Esterase (Negative) Urine WBC (0-5) /hpf Hyaline Casts (0-2) /lpf Urine Mucus (None) /hpf Microbiology - Last 24 Hours (Table) 10/17/18 10:00 Gram Stain - Preliminary Pleural Fluid Body Fluid Culture - Preliminary 10/17/18 10:00 Acid Fast Bacilli Smear - Final Pleural Fluid Acid Fast Bacilli Culture - Preliminary 10/17/18 10:00 Fungal Culture - Preliminary Pleural Fluid Assessment and Plan Plan: Assessment: 1. Acute kidney injury secondary to ATN secondary to cardiorenal syndrome. There is also concern for progression of underlying chronic kidney disease. Creatinine 3.57 as of yesterday. Ultrasound from last month revealed no evidence of hydronephrosis. No proteinuria on UA. 2. Chronic kidney disease stage IV secondary to cardiorenal syndrome. 3. Diastolic CHF with moderate pulmonary hypertension. 4. Dyspnea secondary to volume overload. 5. Large left-sided pleural effusion status post thoracentesis with 1 L removed. 6. Insulin-dependent diabetes mellitus. 7. Hypertension with chronic kidney disease. Controlled. 8. Anemia of chronic kidney disease. Iron deficiency noted. Plan: Continue IV Lasix 60 mg IV twice daily - can be transitioned over to Lasix 40 mg orally twice daily upon discharge. Low-salt diet. IV iron 3 doses. First dose today. Repeat BMP in 2-3 days postdischarge and follow up outpatient in the next 1-2 weeks.
[2018-10-18 08:01] VITALS: BP 100/61; RESP 17; TEMP 97.5
[2018-10-18] MEDS: INSULIN ASPART (NovoLOG) 100 UNIT/ML VIAL SQ SCH (08:49)
[2018-10-18] MEDS: POTASSIUM CHLORIDE ER 20 MEQ TAB.ER PO SCH (08:56)
[2018-10-18] MEDS: CHOLECALCIFEROL 1,000 UNIT TAB PO SCH (08:56)
[2018-10-18] MEDS: FUROSEMIDE 10 MG/ML 10 ML VIAL IV SCH (08:56)
[2018-10-18] MEDS: METOPROLOL TARTRATE 25 MG TAB PO SCH (08:56)
[2018-10-18] MEDS ORDERED: SODIUM FERRIC GLUCONAT-SUCROSE 125 MG in SODIUM CHLORIDE 0.9% 100 ML IVPB SCH (09:00)
--- NOTE | 2018-10-18 10:29 | P.PN ---
Subjective Progress Note Date: 10/17/18 Principal diagnosis: Left-sided pleural effusion Acute on chronic kidney disease stage IV Patient is a 82-year-old female with a known history of chronic atrial fibrillation, not on anticoagulation due to GI bleed, diabetes type 2, hypertension, chronic kidney disease stage IV and osteoarthritis came to ER with complaints of worsening dyspnea for the past 1 week. Patient also follows with nephrology for her chronic kidney disease with Dr. Darden. Patient also developed cough without much sputum production. Denied any fever or chills. Patient has been having chest pressure worsens with cough. No radiation of the chest pain. No associated nausea vomiting or diarrhea. No diaphoresis. Patient is unable to sleep flat due to orthopnea. No headache or dizziness or l ightheadedness. Chest x-ray showed left pleural effusion with adjacent atelectasis and/or consolidation. Trace effusion on the right. Background of COPD and possible mild pulmonary vascular congestion. Patient does take Lasix at home. EKG showed atrial fibrillation with PVCs. Rate is controlled... WBC 8.4, hemoglobin 10.4, INR 1.0, sodium 139 Duration 5.1, BUN 50 and creatinine 3.6 GFR 11. BNP 1590 Patient does have previous history of pleural effusion and thoracentesis was done fluid cytology was negative for malignant cells at the time. 10/17/2018 Patient underwent thoracentesis with 1 L of transudative fluid likely. Currently saturating at 2 L nausea cannula. Patient says that her breathing is slightly better after thoracentesis. Otherwise no complaints of chest pain. Troponin 3 negative. BUN 61 and creatinine 3.57. No fever no chills. No nausea vomiting or abdominal pain. Follow-up with final pulmonary and nephrology recommendations. Anticipate discharge in next 24-48 hours with more clinical improvement. Current medications reviewed. Objective - Vital Signs Vital signs: Vital Signs Temp 97.4 F L 10/17/18 15:56 Pulse 72 10/17/18 15:56 Resp 18 10/17/18 15:56 BP 97/70 10/17/18 15:56 Pulse Ox 100 10/17/18 15:56 Intake & Output 10/16/18 10/17/18 10/17/18 18:59 06:59 18:59 Intake Total 350 736 Output Total 400 100 Balance -50 636 Weight 72.121 kg 72.9 kg Intake: Oral 350 236 Other 500 Output: Urine 400 100 Other: Voiding Method Toilet Toilet Toilet # Bowel Movements 1 - Exam PHYSICAL EXAMINATION: Patient is lying in the bed comfortably, no acute distress, awake alert and or iented.. HEENT: Normocephalic. Neck is supple. Pupils reactive. Nostrils clear. Oral cavity is moist. Ears reveal no drainage. Neck reveals no JVD, carotid bruits, or thyromegaly. CHEST EXAMINATION: Trachea is central. Symmetrical expansion. Bibasilar diminished air entry left greater than right. Basilar crackles.. CARDIAC: Normal S1, S2 with no gallops. No murmurs ABDOMEN: Soft. Bowel sounds normal. No organomegaly. No abdominal bruits. Extremities: reveal no edema. No clubbing or cyanosis Neurologically awake, alert, oriented x3 with well-coordinated movements. No focal deficits noted Skin: No rash or skin lesions. Psychiatric: Coperative. Nonsuicidal Musculoskeletal: No joint swelling or deformity. Normal range of motion. - Labs CBC & Chem 7: 10/17/18 02:49 10/17/18 02:49 Labs: Abnormal Lab Results - Last 24 Hours (Table) 10/16/18 10/16/18 10/16/18 Range/Units 16:40 18:00 20:17 RBC (3.80-5.40) m/uL Hgb (11.4-16.0) gm/dL Hct (34.0-46.0) % Sodium (137-145) mmol/L BUN (7-17) mg/dL Creatinine (0.52-1.04) mg/dL Glucose (74-99) mg/dL POC Glucose (mg/dL) 179 H 191 H 183 H (75-99) mg/dL Iron (50-170) ug/dL Iron Saturation (12.00-45.00) Ur Leukocyte Esterase (Negative) Urine WBC (0-5) /hpf Hyaline Casts (0-2) /lpf Urine Mucus (None) /hpf 10/17/18 10/17/18 10/17/18 Range/Units 02:49 02:49 02:49 RBC 3.14 L (3.80-5.40) m/uL Hgb 9.2 L (11.4-16.0) gm/dL Hct 29.6 L (34.0-46.0) % Sodium 135 L (137-145) mmol/L BUN 61 H (7-17) mg/dL Creatinine 3.57 H (0.52-1.04) mg/dL Glucose 191 H (74-99) mg/dL POC Glucose (mg/dL) (75-99) mg/dL Iron 33 L (50-170) ug/dL Iron Saturation 11.83 L (12.00-45.00) Ur Leukocyte Esterase (Negative) Urine WBC (0-5) /hpf Hyaline Casts (0-2) /lpf Urine Mucus (None) /hpf 10/17/18 10/17/18 10/17/18 Range/Units 06:40 10:32 11:41 RBC (3.80-5.40) m/uL Hgb (11.4-16.0) gm/dL Hct (34.0-46.0) % Sodium (137-145) mmol/L BUN (7-17) mg/dL Creatinine (0.52-1.04) mg/dL Glucose (74-99) mg/dL POC Glucose (mg/dL) 197 H 210 H (75-99) mg/dL Iron (50-170) ug/dL Iron Saturation (12.00-45.00) Ur Leukocyte Esterase Moderate H (Negative) Urine WBC 22 H (0-5) /hpf Hyaline Casts 7 H (0-2) /lpf Urine Mucus Rare H (None) /hpf Assessment and Plan Assessment: Worsening Dyspnea secondary to large left pleural effusion. Status post thoracentesis. Acute on chronic kidney disease stage IV Acute on chronic CHF with diastolic dysfunction. Ejection fraction 50-55% Diabetes type 2 insulin-dependent Hypertension Chronic atrial fibrillation not on and accommodation due to GI bleed history. History of left pleural effusion and 2017 status post thoracentesis. Pleural cytology showed no malignant cells. DVT prophylaxis. Plan: Patient will be continued on breathing treatments and IV Lasix. Monitor renal function. Ultrasound of the chest was ordered. Possible thoracentesis by pulmonary. Pulmonary and nephrology will be consulted. Continue with home medications and follow closely. Further conditions based on the clinical course. Prognosis is guarded. Discussed with her caregiver/daughter at bedside in detail. Time with Patient: Greater than 30
--- NOTE | 2018-10-18 12:26 | P.PN ---
Subjective Progress Note Date: 10/18/18 Principal diagnosis: Large left-sided pleural effusion This is a 82-year-old white female patient with past medical history of diabetes mellitus type 2, asthma atrial fibrillation, not on any chronic anticoagulation, chronic kidney disease, hypertension, osteoarthritis, previous episode of pneumonia. Patient is a lifetime nonsmoker, we had seen the patient in the past in 2017 for left-sided pleural effusion was thought to be related to congestive heart failure with diastolic dysfunction. Patient did have paracentesis back then by Dr. Mancuso, with negative cytologies. Patient came into the hospital today on 10/16/2018 with complaints of worsening shortness of breath, orthopnea, cough, phlegm production, but denied any fever or chills, denied any chest pain. Also had a significant lower extremity edema. Her symptoms started about a week ago and became progressively worse. Patient has not been able to sleep very well related to orthopnea. Does have a cough, occasional production of phlegm. No nausea, no vomiting, no abdominal pain, no lightheadedness or dizz iness. Chest x-ray was completed showing a large left pleural effusion with adjacent atelectasis and/or consolidation, and trace pleural effusion on the right. There was background COPD and possible mild pulmonary vascular congestion. EKG showed atrial fibrillation with PVCs, and controlled rate, no acute ischemic changes. She is afebrile, hemodynamically stable, room air pulse ox is 94%. Lab work showed white blood cell count of 8.4, hemoglobin of 10.4, platelet count is 258, INR is 1.0, serum sodium was 139, potassium is 5.1, chloride was 102, CO2 is 21, BUN is 50, creatinine is 3.6, with a GFR of 11, consistent with stage IV CKD. Troponin was negative 1, proBNP was 1590. She is seen in evaluation in the emergency department, she is resting on the gurney, acute distress unless she is laying down flat. She is at 2 L of oxygen with a pulse ox of 96%. We are consulted for possible thoracentesis for a large left- sided pleural effusion. On 10/17/2018 patient seen in follow-up in the observation unit. She is awake and alert, in no acute distress, she is on 2 L of oxygen with a pulse ox of 95- 98%, afebrile, short of breath with exertion, occasional cough, no phlegm production. Today's follow-up chest x-ray shows similar findings of a large left pleural effusion, patient was started on IV diuretics yesterday, the net fluid balance is difficult to estimate as the patient is voiding in the toilet. Weight is actually up today by 0.8 kg. Troponins were negative 3, today's labs show white blood cell, 7.4, hemoglobin of 9.2, serum sodium is 135, the rest of electrolytes were within normal limits, BUN is 61, and creatinine is 3.57. Patient underwent left thoracentesis with removal of 1 L of rose-colored fluid, appears to be a transudate in appearance, he was sent for pleural fluid analysis, cultures and cytology. Patient did start having left-sided chest discomfort, and thoracentesis had to be stopped at 1 L. we'll repeat stat chest x-ray following thoracentesis. On 10/10/2018 patient seen in follow-up in the observation unit, she is breathing much easier today, she status post left-sided thoracentesis with removal of 800 mL of hazy yellow colored fluid, pleural fluid analysis is consistent with transudative of fluid. Pleural fluid cultures are still pending, cytology is pending. Follow-up chest x-ray yesterday showed left lower lobe atelectasis, and residual pleural effusion, interstitial edema. No new chest x-rays today. She has been diuresed, she is in negative fluid balance, lower extremity edema is improving, from pulmonary perspective patient stable for discharge home today on oral diuretics. Objective - Vital Signs Vital signs: Vital Signs Temp 97.5 F L 10/18/18 07:55 Pulse 67 10/18/18 07:55 Resp 17 10/18/18 08:00 BP 100/61 10/18/18 07:55 Pulse Ox 95 10/18/18 07:55 Intake & Output 10/17/18 10/18/18 10/18/18 18:59 06:59 18:59 Intake Total 972 Output Total 100 600 300 Balance 872 -600 -300 Intake: Oral 472 Other 500 Output: Urine 100 600 300 Other: Voiding Method Toilet Toilet # Voids 1 - Exam GENERAL EXAM: Alert, pleasant, 82-year-old white female, on 2 L of oxygen with a pulse ox of 96% comfortable in no apparent distress. HEAD: Normocephalic/atraumatic. EYES: Normal reaction of pupils, equal size. Conjunctiva pink, sclera white. NOSE: Clear with pink turbinates. THROAT: No erythema or exudates. NECK: No masses, no JVD, no thyroid enlargement, no adenopathy. CHEST: No chest wall deformity. Symmetrical expansion. LUNGS: Equal air entry with diminished breath sounds at the left lower base, and some scattered crackles CVS: Regular rate and rhythm, normal S1 and S2, no gallops, no murmurs, no rubs ABDOMEN: Soft, nontender. No hepatosplenomegaly, normal bowel sounds, no guarding or rigidity. EXTREMITIES: No clubbing, 2+ lower extremity edema, no cyanosis, 2+ pulses and upper and lower extremities. MUSCULOSKELETAL: Muscle strength and tone normal. SPINE: No scoliosis or deformity SKIN: No rashes CENTRAL NERVOUS SYSTEM: Alert and oriented -3. No focal deficits, tone is normal in all 4 extremities. PSYCHIATRIC: Alert and oriented -3. Appropriate affect. Intact judgment and insight. - Labs CBC & Chem 7: 10/17/18 02:49 10/17/18 02:49 Labs: Abnormal Lab Results - Last 24 Hours (Table) 10/17/18 10/17/18 10/17/18 Range/Units 02:49 16:36 21:22 POC Glucose (mg/dL) 199 H 209 H (75-99) mg/dL Iron 33 L (50-170) ug/dL Iron Saturation 11.83 L (12.00-45.00) 10/18/18 Range/Units 06:46 POC Glucose (mg/dL) 156 H (75-99) mg/dL Iron (50-170) ug/dL Iron Saturation (12.00-45.00) Microbiology - Last 24 Hours (Table) 10/17/18 10:00 Gram Stain - Preliminary Pleural Fluid Body Fluid Culture - Preliminary 10/17/18 10:00 Acid Fast Bacilli Smear - Final Pleural Fluid Acid Fast Bacilli Culture - Preliminary 10/17/18 10:00 Fungal Culture - Preliminary Pleural Fluid Assessment and Plan Plan: Assessment: #1. Large left-sided pleural effusion, with secondary dyspnea, and orthopnea, status post left-sided thoracentesis would removal of 1 L of pleural fluid, which was transudate of fluid, cytology and pleural fluid cultures are pending #2. History of left-sided pleural effusion in 2017, patient underwent t horacentesis with negative cytology #3. Acute exacerbation of chronic congestive heart failure with mildly reduced ejection fraction, current to the last echocardiogram from 2017 with documented EF between 50-55% #4. Acute kidney injury #5. Chronic kidney disease stage IV #6. Chronic atrial fibrillation, not on anticoagulation related to history of GI bleeding, patient underwent EGD and total colonoscopy which showed mild gastritis and duodenitis, sigmoid diverticulosis, with internal hemorrhoids #7. Lifetime nonsmoker #8. Diabetes mellitus type II #9. Hypertension #10. Previous episode of pneumonia Plan: Patient is doing well, breathing easier, yesterday's chest x-ray still had some residual fluid and atelectasis in the left base, likely she is feeling better, she has been diuresed, she is maintaining negative fluid balance. Lower extremity edema is improving, no new weight today. Renal profile today is relatively stable, would be on of 61 and creatinine is 3.57, nephrology is following. No Fever or chills, no cough or congestion, no complaints of dyspnea or chest pain, from pulmonary perspective patient is stable for discharge home today on oral diuretics I performed a history & physical examination of the patient and discussed their management with my nurse practitioner, Brandy Flynn. I reviewed the nurse practitioner's note and agree with the documented findings and plan of care. Lung sounds are positive for diminished breath sounds on left base. The findings and the impression was discussed with the patient. I attest to the documentation by the nurse practitioner. Time with Patient: Less than 30
--- NOTE | 2018-10-21 12:23 | PCN ---
PROCEDURE NOTE DATE OF SERVICE: 10/17/2018 PROCEDURE: Left thoracentesis. PREOPERATIVE DIAGNOSIS: Large left pleural effusion. POSTOPERATIVE DIAGNOSIS: Large left pleural effusion. There was a universal time-out was completed verifying correct patient, procedure, site, positioning , and implant (s) or special equipment if applicable. There was informed consent. Left posterior chest was marked by ultrasound guidance and appropriate fluid pocket was identified and marked. Patient was positioned, prepped and draped in usual sterile fashion. Lidocaine was used to anesthetize the area. A Thoracentesis catheter was introduced into the pleural space and fluid was removed. Blood loss was none. A chest x-ray following the procedure did not reveal a complication of the procedure. Total Fluid Removed: 1 L Color of Fluid: Light yellow fluid Fluid was sent for analysis including chemistry, microbiology and also cytology. Some of those results are still pending. Patient tolerated the procedure well and there were no complications. The procedure was done by myself Dr. Chery, assisted by nurse practitioner, Brandy Flynn. MMODL / IJN: [id number] /
== END 2018-10-18 11:55 | disposition home health service (06) | DRG 291 ==
LOC: EC 11:35 → 1SOBS 13:45 → OBSVTOIN 10-17 11:49
PROVIDERS: ADMIT Hospitalist; ATTEND Hospitalist
PROC: 0W9B3ZX Drainage of Left Pleural Cavity, Percutaneous Approach, Diagnostic (ICD-10-PCS; principal; 2018-10-17)
DX: I13.0 Hypertensive heart and chronic kidney disease with heart failure and stage 1 through stage 4 chronic kidney disease, or unspecified chronic kidney disease (principal); I50.33 Acute on chronic diastolic (congestive) heart failure; N17.0 Acute kidney failure with tubular necrosis; N18.4 Chronic kidney disease, stage 4 (severe); J98.11 Atelectasis; J91.8 Pleural effusion in other conditions classified elsewhere; E11.22 Type 2 diabetes mellitus with diabetic chronic kidney disease; I27.20 Pulmonary hypertension, unspecified; J44.9 Chronic obstructive pulmonary disease, unspecified; I48.2 Chronic atrial fibrillation; D63.1 Anemia in chronic kidney disease; E61.1 Iron deficiency; I49.3 Ventricular premature depolarization; M19.90 Unspecified osteoarthritis, unspecified site; K57.30 Diverticulosis of large intestine without perforation or abscess without bleeding; K29.70 Gastritis, unspecified, without bleeding; K29.80 Duodenitis without bleeding; K64.8 Other hemorrhoids; Z79.4 Long term (current) use of insulin; Z79.899 Other long term (current) drug therapy; Z88.0 Allergy status to penicillin; Z91.018 Allergy to other foods; Z87.01 Personal history of pneumonia (recurrent); Z87.19 Personal history of other diseases of the digestive system; Z90.49 Acquired absence of other specified parts of digestive tract; Z80.6 Family history of leukemia; Z80.49 Family history of malignant neoplasm of other genital organs
CPT/HCPCS: 36415; 71045; 71046; 76604; 80048; 80053; 81001; 82728; 82945; 83540; 83550; 83615; 83735; 83880; 84157; 84484; 85025; 85027; 85610; 85730; 87070; 87102; 87116; 87205; 87206; 87252; 87496; 87498; 87502; 87529; 87634; 87798; 88108; 88305; 89050; 93005; 99285

== ENCOUNTER 2018-11-30 09:53 | Observation (INO) | payer MEDICARE ==
--- NOTE | 2018-11-30 10:36 | ED ---
General Adult HPI - General Chief complaint: Shortness of Breath Stated complaint: SOB Time Seen by Provider: 11/30/18 10:01 Source: patient, family, RN notes reviewed Mode of arrival: wheelchair Limitations: physical limitation - History of Present Illness Initial comments: This an 82-year-old female presents emergency department with family chief comp laint of dyspnea since Sunday. Patient does have a history of CHF and was seen by PCP who stated that she had a large pleural effusion. She has had thoracentesis in the past. Patient denies any current chest pain or fever. She does have slight cough which is nonproductive. She does have swelling of her lower extremities. Patient denies any headache, dizziness, abdominal pain, nausea vomiting. Family is concerned that she is more weak than usual. - Related Data Home Medications Medication Instructions Recorded Confirmed Kelp 1 tab PO DAILY 03/06/18 11/30/18 Biotin 5 mg PO BID 10/16/18 11/30/18 Cholecalciferol (Vitamin D3) 2,000 unit PO DAILY 10/16/18 11/30/18 [Vitamin D3] Metoprolol Tartrate [Lopressor] 25 mg PO BID 10/16/18 11/30/18 Ubidecarenone [Co Q-10] 200 mg PO BID 10/16/18 11/30/18 Arjuna 1 tab PO DAILY 11/30/18 11/30/18 Primal Force Metabolic Rescue 1 tab PO DAILY 11/30/18 11/30/18 Vit C/E/Zn/Coppr/Lutein/Zeaxan 1 cap PO BID 11/30/18 11/30/18 [Preservision Areds 2 Softgel] amLODIPine [Norvasc] 5 mg PO DAILY 11/30/18 11/30/18 Previous Rx's Medication Instructions Recorded Furosemide [Lasix] 40 mg PO BID #30 tab 07/19/16 Potassium Chloride ER [K-Dur 20] 20 meq PO DAILY #30 tab.er.prt 07/19/16 Ferrous Sulfate [Feosol] 325 mg PO DAILY #30 tab 10/18/18 Allergies Allergy/AdvReac Type Severity Reaction Status Date / Time Penicillins Allergy Rash/Hives Verified 11/30/18 10:44 orange juice AdvReac Nausea Verified 11/30/18 10:44 Review of Systems ROS Statement: Those systems with pertinent positive or pertinent negative responses have been documented in the HPI. ROS Other: All systems not noted in ROS Statement are negative. Past Medical History Past Medical History: Atrial Fibrillation, Heart Failure, Diabetes Mellitus, Hypertension, Osteoarthritis (OA), Pneumonia Additional Past Medical History / Comment(s): MURMUR. Diarrhea History of Any Multi-Drug Resistant Organisms: None Reported Past Surgical History: Section, Cholecystectomy Past Anesthesia/Blood Transfusion Reactions: No Reported Reaction Past Psychological History: No Psychological Hx Reported Smoking Status: Never smoker Past Alcohol Use History: None Reported Past Drug Use History: None Reported - Past Family History Father Additional Family Medical History / Comment(s): IN HIS 20'S WAS ELECTROCUTED Mother Family Medical History: Cancer Additional Family Medical History / Comment(s): LEUKEMIA Daughter(s) Family Medical History: Cancer Additional Family Medical History / Comment(s): Uterine cancer General Exam Limitations: physical limitation General appearance: alert, in no apparent distress Head exam: Present: atraumatic, normocephalic, normal inspection Neck exam: Present: normal inspection, full ROM. Absent: tenderness, meningismus, lymphadenopathy Respiratory exam: Present: normal lung sounds bilaterally. Absent: respiratory distress, wheezes, rales, rhonchi, stridor Cardiovascular Exam: Present: regular rate, normal rhythm, normal heart sounds. Absent: systolic murmur, diastolic murmur, rubs, gallop, clicks GI/Abdominal exam: Present: soft, normal bowel sounds. Absent: distended, tenderness, guarding, rebound, rigid Extremities exam: Present: pedal edema Neurological exam: Present: alert, oriented X3, CN II-XII intact Skin exam: Present: warm, dry, intact, normal color. Absent: rash Course Vital Signs 11/30/18 11/30/18 11/30/18 09:58 11:13 11:23 Temperature 98.0 F Pulse Rate 75 69 73 Respiratory 24 Rate Blood Pressure 124/62 O2 Sat by Pulse 91 L Oximetry EKG Findings - EKG Comments: EKG Findings:: EKG 0.11:06 A. fib with rate of 83 QRS 54 QT/QTC 396/465 Medical Decision Making - Medical Decision Making 82-year-old female presents emergency Department chief complaint of dyspnea. Patient has a large effusion possible bilateral infiltrates I do not feel this is infectious that she is afebrile no leukocytosis a nonproductive cough. Patient had recurrent pleural effusions on left. Patient we treated with Lasix that time with consult pulmonology for thoracentesis. - Lab Data Result diagrams: 11/30/18 10:30 11/30/18 10:30 Lab Results 11/30/18 11/30/18 11/30/18 Range/Units 10:30 10:30 10:30 WBC 6.8 (3.8-10.6) k/uL RBC 3.73 L (3.80-5.40) m/uL Hgb 10.6 L (11.4-16.0) gm/dL Hct 33.8 L (34.0-46.0) % MCV 90.6 (80.0-100.0) fL MCH 28.6 (25.0-35.0) pg MCHC 31.5 (31.0-37.0) g/dL RDW 14.0 (11.5-15.5) % Plt Count 271 (150-450) k/uL Neutrophils % 79 % Lymphocytes % 10 % Monocytes % 6 % Eosinophils % 3 % Basophils % 0 % Neutrophils # 5.4 (1.3-7.7) k/uL Lymphocytes # 0.7 L (1.0-4.8) k/uL Monocytes # 0.4 (0-1.0) k/uL Eosinophils # 0.2 (0-0.7) k/uL Basophils # 0.0 (0-0.2) k/uL PT (9.0-12.0) sec INR (<1.2) APTT (22.0-30.0) sec Sodium 138 (137-145) mmol/L Potassium 3.8 (3.5-5.1) mmol/L Chloride 98 (98-107) mmol/L Carbon Dioxide 24 (22-30) mmol/L Anion Gap 16 mmol/L BUN 65 H (7-17) mg/dL Creatinine 3.41 H (0.52-1.04) mg/dL Est GFR (CKD-EPI)AfAm 14 (>60 ml/min/1.73 sqM) Est GFR (CKD-EPI)NonAf 12 (>60 ml/min/1.73 sqM) Glucose 111 H (74-99) mg/dL Calcium 9.5 (8.4-10.2) mg/dL Magnesium 2.2 (1.6-2.3) mg/dL Total Bilirubin 0.6 (0.2-1.3) mg/dL AST 22 (14-36) U/L ALT 20 (9-52) U/L Alkaline Phosphatase 109 (38-126) U/L Troponin I (0.000-0.034) ng/mL NT-Pro-B Natriuret Pep 2820 pg/mL Total Protein 7.6 (6.3-8.2) g/dL Albumin 4.1 (3.5-5.0) g/dL 11/30/18 11/30/18 Range/Units 10:30 10:30 WBC (3.8-10.6) k/uL RBC (3.80-5.40) m/uL Hgb (11.4-16.0) gm/dL Hct (34.0-46.0) % MCV (80.0-100.0) fL MCH (25.0-35.0) pg MCHC (31.0-37.0) g/dL RDW (11.5-15.5) % Plt Count (150-450) k/uL Neutrophils % % Lymphocytes % % Monocytes % % Eosinophils % % Basophils % % Neutrophils # (1.3-7.7) k/uL Lymphocytes # (1.0-4.8) k/uL Monocytes # (0-1.0) k/uL Eosinophils # (0-0.7) k/uL Basophils # (0-0.2) k/uL PT 10.3 (9.0-12.0) sec INR 1.0 (<1.2) APTT 24.3 (22.0-30.0) sec Sodium (137-145) mmol/L Potassium (3.5-5.1) mmol/L Chloride (98-107) mmol/L Carbon Dioxide (22-30) mmol/L Anion Gap mmol/L BUN (7-17) mg/dL Creatinine (0.52-1.04) mg/dL Est GFR (CKD-EPI)AfAm (>60 ml/min/1.73 sqM) Est GFR (CKD-EPI)NonAf (>60 ml/min/1.73 sqM) Glucose (74-99) mg/dL Calcium (8.4-10.2) mg/dL Magnesium (1.6-2.3) mg/dL Total Bilirubin (0.2-1.3) mg/dL AST (14-36) U/L ALT (9-52) U/L Alkaline Phosphatase (38-126) U/L Troponin I <0.012 (0.000-0.034) ng/mL NT-Pro-B Natriuret Pep pg/mL Total Protein (6.3-8.2) g/dL Albumin (3.5-5.0) g/dL Disposition Clinical Impression: Congestive heart failure, A-fib, Dyspnea, Pleural effusion, Renal failure Disposition: ADMITTED IP TO THIS HOSP Condition: Fair Referrals: Maritza Bee DO [Primary Care Provider] - 1-2 days
[2018-11-30 10:51] LABS: Basophils % (A) 0 %; Eosinophils # (A) 0.2 k/uL (0-0.7); Eosinophils % (A) 3 %; HCT 33.8 % (34.0-46.0); HGB 10.6 gm/dL (11.4-16.0); Lymphocytes # (A) 0.7 k/uL (1.0-4.8); Lymphocytes % (A) 10 %; MCH 28.6 pg (25.0-35.0); MCHC 31.5 g/dL (31.0-37.0); MCV 90.6 fL (80.0-100.0); Mean Platelet Volume 8.4; Monocytes # (A) 0.4 k/uL (0-1.0); Monocytes % (A) 6 %; Neutrophils # (A) 5.4 k/uL (1.3-7.7); Neutrophils % (A) 79 %; Platelet Count 271 k/uL (150-450); RBC 3.73 m/uL (3.80-5.40); WBC 6.8 k/uL (3.8-10.6)
[2018-11-30 10:56] LABS: Albumin 4.1 g/dL (3.5-5.0); Calcium 9.5 mg/dL (8.4-10.2); Magnesium 2.2 mg/dL (1.6-2.3); Potassium 3.8 mmol/L (3.5-5.1); Total Bilirubin 0.6 mg/dL (0.2-1.3); Total Protein 7.6 g/dL (6.3-8.2)
[2018-11-30] MEDS ORDERED: IPRATROPIUM-ALBUTEROL 3 ML NEB INHALATION STA (10:56)
[2018-11-30 10:59] LABS: Partial Thromboplastin Time 24.3 sec (22.0-30.0); Prothrombin Time 10.3 sec (9.0-12.0)
--- NOTE | 2018-11-30 11:02 | XR ---
EXAMINATION TYPE: XR chest 2V DATE OF EXAM: 11/30/2018 COMPARISON: 10/17/2018 TECHNIQUE: PA and lateral views submitted. HISTORY: Shortness of breath FINDINGS: Heart is enlarged and is atherosclerotic change aorta and arthropathy of the shoulders. Diffuse inter stitial pattern with bilateral effusion and consolidation greater on the left is similar to the prior exam. Hypertrophic and degenerative change of the spine. Suggestion of annular calcification. IMPRESSION: 1. Bilateral infiltrate and pleural effusion greater on the left. Correlate for pulmonary edema versu s pneumonia. Mucous plug or endobronchial lesion on the left in the differential diagnosis.
[2018-11-30] MEDS ORDERED: FUROSEMIDE 10 MG/ML 4 ML VIAL IV STA (11:24)
[2018-11-30] MEDS: IPRATROPIUM-ALBUTEROL 3 ML NEB INHALATION PRN ×2 (15:55→19:53)
[2018-11-30] MEDS: IOPAMIDOL-300 CONTRAST 30 ML VIAL (ORAL USE) PO PRN ×2 (17:16→18:11)
--- NOTE | 2018-11-30 18:38 | HP ---
HISTORY AND PHYSICAL DATE OF SERVICE: 11/30/2018 CHIEF COMPLAINT: Shortness of breath. HISTORY OF PRESENT ILLNESS: This 82-year-old woman with a past medical history of multiple medical problems including pleural effusion, history of acute on chronic kidney disease, history of CHF, history of diabetes, hypertension, history of atrial fibrillation, being followed by Dr. Bee in the outpatient setting had at least 2 previous thoracocentesis. At that time, the fluid was transudate, but the cytology showed mesothelial cells and macrophage inflammatory cells. No significant evidence of any malignancy was reported. No chest pain. No palpitations. The patient came to [facility] Emergency Room and chest x-ray was done which showed bilateral infiltrate and pleural effusion, greater on the left. The patient was given some breathing treatment. The patient felt much better and the patient was admitted for further evaluation and treatment. There is no history of fever, rigors or chills. No history of headache, loss of consciousness or seizures at this time. The possibility of CHF is also raised at this time. PAST MEDICAL HISTORY: History of atrial ablation, history of CHF, diabetes, hypertension, DJD, history of pneumonia, history of . MEDICATIONS: Prior to admission include home medications are: 1. Primal force metabolic acid 1 p.o. daily. 2. Argina 1 tablet p.o. daily. 3. Norvasc 5 mg p.o. daily. 4. PreserVision 1 capsule p.o. b.i.d. 5. K-Dur 20 mEq p.o. daily. 6. Kelp 1 tablet p.o. daily. 7. Iron sulfate 325 mg p.o. daily. 8. Biotin 5 mg p.o. b.i.d. 9. Coenzyme Q 100 mg p.o. b.i.d. 10.Metoprolol 25 mg p.o. b.i.d. 11.Lasix 40 mg p.o. b.i.d. 12.Vitamin D3 2000 daily. ALLERGIES: PENICILLIN, ORANGE JUICE. FAMILY HISTORY: History of cancer in the family. SOCIAL HISTORY: No history of smoking. No history of alcohol intake. REVIEW OF SYSTEMS: ENT: Diminished vision. Diminished hearing. CARDIOVASCULAR system: As mentioned earlier. RESPIRATORY: As mentioned earlier. GI no nausea or vomiting. : No dysuria. NERVOUS SYSTEM: No numbness or weakness. ALLERGY/IMMUNOLOGY: No asthma or hayfever. MUSCULOSKELETAL as mentioned earlier. HEMATOLOGY/ONCOLOGY: No history of anemia. ENDOCRINE: No history of diabetes or hypothyroidism. CONSTITUTIONAL: As mentioned earlier. Dermatology: Negative. Rheumatology: Negative. Psychiatry: As mentioned earlier. PHYSICAL EXAMINATION: Alert and oriented times three. Pulse 79, blood pressure 122/63, respirations 16, temperature 98.4, pulse ox 98% on 3 L. HEENT are conjunctivae normal. Oral mucosa moist. NECK is no jugular venous distention. No carotid bruit. No lymph node enlargement. Cardiovascular system: S1, S2 muffled. RESPIRATORY: Breath sounds diminished in the bases. Bilateral scattered rhonchi and crackles. Expiratory wheezing also present. ABDOMEN: Soft, nontender. No mass palpable. LEGS: No edema. No swelling. NERVOUS SYSTEM: Higher functions as mentioned earlier, moves all four limbs. No focal deficits. LYMPHATICS: No lymph nodes palpable in the neck, axillae or groin. SKIN: No ulcer, rashes or bleeding. JOINTS: No active deforming arthropathy. LABS: WBC 6.2, hemoglobin 10.6, creatinine 3.1, glucose is 111. ASSESSMENT: 1. Acute left pleural effusion, recurrent, possibly secondary to congestive heart failure, acute exacerbation. 2. Congestive heart failure, acute exacerbation with ejection fraction unknown. 3. History of diabetes type 2. 4. Hypertension. 5. History of degenerative joint disease. 6. History of pneumonia. 7. History of section. 8. History of cholecystectomy. 9. Anemia, normocytic anemia of chronic disease. 10.Chronic kidney disease stage 3. RECOMMENDATION: This 82-year-old gentleman woman who presented with multiple complex medical issues, we will monitor the patient closely, continue the current medications, management and symptomatic treatment. Recommend pulmonary consultation with Dr. Chery for possible thoracocentesis. I would also recommend repeat 2D echo and CT scan of the chest. The patient also had worsening renal failure which might be contributing to the fluid overload also. Lasix has been initiated. I would also recommend nephrology evaluation also. Overall prognosis guarded because of multiple complex medical issues. Further recommendations to follow. A copy of dictation being forwarded to Dr. Bee who is the primary physician. MMODL / IJN: [id number] /
--- NOTE | 2018-11-30 19:16 | CT ---
EXAMINATION TYPE: CT ChestAbdPelvis wo con DATE OF EXAM: 11/30/2018 COMPARISON: CT chest 07/10/2016 HISTORY: LT side pleural effision. Hx afib, renal failure, chf. CT DLP: 581.8 mGycm. Automated Exposure Control for Dose Reduction was Utilized. TECHNIQUE: CT scan of the thorax, abdomen and pelvis is performed without IV contrast. FINDINGS: There are bilateral pleural effusions and much larger on the left side. There is airspace consolidati on and atelectasis left lower lobe. Heart is enlarged. There is atherosclerotic vascular calcificatio n. I see no mediastinal adenopathy. Thoracic aorta is atheromatous. There is no aneurysm. There is ex tensive coronary artery calcification. I see no hilar mass. Stomach appears intact. Spleen appears intact. There is no evidence of pancreatic mass. There are cli ps from cholecystectomy. Liver shows no focal defect. The bile ducts are not dilated. There is no adrenal mass. Kidneys have normal size and contour. There is no hydronephrosis. There is no retroperitoneal adenopathy. Abdominal aorta is atheromatous. There are diverticula in the sigmoid colon. Bladder distends smoothly. There is no inguinal hernia. There is no free fluid in the pelvis. There is no mesenteric edema. There is no sign of ascites. There is no sign of free air. Appendix mariely ears normal. There is multilevel spondylotic changes in the thoracic and lumbar spine. There is no co mpression fracture. There is mild thoracolumbar levoscoliosis. Uterus is anteverted. There is mild zhao bcutaneous edema over the lower lumbar spine. IMPRESSION: There is moderate-sized left pleural effusion with left pulmonate consolidation and atelectasis not s ignificantly different than old exam. There is new small right pleural effusion compared to old exam. Extensive atherosclerotic vascular disease. Cardiomegaly. Mild sigmoid diverticulosis.
[2018-11-30 20:35] LABS: Glucose,Whole Blood 192 mg/dL (75-99)
[2018-11-30] MEDS: INSULIN ASPART (NovoLOG) 100 UNIT/ML VIAL SQ SCH (20:36)
[2018-11-30] MEDS: VIT A,C & E-LUTEIN-MINERALS 1 EACH TAB PO SCH (20:36)
[2018-11-30] MEDS: METOPROLOL TARTRATE 25 MG TAB PO SCH (20:36)
[2018-11-30] MEDS ORDERED: NON-FORMULARY DRUG (Ubidecarenone [Co Q-10] 200 MG) PO SCH (21:00)
[2018-11-30] MEDS ORDERED: NON-FORMULARY DRUG (Biotin [Biotin] 5 MG) PO SCH (21:00)
[2018-12-01 07:02] LABS: Basophils % (A) 0 %; Eosinophils # (A) 0.1 k/uL (0-0.7); Eosinophils % (A) 2 %; HCT 32.6 % (34.0-46.0); HGB 10.1 gm/dL (11.4-16.0); Hypochromasia Slight; Lymphocytes # (A) 0.7 k/uL (1.0-4.8); Lymphocytes % (A) 11 %; MCH 28.7 pg (25.0-35.0); MCHC 30.8 g/dL (31.0-37.0); MCV 93.1 fL (80.0-100.0); Mean Platelet Volume 8.2; Monocytes # (A) 0.4 k/uL (0-1.0); Monocytes % (A) 6 %; Neutrophils # (A) 5.1 k/uL (1.3-7.7); Neutrophils % (A) 78 %; Platelet Count 238 k/uL (150-450); RBC 3.51 m/uL (3.80-5.40); RDW 13.9 % (11.5-15.5); WBC 6.5 k/uL (3.8-10.6)
--- NOTE | 2018-12-01 07:07 | P.NPCON ---
History of Present Illness - Reason for Consult Consult date: 12/01/18 acute renal failure - Chief Complaint Shortness of breath - History of Present Illness This is a 82-year-old female seen in consultation because of acute kidney injury and chronic kidney disease This an 82-year-old female presents emergency department with family chief complaint of dyspnea since Sunday. Patient does have a history of CHF and was seen by PCP who stated that she had a large pleural effusion. She has had thoracentesis in the past. Patient denies any current chest pain or fever. She does have slight cough which is nonproductive. She does have swelling of her lower extremities. Patient denies any headache, dizziness, abdominal pain, nausea vomiting. Family is concerned that she is more weak than usual She has had worsening kidney function or the last 1 year. Creatinine was 1.7 on 12/14/2017, she has a microalbumin to creatinine ratio of 1.7 g. Creatinine continues to go up and was 2.9 dated 07/18/2018 and and 3.5 on 10/08/2018 Ultrasound on 09/03/2018 shows 9 cm, and 10 cm kidneys. Denies taking any nonsteroidals, no nausea vomiting has a poor appetite. No diarrhea. No history to taking any herbal medications No history of fever chills she does have mild dry cough Past Medical History Past Medical History: Atrial Fibrillation, Heart Failure, Diabetes Mellitus, Hypertension, Osteoarthritis (OA), Pneumonia Additional Past Medical History / Comment(s): MURMUR. Diarrhea History of Any Multi-Drug Resistant Organisms: None Reported Past Surgical History: Section, Cholecystectomy Past Anesthesia/Blood Transfusion Reactions: No Reported Reaction Past Psychological History: No Psychological Hx Reported Additional Psychological History / Comment(s): PT IS INDEPENDANT, LIVES WITH SPOUSE IN SINGLE LEVEL HOME THAT HAS 2 STEPS TO GET INTO HOME. IS SIGNED UP FOR MEALS ON WHEELS. NO MEDICZL EQUIPMENT. NO PETS. PT USED TO WORK IN A FACTORY. Smoking Status: Never smoker Past Alcohol Use History: None Reported Past Drug Use History: None Reported - Past Family History Father Additional Family Medical History / Comment(s): IN HIS 20'S WAS ELECTROCUTED Mother Family Medical History: Cancer Additional Family Medical History / Comment(s): LEUKEMIA Daughter(s) Family Medical History: Cancer Additional Family Medical History / Comment(s): Uterine cancer Medications and Allergies Home Medications Medication Instructions Recorded Confirmed Type Furosemide [Lasix] 40 mg PO BID #30 tab 07/19/16 11/30/18 Rx Potassium Chloride ER [K-Dur 20] 20 meq PO DAILY #30 tab.er.prt 07/19/16 11/30/18 Rx Kelp 1 tab PO DAILY 03/06/18 11/30/18 History Biotin 5 mg PO BID 10/16/18 11/30/18 History Cholecalciferol (Vitamin D3) 2,000 unit PO DAILY 10/16/18 11/30/18 History [Vitamin D3] Metoprolol Tartrate [Lopressor] 25 mg PO BID 10/16/18 11/30/18 History Ubidecarenone [Co Q-10] 200 mg PO BID 10/16/18 11/30/18 History Ferrous Sulfate [Feosol] 325 mg PO DAILY #30 tab 10/18/18 11/30/18 Rx Arjuna 1 tab PO DAILY 11/30/18 11/30/18 History Primal Force Metabolic Rescue 1 tab PO DAILY 11/30/18 11/30/18 History Vit C/E/Zn/Coppr/Lutein/Zeaxan 1 cap PO BID 11/30/18 11/30/18 History [Preservision Areds 2 Softgel] amLODIPine [Norvasc] 5 mg PO DAILY 11/30/18 11/30/18 History Allergies Allergy/AdvReac Type Severity Reaction Status Date / Time Penicillins Allergy Rash/Hives Verified 11/30/18 10:44 orange juice AdvReac Nausea Verified 11/30/18 10:44 Physical Exam Vitals: Vital Signs Temp Pulse Pulse Resp BP BP Pulse Ox 12/01/18 00:59 98.6 F 78 18 128/69 97 11/30/18 20:02 70 11/30/18 19:53 70 11/30/18 19:45 98.5 F 78 16 117/61 100 11/30/18 16:11 70 11/30/18 15:56 70 11/30/18 14:45 98.5 F 79 16 122/63 98 11/30/18 14:00 80 22 109/67 98 11/30/18 13:30 67 20 123/71 99 11/30/18 13:00 78 22 119/80 100 11/30/18 12:30 68 22 100 11/30/18 12:00 75 22 124/74 99 11/30/18 11:30 78 18 115/73 99 11/30/18 11:23 73 11/30/18 11:13 69 11/30/18 11:00 74 18 126/68 99 11/30/18 09:58 98.0 F 75 24 124/62 91 L Intake and Output 11/30/18 11/30/18 12/01/18 14:59 22:59 06:59 Intake Total 250 Balance 250 Intake: Oral 250 Other: Voiding Method Toilet # Voids 2 # Bowel Movements 1 Weight 69.853 kg 156.5 kg Ill-looking female of stated age HEENT exam no JVP neck is supple no facial asymmetry Lungs are significant for coarse crackle and diminished air entry with dullness on the left side posteriorly Heart sounds are unremarkable for any murmur rub gallop she has atrial fibrillation. Abdomen soft nontender no organomegaly ascites masses noted Extremity exam was mild edema She has pallor. Neurologically awake alert oriented no asterixis Results - Lab Results Most recent lab results Calcium 9.5 mg/dL (8.4-10.2) 11/30/18 10:30 Magnesium 2.2 mg/dL (1.6-2.3) 11/30/18 10:30 11/30/18 10:30 11/30/18 10:30 Assessment and Plan Assessment: Impression 1. Acute kidney injury, secondary to cardiorenal syndrome. Creatinine was 3.63 days ago on 11/28/2018 and went down to 3.41 this morning. 2. Chronic kidney disease with nephrosclerosis and possibly early diabetic nephropathy, microalbumin to creatinine ratio is 114 mg/g of creatinine. Ultrasound shows 9 cm and 10 cm kidneys 3. Significant left pleural effusion status post tap last time was 10/15/2018. 4. Atrial fibrillation chronic. 5. Pulmonary hypertension, right ventricular pressure being 56 mL per minute on echocardiogram. 6. Diverticulosis per computed tomography scan report. Recommendation 1. Will hold off on any more diuretics and see if a pleural tap can be performed. 2. Patient was educated about the need for dialysis in the future in the next few months possibly 3. Because of the propensity to cause edema and reduced the amlodipine from 5 mg to 2.5 mg. 4. Monitor labs closely. 5. Monitor intake and output closely. Thank you for this consultation we'll follow with you
[2018-12-01 07:11] LABS: Calcium 9.1 mg/dL (8.4-10.2); Potassium 3.9 mmol/L (3.5-5.1)
[2018-12-01 07:19] LABS: Glucose,Whole Blood 181 mg/dL (75-99)
[2018-12-01] MEDS: IPRATROPIUM-ALBUTEROL 3 ML NEB INHALATION PRN ×4 (08:36→20:39)
[2018-12-01] MEDS: INSULIN ASPART (NovoLOG) 100 UNIT/ML VIAL SQ SCH ×4 (08:56→21:03)
[2018-12-01] MEDS: VIT A,C & E-LUTEIN-MINERALS 1 EACH TAB PO SCH ×2 (08:57→21:04)
[2018-12-01] MEDS: POTASSIUM CHLORIDE ER 20 MEQ TAB.ER PO SCH (08:57)
[2018-12-01] MEDS: amLODIPine 5 MG TAB PO SCH (08:57)
[2018-12-01] MEDS: CHOLECALCIFEROL 1,000 UNIT TAB PO SCH (08:58)
[2018-12-01] MEDS: FERROUS SULFATE 325 MG TAB PO SCH (08:58)
[2018-12-01] MEDS ORDERED: [UNRECOGNIZED DRUG - OTHER] PO SCH (09:00)
[2018-12-01] MEDS ORDERED: [UNRECOGNIZED DRUG - OTHER] PO SCH (09:00)
[2018-12-01] MEDS ORDERED: KELP PO SCH (09:00)
[2018-12-01] MEDS ORDERED: amLODIPine 5 MG TAB PO SCH (09:00)
[2018-12-01] MEDS: METOPROLOL TARTRATE 25 MG TAB PO SCH ×2 (09:02→21:03)
--- NOTE | 2018-12-01 09:47 | US ---
EXAMINATION TYPE: US chest DATE OF EXAM: 12/01/2018 COMPARISON: CT, US CLINICAL HISTORY: Markings for thoracentesis by pulmonary staff. TECHNIQUE: Targeted ultrasound of the posterior bilateral EXAM MEASUREMENTS: Right Pleural Effusion pocket size: 2.4 cm A/P, not marked Left Pleural Effusion pocket size: 8.5 cm A/P Left skin surface to fluid distance: 4.6 cm A/P Left side was marked for possible thoracentesis outside the dept. Pulmonologists are able to review the images in the patient?s EMR. IMPRESSIONS: 1. Bilateral pleural effusions, larger on the left.
--- NOTE | 2018-12-01 10:33 | PCN ---
PROCEDURE NOTE PROCEDURE: Left thoracentesis. PREOPERATIVE DIAGNOSIS: Left pleural effusion. POSTOPERATIVE DIAGNOSIS: Left pleural effusion. OPERATORS: Dr. Chery and Dr. Prajapati. Indication Pleural effusion. A time-out was completed verifying correct patient, procedure, site, positioning , and implant (s) or special equipment if applicable. Ultrasound guidance was used and appropriate fluid pocket was identified and marked. Patient was positioned, prepped and draped in usual sterile fashion. Lidocaine was used to anesthetize the area. A Thoracentesis catheter was introduced into the pleural space and fluid was removed. Blood loss was none. A chest x-ray was ordered to evaluate for pneumothorax. Total Fluid Removed 1100 mL was removed. Color of Fluid Fluid was sent for appropriate laboratory tests. Patient tolerated the procedure well and there were no complications. The left posterior chest was marked by ultrasound. There was no immediate complication. There was no obvious pneumothorax on chest x-ray. The patient tolerated the procedure well. There was no immediate complication. MMODL / IJN: [id number] /
--- NOTE | 2018-12-01 11:00 | XR ---
EXAMINATION TYPE: XR chest 1V portable DATE OF EXAM: 12/01/2018 COMPARISON: 11/30/2018 INDICATION: Postthoracentesis TECHNIQUE: Single frontal view of the chest is obtained. FINDINGS: The heart size is moderately prominent. The pulmonary vasculature is normal. There is a left pneumothorax. The left pleural effusion is largely resolved. Some mild infiltrate may remain at the right base. IMPRESSION: 1. Small loculated left lung base pneumothorax. A Red level critical message alert has been initiated for Shaw Chery via the [employer] Results System on 12/01/2018 10:57 AM. This message alert has been sent to Shaw Chery via th e preferences provided by the clinician for the receipt of Radiology Critical Findings. Message ID [id number].
--- NOTE | 2018-12-01 11:03 | CONS ---
CONSULTATION DATE OF SERVICE: December 01, 2018 REASON FOR CONSULTATION: Shortness of breath HISTORY OF PRESENT ILLNESS: This is an 82-year-old female who presents to the emergency department with complaints of shortness of breath. She has been short of breath for a number of days prior to admission about 5 or so. The patient does have a history of underlying congestive heart failure and has a previous history of a large left-sided pleural effusion drained by myself actually in September of this year. Anyway, the patient denies any chest pain or chest discomfort. No fever, chills. She does have a bit of a nonproductive cough. She was initially reluctant to have a repeat thoracentesis because she states that the first time I did it really hurt. I do not recall that. The patient otherwise is doing reasonably well. There is no fever or chills. She is not coughing up any phlegm. There are no GI issues such as nausea, vomiting or diarrhea. There are no issues. HOME MEDICATIONS: Include kelp, biotin, vitamin D3, metoprolol, coenzyme Q, Primaforce metabolic rescue, I-vitamins, amlodipine, Lasix, potassium chloride. ALLERGIES: PENICILLIN AND ORANGE JUICE. PAST MEDICAL HISTORY: Atrial fibrillation, chronic heart disease, diabetes mellitus, hypertension, DJD and pneumonia. Also, pleural effusion. SURGICAL HISTORY: Includes primarily C-sections, thoracentesis and cholecystectomy. SOCIAL HISTORY: Significant that she is a lifelong nonsmoker. Denies alcohol use or illicit drug use. FAMILY HISTORY: Includes a father who is in his 20s because he was electrocuted and mother who at an older age with leukemia. She does have a sister with uterine cancer. PHYSICAL EXAMINATION: VITAL SIGNS: Current vital signs include temperature 98.8, heart rate 70, respiratory rate 16, blood pressure 124/85, 2 L saturation 97%. Appears in no acute distress. HEENT examination is grossly unremarkable. Nasal O2 in place. NECK: Neck is supple. Full range of motion. No adenopathy. CARDIOVASCULAR examination reveals regular rhythm and rate. S1, S2 normal. No S3, S4, or murmur. HR is 80. LUNGS: Reveal diminished breath sounds on the left. There is dullness at the left base. Right breath sounds are clear. No wheezes, rhonchi, or crackles on the right side. ABDOMEN is soft. Bowel sounds are heard. EXTREMITIES are intact. No cyanosis, clubbing, or significant edema. SKIN: Without rash. NEUROLOGIC examination is brief but nonfocal. X-RAY: Chest x-ray from November 30 shows a large left infiltrative process. This turned out to be most likely a fluid accumulation/pleural effusion. CT of the chest shows a moderate- sized left-sided pleural effusion with subpulmonic consolidation and atelectasis. This exam was not much different from the prior exam done in June 2016. ASSESSMENT: 1. Shortness of breath, likely related to the patient's history of left pleural effusion. 2. History of congestive heart failure. 3. Status post drainage of left pleural effusion, with 1160 mL of fluid removed. Fluid was sent for analysis in the laboratory. 4. Hypertension. 5. Diabetes mellitus. 6. Heart failure. 7. Osteoarthritis. 8. History of pneumonia. PLAN: Dated December 01, 2018. The patient did well during the thoracentesis. The patient had 1100 mL of fluid removed. She felt better immediately. A repeat chest x-ray is ordered in the morning. No additional recommendations are made. We will continue to follow. Prognosis is guarded. The patient appears not to have any intrinsic pulmonary disease. MMODL / IJN: [id number] / MTDD
[2018-12-01 11:17] LABS: Glucose,Whole Blood 265 mg/dL (75-99)
[2018-12-01 12:10] LABS: Appearance,BF Hazy; Color,BF Yellow; RBC, Body Fluid 6550 /uL
[2018-12-01 12:11] LABS: Nucleated Cells, Body Fluid 900 /uL
[2018-12-01 12:19] LABS: Mononuclear WBC,Body Fluid 94 %; Polynuclear WBC,Body Fluid 5 %; Total Cells Counted,Body Fluid 100
[2018-12-01 16:47] LABS: Glucose,Whole Blood 255 mg/dL (75-99)
[2018-12-01 21:05] LABS: Glucose,Whole Blood 268 mg/dL (75-99)
--- NOTE | 2018-12-01 21:39 | PN ---
PROGRESS NOTE DATE OF SERVICE: 12/01/2018. This 82-year-old woman was admitted with acute left pleural effusion is being closely monitored. Dr. Chery performed thoracocentesis of about 1100 mL. The patient is feeling slightly better. No chest pain. No palpitations. No fever. EXAM: Alert and oriented x2. Pulse 68, blood pressure 119/75, respirations 16, temp 98.6, pulse ox 98% on room air. HEENT: Conjunctivae normal. NECK: No jugular venous distention. CARDIOVASCULAR: S1, S2. RESPIRATORY: Breath sounds diminished in the bases. Breath sounds are markedly diminished on the left side. ABDOMEN: Soft, nontender. NERVOUS SYSTEM: No focal deficits. LABS: WBC 6.2, hemoglobin 10.1 sodium 134, creatinine 3.43. The baseline creatinine is 3.66. ASSESSMENT: 1. Acute left pleural effusion, recurrent, possibly secondary to congestive heart failure, acute exacerbation, status post thoracocentesis of 1100 mL fluid. 2. Congestive heart failure acute exacerbation, ejection fraction unknown. 3. Acute on chronic renal failure. 4. Possibly chronic renal failure stage 3 baseline. 5. Diabetes mellitus type 2. 6. Hypertension. 7. History of degenerative joint disease. 8. History of pneumonia. 9. History of section. 10.History of cholecystectomy. 11.Anemia, normocytic anemia of chronic disease. 12.FULL CODE with instructions. RECOMMENDATIONS AND DISCUSSION: I recommend to continue current management and symptomatic treatment at this time. Continue with Lasix 1 dosage and continue the bronchodilators. I would also recommend nephrology and pulmonary evaluation also. PT/OT evaluation and we will continue to monitor. Prognosis guarded because of multiple complex medical issues and further recommendations to follow. Discussed with the family. MMODL / IJN: [id number] /
[2018-12-01] MEDS: FUROSEMIDE 10 MG/ML 4 ML VIAL IV SCH (22:19)
[2018-12-02 06:49] LABS: Glucose,Whole Blood 168 mg/dL (75-99)
[2018-12-02] MEDS: INSULIN ASPART (NovoLOG) 100 UNIT/ML VIAL SQ SCH ×2 (07:50→12:49)
[2018-12-02 07:57] LABS: Basophils % (A) 0 %; Eosinophils # (A) 0.1 k/uL (0-0.7); Eosinophils % (A) 2 %; HCT 32.2 % (34.0-46.0); HGB 10.1 gm/dL (11.4-16.0); Lymphocytes # (A) 0.9 k/uL (1.0-4.8); Lymphocytes % (A) 11 %; MCHC 31.5 g/dL (31.0-37.0); Mean Platelet Volume 8.1; Monocytes # (A) 0.5 k/uL (0-1.0); Monocytes % (A) 7 %; Neutrophils % (A) 78 %; Platelet Count 257 k/uL (150-450); RDW 14.1 % (11.5-15.5); WBC 7.8 k/uL (3.8-10.6)
[2018-12-02 08:07] VITALS: BP 118/67; RESP 16; TEMP 98.5
[2018-12-02 08:22] LABS: Potassium 4.4 mmol/L (3.5-5.1)
[2018-12-02] MEDS: IPRATROPIUM-ALBUTEROL 3 ML NEB INHALATION PRN (08:23)
[2018-12-02 08:26] VITALS: PULSE 72
--- NOTE | 2018-12-02 08:49 | XR ---
EXAMINATION TYPE: XR chest 1V portable DATE OF EXAM: 12/02/2018 COMPARISON: 12/01/2018 HISTORY: Shortness of breath TECHNIQUE: Single frontal view of the chest is obtained. FINDINGS: Left-sided pneumothorax is stable although there now is increasing pleural fluid on the le ft. Area of consolidation mass in the left upper lobe noted. Right basilar consolidation and diffuse interstitial pattern seen. Atherosclerotic change aorta. Diffuse osteopenia and arthropathy shoulders . IMPRESSION: 1. Stable left-sided pneumothorax measuring approximately 20-25% with interval increase in the amount of pleural fluid on the left. 2. Bilateral areas of consolidation.
[2018-12-02] MEDS: CHOLECALCIFEROL 1,000 UNIT TAB PO SCH (09:06)
[2018-12-02] MEDS: POTASSIUM CHLORIDE ER 20 MEQ TAB.ER PO SCH (09:06)
[2018-12-02] MEDS: amLODIPine 5 MG TAB PO SCH (09:06)
[2018-12-02] MEDS: VIT A,C & E-LUTEIN-MINERALS 1 EACH TAB PO SCH (09:06)
[2018-12-02] MEDS: FERROUS SULFATE 325 MG TAB PO SCH (09:06)
[2018-12-02] MEDS: METOPROLOL TARTRATE 25 MG TAB PO SCH (09:06)
--- NOTE | 2018-12-02 10:30 | P.PN ---
Subjective Patient is seen in follow-up for chronic kidney disease. 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 Patient's creatinine recently has been in the range of 2.9-3.5. Patient presented to the hospital with weakness. She was also dyspneic. She was noted to have a large left-sided pleural effusion and underwent thoracentesis on December 01 with 1.1 L drained. She feels better today. Urine output is good. Vital signs are stable. General: The patient appeared well nourished and normally developed. HEENT: Head exam is unremarkable. Neck is without jugular venous distension. LUNGS: Breath sounds decreased. HEART: Rate and Rhythm are regular. First and second heart sounds normal. No murmurs, rubs or gallops. ABDOMEN: Abdominal exam reveals normal bowel sounds. Non-tender and non- distended. No evidence of peritonitis. EXTREMITITES: Trace edema. Objective - Vital Signs Vital signs: Vital Signs Temp 98.5 F 12/02/18 07:00 Pulse 72 12/02/18 08:37 Resp 16 12/02/18 07:00 BP 118/67 12/02/18 07:00 Pulse Ox 98 12/02/18 07:00 Intake & Output 12/01/18 12/02/18 12/02/18 18:59 06:59 18:59 Weight 157 kg Other: Voiding Method Toilet # Voids 3 1 # Bowel Movements 1 1 - Labs CBC & Chem 7: 12/02/18 07:19 12/02/18 07:19 Labs: Abnormal Lab Results - Last 24 Hours (Table) 12/01/18 12/01/18 12/01/18 Range/Units 11:06 16:35 20:49 RBC (3.80-5.40) m/uL Hgb (11.4-16.0) gm/dL Hct (34.0-46.0) % Lymphocytes # (1.0-4.8) k/uL Sodium (137-145) mmol/L Chloride (98-107) mmol/L BUN (7-17) mg/dL Creatinine (0.52-1.04) mg/dL Glucose (74-99) mg/dL POC Glucose (mg/dL) 265 H 255 H 268 H (75-99) mg/dL 12/02/18 12/02/18 12/02/18 Range/Units 06:46 07:19 07:19 RBC 3.50 L (3.80-5.40) m/uL Hgb 10.1 L (11.4-16.0) gm/dL Hct 32.2 L (34.0-46.0) % Lymphocytes # 0.9 L (1.0-4.8) k/uL Sodium 132 L (137-145) mmol/L Chloride 94 L (98-107) mmol/L BUN 63 H (7-17) mg/dL Creatinine 3.47 H (0.52-1.04) mg/dL Glucose 160 H (74-99) mg/dL POC Glucose (mg/dL) 168 H (75-99) mg/dL Microbiology - Last 24 Hours (Table) 12/01/18 10:51 Gram Stain - Preliminary Thoracic Fluid Body Fluid Culture - Preliminary 12/01/18 10:51 Acid Fast Bacilli Culture - Preliminary Thoracic Fluid 12/01/18 10:51 Fungal Culture - Preliminary Thoracic Fluid Assessment and Plan Plan: Assessment: 1. Acute kidney injury mostly prerenal secondary to cardiorenal syndrome. Mildly improved. 2. 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 3. 3. Dyspnea secondary to volume overload. Better. 4. Left-sided pleural effusion status post thoracentesis with 1.1 L drained on December 01. 5. Hypervolemic hyponatremia. 6. Hypertension with chronic kidney disease. Plan: Lasix 40 mg IV once now. Starting this evening, I will change diuretics to Lasix 60 mg orally twice daily. Maintain potassium supplementation. Repeat BMP 2-3 days postdischarge. Follow up outpatient in the next 1-2 weeks. Patient is scheduled for vein mapping as well as dialysis education class in the next 1-2 weeks. No urgent need for renal replacement therapy at this time. I advised her to maintain low salt diet along with 60-70 pounds fluid restriction per day.
[2018-12-02] MEDS: FUROSEMIDE 10 MG/ML 4 ML VIAL IV SCH (10:41)
[2018-12-02] MEDS ORDERED: FUROSEMIDE 10 MG/ML 4 ML VIAL IV STA (10:43)
[2018-12-02 12:20] LABS: Glucose,Whole Blood 209 mg/dL (75-99)
[2018-12-02 12:31] LABS: Total Protein, Body Fluid 2100 mg/dL
[2018-12-02 14:57] VITALS: BMI 69.9
[2018-12-02] MEDS ORDERED: FUROSEMIDE 20 MG TAB PO SCH (16:00)
--- NOTE | 2018-12-02 16:12 | P.PN ---
Subjective Progress Note Date: 12/02/18 Principal diagnosis: Dyspnea secondary to left-sided pleural effusion The patient is seen today 12/02/2018 in follow-up on the regular medical floor. She had been presented with shortness of breath secondary to underlying congestive heart failure and large left-sided pleural effusion. She did undergo a mother thoracentesis yesterday 1100 ML's of fluid removed. Transudate in nature with a protein of 2.1. LDH 72. Cultures pending. He is currently sitting up at the bedside. Awake and alert in no acute distress. No worsening shortness of breath, cough or congestion. Tinea good O2 saturations in the 90s on 2 L/m per nasal cannula. She is anxious to go home. Objective - Vital Signs Vital signs: Vital Signs Temp 98.5 F 12/02/18 07:00 Pulse 72 12/02/18 08:37 Resp 16 12/02/18 07:00 BP 118/67 12/02/18 07:00 Pulse Ox 98 12/02/18 07:00 Intake & Output 12/01/18 12/02/18 12/02/18 18:59 06:59 18:59 Weight 157 kg 157 kg Other: Voiding Method Toilet Toilet # Voids 3 1 3 # Bowel Movements 1 1 - Exam GENERAL EXAM: Alert, active, comfortable in no apparent distress. 2 L nasal cannula. HEAD: Normocephalic. EYES: Normal reaction of pupils, equal size. NOSE: Clear with pink turbinates. THROAT: No erythema or exudates. NECK: No masses, no JVD. CHEST: No chest wall deformity. LUNGS: Equal air entry with faint crackles in the posterior bases. CVS: S1 and S2 normal with no audible murmur, regular rhythm. ABDOMEN: No hepatosplenomegaly, normal bowel sounds, no guarding or rigidity. SPINE: No scoliosis or deformity SKIN: No rashes CENTRAL NERVOUS SYSTEM: No focal deficits, tone is normal in all 4 extremities. EXTREMITIES: There is no peripheral edema. No clubbing, no cyanosis. Peripheral pulses are intact. - Labs CBC & Chem 7: 12/02/18 07:19 12/02/18 07:19 Labs: Abnormal Lab Results - Last 24 Hours (Table) 12/01/18 12/01/18 12/02/18 Range/Units 16:35 20:49 06:46 RBC (3.80-5.40) m/uL Hgb (11.4-16.0) gm/dL Hct (34.0-46.0) % Lymphocytes # (1.0-4.8) k/uL Sodium (137-145) mmol/L Chloride (98-107) mmol/L BUN (7-17) mg/dL Creatinine (0.52-1.04) mg/dL Glucose (74-99) mg/dL POC Glucose (mg/dL) 255 H 268 H 168 H (75-99) mg/dL 12/02/18 12/02/18 12/02/18 Range/Units 07:19 07:19 12:16 RBC 3.50 L (3.80-5.40) m/uL Hgb 10.1 L (11.4-16.0) gm/dL Hct 32.2 L (34.0-46.0) % Lymphocytes # 0.9 L (1.0-4.8) k/uL Sodium 132 L (137-145) mmol/L Chloride 94 L (98-107) mmol/L BUN 63 H (7-17) mg/dL Creatinine 3.47 H (0.52-1.04) mg/dL Glucose 160 H (74-99) mg/dL POC Glucose (mg/dL) 209 H (75-99) mg/dL Microbiology - Last 24 Hours (Table) 12/01/18 10:51 Gram Stain - Preliminary Thoracic Fluid Body Fluid Culture - Preliminary 12/01/18 10:51 Acid Fast Bacilli Culture - Preliminary Thoracic Fluid 12/01/18 10:51 Fungal Culture - Preliminary Thoracic Fluid Assessment and Plan Assessment: Impression: #1 Acute hypoxic respiratory failure secondary to recurrent left-sided pleural effusion. Status post left-sided thoracentesis with 1100 ML's removed. Transudate of in nature. Cultures pending. #2 History of congestive heart failure. #3 Hypertension. #4 Diabetes mellitus. #5 Osteoarthritis. Plan: The patient was seen and evaluated by Dr. Whitaker. Chest x-ray and labs reviewed. She is cleared for discharge from the pulmonary standpoint. Follow- up in our office in 1-2 weeks' time. She is encouraged to call sooner with any recurrence of symptoms or other questions or concerns. I, the cosigning physician, performed a history & physical examination of the patient. Lungs sounds faint crackles in the posterior bases. Maintaining good O2 saturations in the 90s on 2 L/m per nasal cannula. I discussed the assessment and plan of care with my nurse practitioner, Pat Prajapati. I attest to the above note as dictated by her.
--- NOTE | 2018-12-02 18:16 | ECHOF ---
Referral Reason:chf MEASUREMENTS -------- HEIGHT: 149.9 cm WEIGHT: 69.9 kg BP: 114/70 IVSd: 1.1 cm (0.6 - 1.1) LVIDd: 3.8 cm (3.9 - 5.3) LVPWd: 0.7 cm (0.6 - 1.1) IVSs: 1.2 cm LVIDs: 2.8 cm LVPWs: 1.5 cm RVIDd: 2.8 cm (< 3.3) LAESV Index (A-L): 29.79 ml/m Ao Diam: 1.6 cm (2.0 - 3.7) LA Diam: 3.5 cm (2.7 - 3.8) AV Cusp: 0.9 cm (1.5 - 2.6) EPSS: 0.4 cm AR PHT: 459 ms RAP: 20.00* mmHg RVSP: 71.98 mmHg MV EF SLOPE: 66.71 mm/s (70 - 150) MV EXCURSION: 1.11 cm (> 18.000) FINDINGS -------- Atrial fibrillation. This was a technically adequate study. The left ventricular size is normal. There is mild concentric left ventricular hypertrophy. Overa ll left ventricular systolic function is normal with, an EF between 55 - 60 %. The right ventricle is normal in size. Left atrium is mildly dilated by volume. RA appears inlarged Interatrial and interventricular septum intact. The aortic valve is trileaflet and appears structurally normal. There is mild aortic valve sclerosi s without stenosis. There is mild aortic regurgitation. There is no evidence of aortic stenosis. Mild mitral annular calcification present. Mild mitral regurgitation is present. Moderate tricuspid regurgitation present. There is severe pulmonary hypertension. The right ventr icular systolic pressure, as measured by Doppler, is 71.98mmHg. There is no pulmonic regurgitation present. The aortic root size is normal. The inferior vena cava is dilated with no significant inspiratory collapse which is consistent estima diana right atrial pressure of >20 mmHg. Echo free space may represent effusion or a pericardial fat pad. There is no pericardial effusion. CONCLUSIONS -------- 1. Atrial fibrillation. 2. This was a technically adequate study. 3. The left ventricular size is normal. 4. There is mild concentric left ventricular hypertrophy. 5. Overall left ventricular systolic function is normal with, an EF between 55 - 60 %. 6. The right ventricle is normal in size. 7. Left atrium is mildly dilated by volume. 8. RA appears inlarged 9. Interatrial and interventricular septum intact. 10. The aortic valve is trileaflet and appears structurally normal. 11. There is mild aortic valve sclerosis without stenosis. 12. There is mild aortic regurgitation. 13. There is no evidence of aortic stenosis. 14. Mild mitral annular calcification present. 15. Mild mitral regurgitation is present. 16. Moderate tricuspid regurgitation present. 17. There is severe pulmonary hypertension. 18. The right ventricular systolic pressure, as measured by Doppler, is 71.98mmHg. 19. There is no pulmonic regurgitation present. 20. The aortic root size is normal. 21. The inferior vena cava is dilated with no significant inspiratory collapse which is consistent es timated right atrial pressure of >20 mmHg. 22. Echo free space may represent effusion or a pericardial fat pad. 23. There is no pericardial effusion. WATER TEAM LEADER: Magalys Valera RDCS
--- NOTE | 2018-12-02 23:48 | DS ---
DISCHARGE SUMMARY DATE OF SERVICE: 12/02/2018. FINAL DIAGNOSES: 1. Acute left pleural effusion, recurrent, possibly secondary to congestive heart failure, acute exacerbation, status post thoracocentesis about 1.1 L of fluid. 2. Congestive heart failure acute exacerbation ejection fraction unknown. 3. Acute on chronic renal failure. 4. Possible chronic kidney disease stage 3 baseline. 5. Diabetes mellitus type 2. 6. Hypertension. 7. History of degenerative joint disease. 8. History of pneumonia. 9. History of section. 10.History of cholecystectomy. 11.Anemia, normocytic anemia from chronic disease. 12.FULL CODE with instructions. DISCHARGE DISPOSITION: The patient being discharged in stable condition with guarded prognosis. HISTORY OF PRESENT ILLNESS: This 82-year-old woman with a past medical history of multiple medical problems was admitted with acute left pleural effusion. The patient had thoracocentesis of 1.1 L of fluid. The patient improved significantly. On exam, vitals are stable. Cardiovascular S1, S2. Abdomen soft. Nervous system: No focal deficits. Dr. Chery saw the patient and Dr. Whitaker saw the patient. The patient cleared for discharge with the following advice and medications: DISCHARGE ADVICE AND MEDICATIONS: 1. Diet is cardiac diet. 2. Activity limited until followup. 3. Follow up with Dr. Bee in 1-2 days. DISCHARGE MEDICATIONS: 1. Biotin 5 mg p.o. b.i.d. 2. Arjuna 5 mg p.o. daily. 3. Coenzyme Q 200 mg p.o. b.i.d. 4. Kelp p.o. daily. 5. Lopressor 25 mg b.i.d. 6. Norvasc 5 mg p.o. daily. 7. PreserVision 1 p.o. b.i.d. 8. Vitamin D3 2000 daily. 9. DuoNeb t.i.d. and p.r.n. 10.Iron sulfate 320 mg p.o. daily. 11.K-Dur 20 mEq p.o. daily. 12.Lasix 60 mg p.o. b.i.d. CBC, BMP in the outpatient setting. Adjust the Lasix dosage in the outpatient setting. Follow up with Pulmonary as recommended. MMODL / IJN: [id number] /
== END 2018-12-02 17:20 | disposition home or self-care (01) ==
LOC: EC 09:53 → 4SSUR 13:24
PROVIDERS: ADMIT Hospitalist; ATTEND Hospitalist
DX: J90 Pleural effusion, not elsewhere classified (principal); J96.01 Acute respiratory failure with hypoxia; N17.9 Acute kidney failure, unspecified; I13.2 Hypertensive heart and chronic kidney disease with heart failure and with stage 5 chronic kidney disease, or end stage renal disease; I50.9 Heart failure, unspecified; N18.5 Chronic kidney disease, stage 5; E11.22 Type 2 diabetes mellitus with diabetic chronic kidney disease; I48.2 Chronic atrial fibrillation; I27.20 Pulmonary hypertension, unspecified; R63.0 Anorexia; J95.811 Postprocedural pneumothorax; D63.8 Anemia in other chronic diseases classified elsewhere; E87.1 Hypo-osmolality and hyponatremia; I70.0 Atherosclerosis of aorta; K57.30 Diverticulosis of large intestine without perforation or abscess without bleeding; M19.90 Unspecified osteoarthritis, unspecified site; Z79.899 Other long term (current) drug therapy; Z88.0 Allergy status to penicillin; Z91.018 Allergy to other foods; Z87.01 Personal history of pneumonia (recurrent); Z87.19 Personal history of other diseases of the digestive system; Z90.49 Acquired absence of other specified parts of digestive tract; R91.8 Other nonspecific abnormal finding of lung field; Z80.49 Family history of malignant neoplasm of other genital organs; Z80.6 Family history of leukemia
CPT/HCPCS: 32555; 96376 ×2; 96374; 99285; 36415; 94640 ×4; 93005; 93306; 97162; 97166; 87798 ×3; 87496; 87498; 87529; 88108; 88305; 83880; 80053; 80048 ×2; 89050; 83735; 84484; 85025 ×3; 85610; 85730; 87252; 87502; 87634; 87070; 87205; 87116; 87102; 87206; 82945; 83615; 84157; 71045 ×2; 71046; 76604; 71250; 74176; G0378 ×3; J1940 ×3

== ENCOUNTER → 2018-12-24 | Outpatient (CLI) | payer MEDICARE ==
[2018-12-24 15:15] LABS: Basophils % (A) 0 %; Eosinophils # (A) 0.2 k/uL (0-0.7); Eosinophils % (A) 3 %; HCT 34.5 % (34.0-46.0); HGB 10.7 gm/dL (11.4-16.0); Hypochromasia Slight; Lymphocytes # (A) 0.8 k/uL (1.0-4.8); Lymphocytes % (A) 13 %; MCH 28.7 pg (25.0-35.0); MCV 92.4 fL (80.0-100.0); Mean Platelet Volume 8.9; Monocytes # (A) 0.3 k/uL (0-1.0); Monocytes % (A) 5 %; Neutrophils # (A) 4.7 k/uL (1.3-7.7); Neutrophils % (A) 76 %; Platelet Count 246 k/uL (150-450); RBC 3.73 m/uL (3.80-5.40); RDW 15.1 % (11.5-15.5); WBC 6.2 k/uL (3.8-10.6)
[2018-12-24 15:22] LABS: Potassium 4.3 mmol/L (3.5-5.1)
== END | disposition home or self-care (01) ==
LOC: LABPAT 14:41
PROVIDERS: ATTEND Surgery
DX: Z01.812 Encounter for preprocedural laboratory examination (principal); N18.9 Chronic kidney disease, unspecified
CPT/HCPCS: 36415; 80051; 82565; 84520; 85025

== ENCOUNTER 2018-12-27 05:52 | Day surgery (SDC) | payer MEDICARE ==
[2018-12-24 12:04] VITALS: BMI 31.1
[2018-12-27] MEDS ORDERED: ONDANSETRON 4 MG/2 ML VIAL IVP ONE (06:09)
[2018-12-27] MEDS ORDERED: LACTATED RINGERS 1,000 ML IV SCH (06:09)
[2018-12-27] MEDS ORDERED: ONDANSETRON 4 MG/2 ML VIAL IVP PRN (06:09)
[2018-12-27] MEDS ORDERED: LIDOCAINE 1% 20 ML VIAL (10MG/ML) FOR IV START INTRADERMA PRN (06:09)
[2018-12-27] MEDS ORDERED: MORPHINE SULFATE 2 MG/ML SYRINGE IV PRN (06:09)
[2018-12-27] MEDS ORDERED: SODIUM CHLORIDE 0.9% 1,000 ML IV ONE (06:48)
[2018-12-27] MEDS ORDERED: DEXAMETHASONE SOD PHOS (MDV) 100 MG/10 ML VIAL IVP ONE (06:53)
[2018-12-27 06:57] LABS: Glucose,Whole Blood 78 mg/dL (75-99)
[2018-12-27] MEDS ORDERED: ROPIVACAINE 5 MG/ML 30 ML VIAL ONE (07:20)
[2018-12-27] MEDS ORDERED: MIDAZOLAM 2 MG/2 ML VIAL ONE (07:20)
[2018-12-27] MEDS ORDERED: PHENYLEPHRINE-0.9% NACL SYG 1 MG/10 ML SYRINGE ONE (07:20)
[2018-12-27] MEDS ORDERED: HEPARIN SODIUM,PORCINE 5,000 UNIT/ML 1 ML VIAL ONE (07:20)
[2018-12-27] MEDS ORDERED: KETAMINE 10 MG/ML 20 ML VIAL ONE (07:20)
[2018-12-27] MEDS ORDERED: LIDOCAINE 1% INJ 10MG/ML (20 ML MDV) SQ ONE ×2 (08:43)
[2018-12-27 10:25] VITALS: TEMP 97.1
[2018-12-27 10:41] LABS: Glucose,Whole Blood 82 mg/dL (75-99)
[2018-12-27 11:32] VITALS: RESP 16
[2018-12-27 11:50] VITALS: BP 110/77; PULSE 80
--- NOTE | 2018-12-27 12:11 | P.ANPRN ---
Procedure Note - Anesthesia - Nerve Block Performed Left Supraclavicular Single Time Out Performed: Yes Date of Procedure: 12/27/18 Procedure Start Time: : Procedure Stop Time: : Location of Patient Procedure: PreOp Indication: Acute Post-Operative Pain, Requested by Surgeon Sedation Type: Sedate with meaningful contact maintained Preparation: Sterile Prep, Sterile Dressing Position: Supine Needle Types: Pajunk Needle Gauge: 21 Ultrasound used to visualize needle placement: Yes Ultrasound used to observe medication spread: Yes Injectate: 0.5% Ropivacaine (see comment for volume) (ropi .5% 20cc) Blood Aspirated: No Pain Paresthesia on Injection Noted: No Resistance on Injection: Normal Image Stored and Saved: Yes Events: Uneventful and Well Tolerated
--- NOTE | 2018-12-27 16:54 | P.OP ---
Date of Procedure: 12/27/18 Preoperative Diagnosis: CRF stage 5 Postoperative Diagnosis: same Procedure(s) Performed: left upper extremity forearm loop AVG creation Implants: 4-7mm propaten gore graft Anesthesia: regional, local Surgeon: Xavier Bermudez Estimated Blood Loss (ml): 10 Pathology: none sent Condition: stable Disposition: PACU Indications for Procedure: 83 year old female with history of renal disease stage 5 renal failure presents today for creation of left loop forearm graft due to poor size of veins which preclude any fistula creation. Operative Findings: High bifurcation of the brachial artery which was seen with ultrasound. The bra chial artery branches immediately after takeoff of the axillary artery. Description of Procedure: After written informed consent was obtained the patient all risks benefits and competitions were described patient is brought to the operative suite and laid in a supine position with the left arm outstretched on an armboard. The area of the arm was then prepped and draped in usual sterile fashion after appropriate anesthetic was performed per the anesthesiologist. A timeout was performed in normal fashion antibiotics were administered prior to incision. A transverse incision was then created just distal to the elbow and dissection was carried down to the antecubital vein and this was dissected free in a circumferential manner. Proximal and distal control was obtained with vessel loops. Attention was then placed to the artery and the radial artery was then dissected free in a circumferential manner and controlled with vessel loops for the proximal and distal aspect. A tunnel was then created in a loop fashion with a counter-incision made in the forearm and a 4-7 mm Paradox propatent graft was tunneled in a loop fashion. Patient was then administered heparin. Arterial anastomosis was then performed after arteriotomy was created in the radial artery and extended with Pott Muniz scissors. We 4 mm aspect of the graft was then spatulated in normal fashion and anastomosis was created with 6-0 Prolene suture in a running fashion. Control was then released into the graft revealing good pulsatile blood flow. Distal control of the artery was then released. Assessment of the radial artery demonstrated good pulse. The anastomosis was then performed. Venotomy was created with 11 blade scalpel and extended with Pott Muniz scissors. A 7 mm aspect of the graft was then spatulated in normal fashion and anastomosis was created with 6-0 Prolene suture in a running fashion. Prior to last sutures being placed control was released revealing good backbleeding from the vein. The graft was flushed with heparin saline. Control was then released revealing good pulsatile blood flow within the vein with a good palpable thrill noted. Hemostasis was then assured with gel foam and thrombin. Incisions were then closed in a multilayer fashion. Skin was cleansed and dressings were placed. The patient tolerated the procedure well and was sent to PACU for recovery.
== END 2018-12-27 12:34 | disposition home or self-care (01) ==
LOC: OR 05:52
PROVIDERS: ATTEND Surgery
DX: E11.22 Type 2 diabetes mellitus with diabetic chronic kidney disease (principal); I13.2 Hypertensive heart and chronic kidney disease with heart failure and with stage 5 chronic kidney disease, or end stage renal disease; N18.5 Chronic kidney disease, stage 5; I50.9 Heart failure, unspecified; I48.91 Unspecified atrial fibrillation; E78.5 Hyperlipidemia, unspecified; D64.9 Anemia, unspecified; K57.90 Diverticulosis of intestine, part unspecified, without perforation or abscess without bleeding; Z87.09 Personal history of other diseases of the respiratory system; Z88.0 Allergy status to penicillin; Z90.49 Acquired absence of other specified parts of digestive tract; Z79.4 Long term (current) use of insulin; Z79.899 Other long term (current) drug therapy; Z98.890 Other specified postprocedural states; Z83.3 Family history of diabetes mellitus; Z80.9 Family history of malignant neoplasm, unspecified
CPT/HCPCS: 36830; 64415; L8670; J2250; J1644; J0690; J2405; J2001; J1100; J2795; J2370; 64413